=== PATIENT | female | born 1945 | race Caucasian/White ===

== ENCOUNTER → 2017-09-08 16:55 | Outpatient (CLI) | payer MEDICARE, OTHER, SELFPAY ==
[2017-09-08 18:01] LABS: Absolute Lymphocyte Count 2.27 X10^3/ul (0.83-4.51); Absolute Neutrophil Count 4.9 X10^3/uL (2.0-7.7); Basophil# 0.04 X10^3/uL; Basophil% 0.5 % (0-1); Eosinophil# 0.37 X10^3/uL; Eosinophils% 4.4 % (0-5); Hemoglobin 12.5 g/dl (12.0-15.0); Lymphocyte # 2.27 X10^3/ul (4.0); Lymphocyte % 27.1 % (19-41); Mean Corp Hgb Conc 31.3 g/gl (32-36); Mean Corpuscular Volume 96.2 fL (81-99); Mean Platelet Vol. 9.6 fl (6.2-12.0); Monocyte# 0.84 X10^3/uL; Neutrophil # 4.86 X10^3/uL (2.7-7.7); Neutrophil % 57.9 % (47-70); Platelet Count 280 K/mm3 (150-450); RBC Distribution Width CV 13.5 % (11.6-14.6); RBC Distribution Width SD 46.9 fl (35.1-43.9); Red Blood Count 4.16 M/mm3 (4.2-5.4); White Blood Count 8.4 K/mm3 (4.4-11.0)
[2017-09-08 18:14] LABS: Hemoglobin A1c 6.5 % (4.2-6.3)
[2017-09-08 18:15] LABS: POSITIVE COUNT NO; POSITIVE DIFFERENTIAL NO; POSITIVE MORPHOLOGY NO
[2017-09-08 18:22] LABS: Erythrocyte Sedimentation Rate 10 mm/hr (0-30)
[2017-09-08 18:37] LABS: Microalbumin:Creatinine Ratio 90.1 mg/g CRE (<30 mg/g CRE)
[2017-09-08 18:38] LABS: Vitamin B12 1869 pg/mL (211-911)
[2017-09-08 18:43] LABS: AST(SGOT) 30 U/L (15-37); Alanine Aminotransfer ALT/SGPT 37 U/L (13-56); Albumin, Serum 3.6 g/dL (3.2-5.0); Alkaline Phosphatase 105 U/L (45-117); Anion Gap 10 (5-15); BUN 31 mg/dL (7-18); BUN/Creat Ratio 20.9 RATIO (10-20); Calcium,Total 8.4 mg/dL (8.5-10.1); Chloride 104 mmol/L (98-107); Creatinine, Serum 1.48 mg/dL (0.55-1.02); EST Glomerular Filtration Rate 37 mL/min (>60); Est Glom Filt Rate - Afr Amer 45 mL/min (>60); Ferritin 46 ng/mL (8-252); Globulin 3.7 g/dL (2.2-4.2); Glucose 148 mg/dL (74-106); Potassium 3.3 mmol/L (3.5-5.1); Protein, Total 7.3 g/dL (6.4-8.2); Sodium Level 141 mmol/L (136-145); Thyroid Stim Hormone (TSH) 2.25 uIU/mL (0.358-3.74)
[2017-09-10 11:28] LABS: Hep C Antibodies 0.1 s/co ratio (0.0-0.9)
== END ==
PROVIDERS: Family Provider Family Medicine; PCP Family Medicine; Visit Provider Family Medicine
DX: E11.9 Type 2 diabetes mellitus without complications (principal); Z11.59 Encounter for screening for other viral diseases; R53.83 Other fatigue; M76.32 Iliotibial band syndrome, left leg
CPT/HCPCS: 36415; 80053; 82043; 82570; 82607; 82728; 83036; 84443; 85025; 85652; 86803

== ENCOUNTER 2017-12-09 19:37 | Emergency (ER) | payer MEDICARE, OTHER, SELFPAY ==
[2017-12-09 19:38] VITALS: BP 172/102; PULSE 71; RESP 16; TEMP 36.2; O2SAT 96; BMI 42.4
--- NOTE | 2017-12-09 20:40 | RAD_ITS ---
STUDY: X-RAY CHEST REASON FOR EXAM: Female, 72 years old. Status post fall TECHNIQUE: Single AP portable view of the chest. COMPARISON: None. FINDINGS: Markedly elevated right hemidiaphragm with right lower lobe scarring. Left lung is clear. There is no demonstrated pleural abnormality. Normal size heart. Normal mediastinum and jeremías. Normal visualized pulmonary arteries. Normal visualized aortic arch and descending thoracic aorta. Normal visualized thoracic spine. Normal visualized ribs, clavicles, and shoulders. There is no demonstrated abnormality of the visualized soft tissue structures of the upper abdomen. RAD/Chest PA and Lateral IMPRESSION: No acute findings Electronically Signed: Singh Pat DO at 21:19 EDT Tel , Service support ,
--- NOTE | 2017-12-09 20:40 | RAD_ITS ---
STUDY: X-RAY - RIGHT ELBOW REASON FOR EXAM: Female, 72 years old. Right elbow pain after fall TECHNIQUE: 3 view(s) of the elbow. COMPARISON: None. FINDINGS: Nondisplaced fracture through the radial head with soft tissue swelling and joint effusion. No dislocation RAD/Elbow min 3 Views IMPRESSION: Radial head fracture Electronically Signed: Singh Pat DO at 21:19 EDT Tel , Service support ,
--- NOTE | 2017-12-09 20:40 | RAD_ITS ---
STUDY: X-RAY - BILATERAL CLAVICLES REASON FOR EXAM: Female, 72 years old. Right AC joint pain after fall TECHNIQUE: 2 views of the right clavicle. 2 views of the left clavicle. COMPARISON: None. FINDINGS: Normal right clavicle. There is degenerative arthrosis of the right acromioclavicular joint without inferior osseous prominence. Normal right sternoclavicular articulation. Normal left clavicle. There is degenerative arthrosis of the left acromioclavicular joint without inferior osseous prominence. Normal left sternoclavicular articulation. Normal visualized bilateral pulmonary apices. RAD/A/C Jts Grady w or w/o Wts IMPRESSION: No acute findings Electronically Signed: Singh Pat DO at 21:22 EDT Tel , Service support ,
--- NOTE | 2017-12-09 20:57 | ED.VISSUMM ---
- ER Visit Summary Date of Service: 12/09/17 Chief Complaint: Mechanical fall with injury to right elbow, shoulder, ribs and knee History of Present Illness: The patient is a 72 F was at a ice [employer] establishment when she tripped and fell. Landing on her right side. She presents because of bruise and point tenderness over the right knee. She is concerned because she had a total knee arthroplasty. She is able to flex extend and weight-bear without pain. She points on one spot which is ecchymotic she complains of pain. She reports limited range of motion of the elbow and shoulder on the right side. She also complains of pain over the right ribs anterior to posterior axillary line over the fifth 6 and 7 rib area. She denies shortness of breath. She denies any abdominal pain. She denies hematuria. She denies neck pain, paresthesia, anesthesia motor weakness since the injury at the time of the injury. She denied head trauma. She denied loss of conscious. She is on no anticoagulant. Past medical history of type 2 diabetes and hypertension. Physical Examination: Vital signs are marked for an elevated blood pressure 172/102. Head is atraumatic normocephalic. Pupils are equal round reactive. Extraocular muscles are intact. TMs are pearly white with landmarks noted. Nares patent with no drainage. Posterior pharynx without erythema or exudate. Uvula is midline. There is no dysphonia or dysphasia. Trachea is midline. There is no stridor with auscultation of the neck. There is no cervical spine tenderness. She has full active range of motion. There is pain palpation over the right AC joint. There is no ecchymosis deformity of the clavicle. There is no pain the patient of the proximal humerus. There is no pain the patient of the lateral medial epicondyle or olecranon process. There is pain abrasion of the radial head with supination pronation. There is no pain the patient over the distal radius, ulna, carpal bones, metacarpal bones or phalanges. Axillary, median, radial and ulnar function intact. Radial pulses palpable. Breath sounds are slightly diminished on the right. There is no crepitus obtains air. There is no discomfort with AP pressure of the sternum. She has generalized tenderness right side anterior to posterior axillary line. Abdomen is soft nontender with no paraspinal megaly. Examination of right knee reveals ecchymosis. She has full active range of motion. There is no point bony tenderness. GCS is 15. Patient is alert and oriented ?3. Motor is 5/5. Sensation is intact. DTRs are symmetric without clonus or Babinski. Cranial nerves II through XII are intact. Finger to nose to finger was performed adequately. Test Results: Three-view x-ray of the elbow interpreted by me reveals a nondisplaced radial head fracture. There is degenerative joint disease noted as well. No other abnormality is noted. AC x-ray was obtained, 2 views, there is degenerative changes with no separation noted. Two-view chest x-ray reveals an elevated right hemidiaphragm with small effusion on the right. There is no rib fracture or pneumothorax noted. Emergency Department Course and Treatment: Patient drove herself to the ER and reason opiate analgesia was not given. Prescription for [place] was given. Treatment Plan: She was referred to Dr. Beryl Ruggiero [facility] who is on-call for orthopedics. She was placed in a sling and instructed follow-up with Dr. Soriano in 5-7 days Disposition: Discharged home with appropriate home-going instructions Impression: 1. Mechanical fall with injury initial encounter 2. Nondisplaced radial head fracture right elbow 3. First-degree shoulder separation, right 4. Rib contusion This note was generated with [employer] dictation software. It may contain incorrect words, spelling, and punctuation that were not noted in review of the chart prior to signing ED Disposition - Plan for ED Patient: Disposition: Home or Assisted Living Chief Complaint: Fall Instructions: ED Fx Radial Head, ED Sprain AC Joint, ED Contusion Rib Prescriptions: Hydrocodone Bitart/Apap 5-325 [[place] 5MG-325MG] 1 tab PO Q6H PRN PRN 3 Days #10 tab PRN Reason: Pain Referrals: Winston Torres MD [Primary Care Provider] - Kriss Ruggiero DO [STAFF PHYSICIAN] - 5-7 Days Additional Instructions: Wear her sling during the day for comfort.
--- NOTE | 2017-12-09 21:05 | ED.DCSUM_ITS ---
- ER Visit Summary Date of Service: 12/09/17 Chief Complaint: Mechanical fall with injury to right elbow, shoulder, ribs and knee History of Present Illness: The patient is a 72 F was at a ice [employer] establishment when she tripped and fell. Landing on her right side. She presents because of bruise and point tenderness over the right knee. She is concerned because she had a total knee arthroplasty. She is able to flex extend and weight-bear without pain. She points on one spot which is ecchymotic she complains of pain. She reports limited range of motion of the elbow and shoulder on the right side. She also complains of pain over the right ribs anterior to posterior axillary line over the fifth 6 and 7 rib area. She denies shortness of breath. She denies any abdominal pain. She denies hematuria. She denies neck pain, paresthesia, anesthesia motor weakness since the injury at the time of the injury. She denied head trauma. She denied loss of conscious. She is on no anticoagulant. Past medical history of type 2 diabetes and hypertension. Physical Examination: Vital signs are marked for an elevated blood pressure 172/ 102. Head is atraumatic normocephalic. Pupils are equal round reactive. Extraocular muscles are intact. TMs are pearly white with landmarks noted. Nares patent with no drainage. Posterior pharynx without erythema or exudate. Uvula is midline. There is no dysphonia or dysphasia. Trachea is midline. There is no stridor with auscultation of the neck. There is no cervical spine tenderness. She has full active range of motion. There is pain palpation over the right AC joint. There is no ecchymosis deformity of the clavicle. There is no pain the patient of the proximal humerus. There is no pain the patient of the lateral medial epicondyle or olecranon process. There is pain abrasion of the radial head with supination pronation. There is no pain the patient over the distal radius, ulna, carpal bones, metacarpal bones or phalanges. Axillary, median, radial and ulnar function intact. Radial pulses palpable. Breath sounds are slightly diminished on the right. There is no crepitus obtains air. There is no discomfort with AP pressure of the sternum. She has generalized tenderness right side anterior to posterior axillary line. Abdomen is soft nontender with no paraspinal megaly. Examination of right knee reveals ecchymosis. She has full active range of motion. There is no point bony tenderness. GCS is 15. Patient is alert and oriented ?3. Motor is 5/5. Sensation is intact. DTRs are symmetric without clonus or Babinski. Cranial nerves II through XII are intact. Finger to nose to finger was performed adequately. Test Results: Three-view x-ray of the elbow interpreted by me reveals a nondisplaced radial head fracture. There is degenerative joint disease noted as well. No other abnormality is noted. AC x-ray was obtained, 2 views, there is degenerative changes with no separation noted. Two-view chest x-ray reveals an elevated right hemidiaphragm with small effusion on the right. There is no rib fracture or pneumothorax noted. Emergency Department Course and Treatment: Patient drove herself to the ER and reason opiate analgesia was not given. Prescription for [place] was given. Treatment Plan: She was referred to Dr. Beryl Ruggiero [facility] who is on- call for orthopedics. She was placed in a sling and instructed follow-up with Dr. Soriano in 5-7 days Disposition: Discharged home with appropriate home-going instructions Impression: 1. Mechanical fall with injury initial encounter 2. Nondisplaced radial head fracture right elbow 3. First-degree shoulder separation, right 4. Rib contusion This note was generated with [employer] dictation software. It may contain incorrect words, spelling, and punctuation that were not noted in review of the chart prior to signing ED Disposition - Plan for ED Patient: Disposition: Home or Assisted Living Chief Complaint: Fall Instructions: ED Fx Radial Head, ED Sprain AC Joint, ED Contusion Rib Prescriptions: Hydrocodone Bitart/Apap 5-325 [[place] 5MG-325MG] 1 tab PO Q6H PRN PRN 3 Days #10 tab PRN Reason: Pain Referrals: Winston Torres MD [Primary Care Provider] - Kriss Ruggiero DO [STAFF PHYSICIAN] - 5-7 Days Additional Instructions: Wear her sling during the day for comfort.
[2017-12-09 21:21] VITALS: BP 140/80; PULSE 82; RESP 16; O2SAT 98
== END 2017-12-09 21:21 | disposition home or self-care (01) ==
PROVIDERS: Emergency Provider Emergency Medicine; Family Provider Family Medicine; PCP Family Medicine
DX: S52.124A Nondisplaced fracture of head of right radius, initial encounter for closed fracture (principal); S43.101A Unspecified dislocation of right acromioclavicular joint, initial encounter; S20.211A Contusion of right front wall of thorax, initial encounter; S80.01XA Contusion of right knee, initial encounter; M19.021 Primary osteoarthritis, right elbow; W01.0XXA Fall on same level from slipping, tripping and stumbling without subsequent striking against object, initial encounter; Y93.9 Activity, unspecified; Y92.9 Unspecified place or not applicable; E66.9 Obesity, unspecified; J98.4 Other disorders of lung; E11.9 Type 2 diabetes mellitus without complications; I10 Essential (primary) hypertension
CPT/HCPCS: 71046; 73050; 73080; 99283

== ENCOUNTER → 2017-12-11 14:46 | Outpatient (CLI) | payer MEDICARE, OTHER, SELFPAY ==
[2017-12-11 16:02] LABS: Anion Gap 6 (5-15); BUN 21 mg/dL (7-18); BUN/Creat Ratio 21.3 RATIO (10-20); Chloride 103 mmol/L (98-107); Cholesterol 128 mg/dL (200); Creatinine, Serum 0.99 mg/dL (0.55-1.02); EST Glomerular Filtration Rate 59 mL/min (>60); Est Glom Filt Rate - Afr Amer 71 mL/min (>60); Glucose 116 mg/dL (74-106); High Density Lipoprotein 42 mg/dL; Potassium 3.8 mmol/L (3.5-5.1); Sodium Level 139 mmol/L (136-145); Triglycerides 200 mg/dL; Very Low Density Lipoprotein 40 mg/dL (5-40)
== END ==
PROVIDERS: Family Provider Family Medicine; PCP Family Medicine; Visit Provider Family Medicine
DX: E78.00 Pure hypercholesterolemia, unspecified (principal); I10 Essential (primary) hypertension
CPT/HCPCS: 36415; 80048; 80061

== ENCOUNTER → 2017-12-18 15:37 | Outpatient (CLI) | payer MEDICARE, OTHER, SELFPAY ==
--- NOTE | 2017-12-18 15:39 | RAD_ITS ---
STUDY: X-RAY - CERVICAL SPINE REASON FOR EXAM: Female, 72 years old. Cervical spine pain after fall. TECHNIQUE: 6 view(s) of the cervical spine were obtained. COMPARISON: None FINDINGS: There is generalized osteopenia. Normal anterior atlantoaxial articulation. Normal odontoid process. Normal cervical lordosis. Normal vertebral bodies and endplates. There is multilevel intervertebral disc space narrowing, most marked at C2-3, C3-4 and C4-5. There is anterior bony neural foraminal encroachment at C4-5 bilaterally. There is diffuse uncovertebral and facet sclerosis. The soft tissue structures are unremarkable. RAD/Cerv Spine 4 or 5 Views IMPRESSION: Osteopenia with cervical spondylosis as described. Electronically Signed: Glen Victoria MD at 13:17 EDT , Service support ,
--- NOTE | 2017-12-18 15:39 | RAD_ITS ---
STUDY: X-RAY - RIGHT KNEE REASON FOR EXAM: Female, 72 years old. Right knee pain. History of fall. TECHNIQUE: Follow-up view(s) of the knee. COMPARISON: None. FINDINGS: There is generalized osteopenia. There is a 3 component total knee arthroplasty in alignment with no complications identified. The soft tissue structures are unremarkable. RAD/Knee 4 or More Views IMPRESSION: Uncomplicated 3 component total knee arthroplasty. No acute pathology. Electronically Signed: Glen Victoria MD at 13:16 EDT , Service support ,
== END ==
PROVIDERS: Family Provider Family Medicine; PCP Family Medicine; Visit Provider Orthopaedic Surgery
DX: M54.2 Cervicalgia (principal); M25.561 Pain in right knee
CPT/HCPCS: 72050; 73564

== ENCOUNTER 2018-02-24 13:00 | Outpatient (RCR) | payer MEDICARE, OTHER, SELFPAY ==
--- NOTE | 2017-12-31 16:08 | HP.OTEVAL ---
Patient's Visit Information JUSTINE REES is a 72 year old F, referred to Occupational Therapy by Kriss Ruggiero DO, with a diagnosis of right radial head fracture/ shoulder sprain. Date of Evaluation: 12/31/17 Occupational Therapist: GÓMEZ Whalen/Jeronimo, CHT - Subjective Subjective: This 72 year old female was seen for intial OT eval this date with dx of right radial head fracture/shoulder sprain. Pt states she fell on December 09, 2017. Pt states she went to the ER and then she was seen by orthopedic. Pt is right handed and lives alone. Pt states her forearm is painful in the PM and reports increase difficulty with BADLS and IADLS - Pain right elbow 3 Pain Intensity Range: 1, 4 right shoulder 3 Pain Intensity Range: 1, 4 - ROM Shoulder: right shoulder flex 100 abd 70 left WNL Elbow: right -25/125 left 0/145 Forearm: right supination 40/ left WNL - Strength Br[employer] Service Sales [employer] Management: right 22# left 50# Lateral Pinch: right 6# left 6# Tripod Pinch: right 2# left 5# - DASH-Disabilities of Arm, Shoulder& Hand DASH Sum: 116 - Goals Goal:: pt will demo a functional UB strength 4/5 equal to left to return pt to PLOF by d/c. pt will demo a right sales marketing strength of 40# or greater to return to her PLOF with meal prep by d/c Goal:: pt will demo right shoulder flex/abd to 155 or greater to increase pts ind. with dressing by d/c. pt will demo elbow flex to 140 ext to -5 to increase pts ind. with home mtg by d/c Goal:: pt will report a decrease in right UE pain to 2/10 or less during use for ADLS and IADLS by D/C Goal:: pt will report ind.with all BADLS and IADLS by d/c - Rehabilitation General Assessment: pt demo with limited right UE ROM of forearm, elbow and shoulder, weakness and limited IND. with ADLs/IADLs. pt demo need for skillled OT services 1-2x week for 4 weeks to return pts functional ROM and strength of right UE for pt to return to PLOF. Rehabilitation Potential: Good - Anticipated Interventions Anticipated Interventions: A/AAROM/PROM, Strengthening, Triggerpoint Release, Modalities, Ergonomic Education - Visit Plan Frequency: 1-2x /Week Duration: 4 Weeks TEXT: Thank you for the opportunity to evaluate your patient. For Medicare and Medicare HMO plans, please review the plan of care and approve it. It will need to be FAXED BACK to us at [phone] for Medicare purposes. Please let me know if there are questions or concerns regarding this plan of care. Physician Signature: Date:
--- NOTE | 2018-05-05 08:13 | HP.OTDCSUM_ITS ---
HP - OT D/C Summary It has been my pleasure to treat JUSTINE REES under orders from Kriss Ruggiero DO, for the diagnosis of right radial head fracture/ shoulder sprain for a total of 10 visit(s). Please see the following information for a summary of their discharge status. - Overall Improvement % Improvement: 85 - Objective Objective/Function: right elbow flex 140 a increase from 125. right elbow ext - 20. right forearm supination 60 a increase from 40 degrees. right shoulder flex 155 a increase from 100. right shoulder abduction 150 a increase from 70. right plasma center technician strength 45# a increase from 22#. right lateral pinch 12# a increase from 6#. right tripod pinch strength 6# a increase from 2#. pt demo increase in functional strength at this time. - Goals Patient Goals: Regain Mobility, Regain Strength, Decrease Pain, Use Hand/Wrist/Arm Normally Again, Be More Independent in ADLS Goal:: pt will demo a functional UB strength 4/5 equal to left to return pt to PLOF by d/c. pt will demo a right plasma center technician strength of 40# or greater to return to her PLOF with meal prep by d/c Goal:: pt will demo right shoulder flex/abd to 155 or greater to increase pts ind. with dressing by d/c. pt will demo elbow flex to 140 ext to -5 to increase pts ind. with home mtg by d/c Goal:: pt will report a decrease in right UE pain to 2/10 or less during use for ADLS and IADLS by D/C Goal:: pt will report ind.with all BADLS and IADLS by d/c - Plan Plan: D/C - D/C Information Discharge Comments: Pt was seen for 10 OT sessions. therapy challenged pts ROM and strength. PT If there are questions or concerns regarding this patient's occupational therapy, please fell free to call me at [phone]. Thank you for the referral of this patient. Sincerely, Michelle Guerrero, OTR/L, CHT
== END 2018-02-24 19:00 | disposition home or self-care (01) ==
LOC: OT 13:00
PROVIDERS: Family Provider Family Medicine; PCP Family Medicine; Visit Provider Orthopaedic Surgery
DX: S52.121D Displaced fracture of head of right radius, subsequent encounter for closed fracture with routine healing (principal); S43.401D Unspecified sprain of right shoulder joint, subsequent encounter
CPT/HCPCS: 97035; 97110; 97140; 97166; 97168; 97530

== ENCOUNTER → 2018-04-07 10:15 | Outpatient (CLI) | payer MEDICARE, OTHER, SELFPAY ==
[2018-04-07 15:01] LABS: Hemoglobin A1c 6.4 % (4.2-6.3)
[2018-04-08 09:53] LABS: Anion Gap 5 (5-15); BUN 17 mg/dL (7-18); BUN/Creat Ratio 16.2 RATIO (10-20); Calcium,Total 8.6 mg/dL (8.5-10.1); Chloride 105 mmol/L (98-107); Creatinine, Serum 1.05 mg/dL (0.55-1.02); EST Glomerular Filtration Rate 55 mL/min (>60); Est Glom Filt Rate - Afr Amer 66 mL/min (>60); Glucose 140 mg/dL (74-106); Potassium 3.7 mmol/L (3.5-5.1); Sodium Level 140 mmol/L (136-145); Thyroid Stim Hormone (TSH) 3.07 uIU/mL (0.358-3.74)
== END ==
PROVIDERS: Family Provider Family Medicine; PCP Family Medicine; Visit Provider Family Medicine
DX: I10 Essential (primary) hypertension (principal); E11.9 Type 2 diabetes mellitus without complications; E03.9 Hypothyroidism, unspecified
CPT/HCPCS: 36415; 80048; 83036; 84443

== ENCOUNTER → 2018-04-08 06:55 | Outpatient (CLI) | payer MEDICARE, OTHER, SELFPAY ==
--- NOTE | 2018-04-08 09:50 | NEURO ---
NCS and/or EMG Patient Report Ordering Doctor: Kriss Ruggiero DATE OF SERVICE: 04/08/18 This is a left upper extremity EMG and nerve conduction study performed on this 72-year-old female with numbness in all fingertips of the left hand. Patient symptoms started 1 week after having fallen in November of this year however all injuries were on the right side and she denies neck pain. Left upper extremity nerve conduction study is performed demonstrating prolongation of the median motor and sensory distal latencies into the severe range with reduction of amplitude and conduction velocities. There is also very mild decrease in the amplitude of the ulnar motor response across the elbow which also demonstrates slowing of conduction velocity across the elbow and mild prolongation of distal latency across the elbow. The median and ulnar F-wave latencies on the left are intact. Left upper extremity needle electromyography is performed. Muscles evaluated included the first dorsal interosseous, abductor pollicis brevis, brachioradialis, biceps, triceps and deltoid muscles. The abductor pollicis brevis muscle did demonstrate mild increase in motor unit amplitude but no evidence of abnormal insertional activity or pathologic spontaneous activity. All other muscles demonstrated normal insertional activity with absence of pathologic spontaneous activity, as well as normal motor unit recruitment pattern and amplitude. 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
== END ==
PROVIDERS: Family Provider Family Medicine; PCP Family Medicine; Referring Provider Orthopaedic Surgery; Visit Provider Orthopaedic Surgery
DX: R20.2 Paresthesia of skin (principal)
CPT/HCPCS: 95886; 95909

== ENCOUNTER → 2018-06-06 09:02 | Outpatient (CLI) | payer MEDICARE, OTHER, SELFPAY ==
--- NOTE | 2018-06-06 09:05 | BI_ITS ---
MAMMOGRAPHY - BILATERAL SCREENING REASON FOR EXAM: Female, 72 years old. Routine annual screening examination. PERTINENT HISTORY: Grandmother with breast cancer. Remote left excisional breast biopsy. TECHNIQUE: Digital bilateral breast colin (3D mammographic acquisition) in the CC and MLO projections. 2-D mediolateral oblique (MLO) and craniocaudad (CC) views of both breasts were obtained. CAD: Full Field Digital Mammography with Computer Added Detection was performed. COMPARISON: Comparison is made with prior study dated December 20, 2016 and December 20, 2015. FINDINGS: Breast Composition: The breasts are almost entirely fatty. There are no dominant masses or suspicious calcifications. Stable small benign-appearing bilateral axillary lymph nodes. No other significant abnormalities are identified. There has been no significant change since the prior study. BI/SCREENING MAMM (CAD), BILAT IMPRESSION: Stable bilateral screening mammogram. Yearly follow-up mammogram recommended. (A) ASSESSMENT CATEGORY: BIRADS Category 2: Benign. A letter regarding these results will be sent to the patient by the facility within 30 days. Approximately 10% of breast cancers are not detected by mammography. A normal mammogram should not delay biopsy of a clinically suspicious abnormality. [id number] Electronically Signed: Osmany Etienne MD at 8:48 EST Tel [phone], Service support ,
--- OUTSIDE RECORDS SUMMARY | 2018-09-09 09:06 | XMS RPT_ITS ---
:1945 Author Organization OHIP Care Team Providers Name Role Phone Winston Torres Attending Unavailable Torres, Winston Primary Care Unavailable Bryan Schroeder Attending Unavailable Torres, Winston Primary Care Unavailable Torres, Winston Primary Care Unavailable Shon Singh Attending Unavailable Winston Torres Attending Unavailable Torres, Winston Primary Care Unavailable Kriss Ruggiero Attending Unavailable Brian Winston Referring Unavailable Torres, Winston Primary Care Unavailable Kriss Ruggiero Attending Unavailable Kriss Ruggiero Referring Unavailable Torres, Winston Primary Care Unavailable Kriss Ruggiero Attending Unavailable Kriss Ruggiero Referring Unavailable Torres, Winston Primary Care Unavailable Kriss Ruggiero Attending Unavailable Kriss Ruggiero Referring Unavailable Winston Torres Primary Care Unavailable Winston Torres Attending Unavailable Winston Torres Primary Care Unavailable Winston Torres Attending Unavailable Winston Torres Primary Care Unavailable PROBLEMS PROBLEMS DATE TYPE CONDITION / CODE ATTENDING STATUS SOURCE 06/06/2018 Unknown Z12.31 - Encounter Brian Winston Active [facility] for screening Community mammogram for Hospital malignant neoplasm Repository of breast / Z12.31(ICD-10) 05/05/2018 Unknown S52.121D - Chicorelli, Active [facility] Displaced fracture [facility] of head of right Hospital radius, subsequent Repository encounter for closed fracture with routine healing / S52.121D(ICD-10) 12/18/2017 Unknown M54.2 - Cervicalgia Chicoreltari, Active [facility] / M54.2(ICD-10) [facility] Repository 12/18/2017 Unknown M25.561 - Pain in Chicbranden, Active [facility] right knee / [facility] M25.561(ICD-10) Hospital Repository 12/09/2017 Unknown S52.121A - Singh, Shon Active [facility] Displaced fracture Community of head of right Hospital radius, initial Repository encounter for closed fracture / S52.121A(ICD-10) 09/08/2017 Unknown M76.32 - Iliotibial Bryan Schroeder Active [facility] band syndrome, left Community leg / Hospital M76.32(ICD-10) Repository 09/08/2017 Unknown E11.9 - Type 2 Bryan Schroeder Active [facility] diabetes mellitus Community without Hospital complications / Repository E11.9(ICD-10) 09/08/2017 Unknown Z11.59 - Encounter Bryan Schroeder Active [facility] for screening for Community other viral Hospital diseases / Repository Z11.59(ICD-10) PROCEDURES PROCEDURES No Procedure Records FoundRESULTS RESULTS SCREENING MAMM (CAD), Observed: 06/06/2018 Status: F Source: [facility] BILAT 9:06 AM [facility] REPOSITORY [facility] Imaging Services [address] [place] [address] SCREENING MAMM (CAD), BILAT MR#: [id number] Acct: [id number] Name: ROSEMARY SCHROEDER Rep #: [id number] : 1945 F 72 From: Osmany Etienne MD PCP: Winston Torres MD Status: REG CLI Study: SCREENING MAMM (CAD), BILAT Date of Exam: 06/06/18 Exam# [id number] Ordering Dr: Winston Torres MD MAMMOGRAPHY - BILATERAL SCREENING REASON FOR EXAM: Female, 72 years old. Routine annual screening examination. PERTINENT HISTORY: Grandmother with breast cancer. Remote left excisional breast biopsy. TECHNIQUE: Digital bilateral breast colin (3D mammographic acquisition) in the CC and MLO projections. 2-D mediolateral oblique (MLO) and craniocaudad (CC) views of both breasts were obtained. CAD: Full Field Digital Mammography with Computer Added Detection was performed. COMPARISON: Comparison is made with prior study dated December 20, 2016 and December 20, 2015. FINDINGS: Breast Composition: The breasts are almost entirely fatty. There are no dominant masses or suspicious calcifications. Stable small benign-appearing bilateral axillary lymph nodes. No other significant abnormalities are identified. There has been no significant change since the prior study. BI/SCREENING MAMM (CAD), BILAT IMPRESSION: Stable bilateral screening mammogram. Yearly follow-up mammogram recommended. (A) ASSESSMENT CATEGORY: BIRADS Category 2: Benign. A letter regarding these results will be sent to the patient by the facility within 30 days. Approximately 10% of breast cancers are not detected by mammography. A normal mammogram should not delay biopsy of a clinically suspicious abnormality. [id number] Electronically Signed: Osmany Etienne MD at 8:48 EST Tel [phone], Service support , CC: Winston Torres MD Construction Teacher: Signed OT D/C SUMMARY Observed: 05/05/2018 Status: F Source: [place] 12:17 PM [facility] REPOSITORY [facility] Occupational Therapy [facility] [address] [place] [address]. [address] [place] [address] Fax REHABILITATION SERVICES DISCHARGE SUMMARY MR#: [id number] Acct: [id number] Name: ROSEMARY SCHROEDER Rep #: [id number] : 1945 72 From: Michelle MAGAÑA/Jeronimo, CHT Referring DrChristen: Kriss Ruggiero DO Status: REG RCR Eval Date: Discharge Date: HP - OT D/C Summary It has been my pleasure to treat ROSEMARY SCHROEDER under orders from Kriss Ruggiero DO, for the diagnosis of right radial head fracture/ shoulder sprain for a total of 10 visit(s). Please see the following information for a summary of their discharge status. - Overall Improvement % Improvement: 85 - Objective Objective/Function: right elbow flex 140 a increase from 125. right elbow ext -20. right forearm supination 60 a increase from 40 degrees. right shoulder flex 155 a increase from 100. right shoulder abduction 150 a increase from 70. right sports manager strength 45# a increase from 22#. right lateral pinch 12# a increase from 6#. right tripod pinch strength 6# a increase from 2#. pt demo increase in functional strength at this time. - Goals Patient Goals: Regain Mobility, Regain Strength, Decrease Pain, Use Hand/Wrist/Arm Normally Again, Be More Independent in ADLS Goal:: pt will demo a functional UB strength 4/5 equal to left to return pt to PLOF by d/c. pt will demo a right sports manager strength of 40# or greater to return to her PLOF with meal prep by d/c Goal:: pt will demo right shoulder flex/abd to 155 or greater to increase pts ind. with dressing by d/c. pt will demo elbow flex to 140 ext to -5 to increase pts ind. with home mtg by d/c Goal:: pt will report a decrease in right UE pain to 2/10 or less during use for ADLS and IADLS by D/C Goal:: pt will report ind.with all BADLS and IADLS by d/c - Plan Plan: D/C - D/C Information Discharge Comments: Pt was seen for 10 OT sessions. therapy challenged pts ROM and strength. PT If there are questions or concerns regarding this patient's occupational therapy, please fell free to call me at [phone]. Thank you for the referral of this patient. Sincerely, GÓMEZ Whalen/TEE Decker <Electronically signed by Michelle MAGAÑA/TEE Decker> 05/05/18 1217 CC: Kriss Ruggiero DO; Winston Torres MD MK Signed NCS AND/OR EMG Observed: 04/08/2018 Status: F Source: [place] PATIENT 10:25 AM [facility] REPOSITORY [facility] Pulmonary Services/Neurology [address] [place] [address] MR#: [id number] Acct: [id number] Name: ROSEMARY SCHROEDER Rep #: [id number] : 1945 72 From: Matty Ngo MD Referring Dr: Kriss Ruggiero DO Status: REG CLI Ordering Dr: Date: Location: N Sex: F C NCS and/or EMG Patient Report Ordering Doctor: Kriss Ruggiero DATE OF SERVICE: 04/08/18 This is a left upper extremity EMG and nerve conduction study performed on this 72-year-old female with numbness in all fingertips of the left hand. Patient symptoms started 1 week after having fallen in November of this year however all injuries were on the right side and she denies neck pain. Left upper extremity nerve conduction study is performed demonstrating prolongation of the median motor and sensory distal latencies into the severe range with reduction of amplitude and conduction velocities. There is also very mild decrease in the amplitude of the ulnar motor response across the elbow which also demonstrates slowing of conduction velocity across the elbow and mild prolongation of distal latency across the elbow. The median and ulnar F-wave latencies on the left are intact. Left upper extremity needle electromyography is performed. Muscles evaluated included the first dorsal interosseous, abductor pollicis brevis, brachioradialis, biceps, triceps and deltoid muscles. The abductor pollicis brevis muscle did demonstrate mild increase in motor unit amplitude but no evidence of abnormal insertional activity or pathologic spontaneous activity. All other muscles demonstrated normal insertional activity with absence of pathologic spontaneous activity, as well as normal motor unit recruitment pattern and amplitude. 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 04/08/18 1025 <Electronically signed by Matty Ngo MD> Date Matty Ngo MD CC: Kriss Ruggiero DO; Winston Torres MD; Matty Ngo MD Date Dictated: 04/08/18949 Date Transcribed: 04/08/18949 Construction Teacher: NF Signed HEMOGLOBIN A1C Collected: 04/07/2018 Status: F Source: [place] 1:40 PM [facility] REPOSITORY TYPE CODE TESTS RESULT OUT OF RANGE REFERENCE UNITS LAB L501.9985 4.2-6.3 % High HGB A1C 6.4 Performed By: #### L501.9985, L500.2500, L501.9520 #### [facility] [address] [place], [address] BASIC METABOLIC Collected: 04/07/2018 Status: F Source: [place] PROFILE (BMP) 1:40 PM [facility] REPOSITORY TYPE CODE TESTS RESULT OUT OF RANGE REFERENCE UNITS LAB L501.0100 74-106 mg/dL High GLU 140 Result Comment: Fasting Glucose result greater than or equal to 126 mg/dL suggests DIABETES MELLITUS per A.D.A. criteria. Please note revised GLUCOSE reference range effective 2017. LAB L501.1000 7-18 mg/dL Normal BUN 17 LAB L501.1100 0.55-1.02 mg/dL High CREAT,SERUM 1.05 Result Comment: The validity of the calculated GFR AND GFRAA in patients over 70 years has not been determined. Clinical correlation is essential. LAB L501.1110 >60 mL/min Low EST GFR 55 Result Comment: Non- GFR Calc LAB L501.1115 >60 mL/min Normal EST GFR - AA 66 Result Comment: GFR Calc LAB L501.1300 10-20 RATIO Normal BUN/CRE 16.2 LAB L501.2200 8.5-10.1 mg/dL CA Normal 8.6 LAB L501.5300 136-145 mmol/L NA Normal 140 LAB L501.5600 3.5-5.1 mmol/L K Normal 3.7 LAB L501.5900 98-107 mmol/L CL Normal 105 LAB L501.6100 21.0-32.0 mmol/L Normal CO2 30.0 LAB L501.6200 5-15 Normal GAP 5 Performed By: #### L501.9985, L500.2500, L501.9520 #### [facility] [address] [place], [address] THYROID STIM HORMONE Collected: 04/07/2018 Status: F Source: [place] (TSH) 1:40 PM [facility] REPOSITORY TYPE CODE TESTS RESULT OUT OF RANGE REFERENCE UNITS LAB L501.9520 0.358-3.74 uIU/mL Normal TSH 3.07 Performed By: #### L501.9985, L500.2500, L501.9520 #### [facility] [address] [place], [place], [address] OT GENERAL EVALUATION Observed: 01/07/2018 Status: F Source: [place] 10:40 AM [facility] REPOSITORY [facility] Occupational Therapy [facility] [place], [place] [address] Fax REHABILITATION SERVICES INITIAL EVALUATION MR#: [id number] Acct: [id number] Name: ROSEMARY SCHROEDER Rep #: [id number] : 1945 72 From: Michelle MOYER CHT Referring Dr.: Kriss Ruggiero DO Status: REG RCR Insurance: MEDICARE PART A B Eval Date: COMMERCIAL OTHER Patient's Visit Information ROSEMARY SCHROEDER is a 72 year old F, referred to Occupational Therapy by Kriss Ruggiero DO, with a diagnosis of right radial head fracture/ shoulder sprain. Date of Evaluation: 12/31/17 Occupational Therapist: JOÃO Whalen CHT - Subjective Subjective: This 72 year old female was seen for intial OT eval this date with dx of right radial head fracture/shoulder sprain. Pt states she fell on December 09, 2017. Pt states she went to the ER and then she was seen by orthopedic. Pt is right handed and lives alone. Pt states her forearm is painful in the PM and reports increase difficulty with BADLS and IADLS - Pain right elbow 3 Pain Intensity Range: 1, 4 right shoulder 3 Pain Intensity Range: 1, 4 - ROM Shoulder: right shoulder flex 100 abd 70 left WNL Elbow: right -25/125 left 0/145 Forearm: right supination 40/ left WNL - Strength Bench Lay Out Technician: right 22# left 50# Lateral Pinch: right 6# left 6# Tripod Pinch: right 2# left 5# - DASH-Disabilities of Arm, Shoulder AND Hand DASH Sum: 116 - Goals Goal:: pt will demo a functional UB strength 4/5 equal to left to return pt to PLOF by d/c. pt will demo a right sports manager strength of 40# or greater to return to her PLOF with meal prep by d/c Goal:: pt will demo right shoulder flex/abd to 155 or greater to increase pts ind. with dressing by d/c. pt will demo elbow flex to 140 ext to -5 to increase pts ind. with home mtg by d/c Goal:: pt will report a decrease in right UE pain to 2/10 or less during use for ADLS and IADLS by D/C Goal:: pt will report ind.with all BADLS and IADLS by d/c - Rehabilitation General Assessment: pt demo with limited right UE ROM of forearm, elbow and shoulder, weakness and limited IND. with ADLs/IADLs. pt demo need for skillled OT services 1-2x week for 4 weeks to return pts functional ROM and strength of right UE for pt to return to PLOF. Rehabilitation Potential: Good - Anticipated Interventions Anticipated Interventions: A/AAROM/PROM, Strengthening, Triggerpoint Release, Modalities, Ergonomic Education - Visit Plan Frequency: 1-2x /Week Duration: 4 Weeks TEXT: Thank you for the opportunity to evaluate your patient. For Medicare and Medicare HMO plans, please review the plan of care and approve it. It will need to be FAXED BACK to us at [phone] for Medicare purposes. Please let me know if there are questions or concerns regarding this plan of care. Physician Signature: Date: <Electronically signed by Michelle MOYER CHT> 01/07/18 1040 CC: Kriss Ruggiero DO; Winston Torres MD MK Signed For Medicare only, by signing this I certify the plan of care. Physicians Signature Date ORTHOPEDIC VISIT Observed: 12/23/2017 Status: F Source: [place] REPORT 10:19 AM [facility] REPOSITORY [facility] Orthopaedics AND Sports Medicine [address] [place] [address] OFFICE VISIT Date of Service: 12/18/17 MR#: [id number] Acct: [id number] Name: ROSEMARY SCHROEDER Rep #: [id number] : 1945 Provider: Kriss Ruggiero DO Age/Sex: 72/F [place] [facility] [place] Status: Signed Intake Intake Visit Reasons: RIGHT ELBOW Chief Complaint: right shoulder sepertaion and broken elbow Front Desk Worker Required: No Is patient in pain?: Yes (achy and then will become sharp randomly) Pain scale (1-10): 5 Allergies codeine Adverse Reaction (Verified 12/09/17 19:39) Nausea/Vom/Diarrhea Medications Hydrocodone Bitart/Apap 5-325 [[place] 5MG-325MG] 1 tab PO Q6H PRN PRN 3 Days #10 tab 12/09/17 [Rx] atenolol 50 mg tablet 50 mg PO QDAY 12/18/17 [History Confirmed 12/18/17] diclofenac sodium 75 mg tablet,delayed release 75 mg PO BID 12/18/17 [History Confirmed 12/18/17] glimepiride 2 mg tablet 2 mg PO QAM 12/18/17 [History Confirmed 12/18/17] hydrochlorothiazide 12.5 mg capsule 12.5 mg PO QAM 12/18/17 [History Confirmed 12/18/17] levothyroxine 50 mcg capsule 50 mcg PO QDAY 12/18/17 [History Confirmed 12/18/17] multivitamin tablet 1 tab PO QAM 12/18/17 [History Confirmed 12/18/17] pantoprazole 20 mg tablet,delayed release 20 mg PO QDAY 12/18/17 [History Confirmed 12/18/17] venlafaxine ER 75 mg capsule,extended release 24 hr 75 mg PO QDAY 12/18/17 [History Confirmed 12/18/17] vitamins A,C,N-hkko-ocbfsy 14,320 unit-226 mg-200 unit capsule cap PO 12/18/17 [History Confirmed 12/18/17] vitamins-lipotropics 200 mg-100 mg tablet tab PO 12/18/17 [History Confirmed 12/18/17] Post menopausal: Yes PFSH Medical History Diabetes (Acute) Incontinence (Acute) Joint swelling (Acute) Morning stiffness of joints (Acute) Numbness (Acute) Shortness of breath (Acute) Hypertension (Chronic) Surgical History History of appendectomy (Acute) History of right knee joint replacement (Acute) Hx laparoscopic cholecystectomy (Acute) Hx of hysterectomy (Acute) Social History Smoking Status: Never smoker alcohol intake: never HPI RIGHT ELBOW: Details: ROSEMARY SCHROEDER is a 72 year old F here today for right shoulder separation and a broken elbow. She got this injury by falling in a parking lot on asphalt on the at 5:30 pm. pain is at shoulder and elbow. it radiates mildly between and then from the elbow it radiates to the hand and fingers. She describes the pain as achy with random sharp pains. not moving makes it better, moving makes it worse. xrays were taken at the hospital on the . No physical therapy and no injections. She takes prescribed hydrocodone as needed and tylenol, and ices it occasionally. Patient complains of cervical spine pain but notes she has had pain since prior to her fall. [place] [facility] [place] as per HPI, Reports joint pain, Reports joint swelling, Reports limited joint movement, Reports muscle weakness, Reports radiating pain into limb, Reports stiffness Ortho Exam Right Elbow Skin/Wound: Yes CDI ELBOW: pull pronation. 45 degrees supination Right Shoulder Testing: Positive TTP AC Joint SHOULDER: ttp trapezius. limited range of motion of cervical spine. Assessment AND Plan Plan Personally reviewed patients right elbow fracture which showed a nondisplaced fracture of the radial head. See imaging report in chart for further details. Obtained X-rays of patient's right knee and cervical spine due to bruising and pain since her fall. Personally reviewed x-rays. There is no obvious fracture, dislocation, or lucency noted. Patient will start physical therapy in 1 week. She may remove her sling at that time. Gave the patient a script for therapy.Recommended the patient see Dr Ochoa for her cervical spine. She should schedule an appointment. Ordered an EMG of her right upper extremity. Follow up on an as needed basis or sooner if pain, swelling, numbness or associated symptoms, or concerns develop. All questions answered. Patient in agreement of plan. Orders Orders: Coding Level of Care Code Off vis,new,level 3 12/23/17 1019 <Electronically signed by Kriss Ruggiero DO> Date Kriss Ruggiero DO Cosigner Signature: Date (if applicable) CC: KNEE 4 OR MORE Observed: 12/18/2017 Status: F Source: [place] VIEWS 3:39 PM [facility] REPOSITORY [facility] Imaging Services [address] [place] [address] Knee 4 or More Views MR#: [id number] Acct: [id number] Name: ROSEMARY SCHROEDER Rep #: [id number] : 1945 F 72 From: Glen Victoria MD PCP: Winston Torres MD Status: REG CLI Study: Knee 4 or More Views Date of Exam: 12/18/17 Exam# [id number] Ordering Dr: Kriss Ruggiero DO STUDY: X-RAY - RIGHT KNEE REASON FOR EXAM: Female, 72 years old. Right knee pain. History of fall. TECHNIQUE: Follow-up view(s) of the knee. COMPARISON: None. FINDINGS: There is generalized osteopenia. There is a 3 component total knee arthroplasty in alignment with no complications identified. The soft tissue structures are unremarkable. RAD/Knee 4 or More Views IMPRESSION: Uncomplicated 3 component total knee arthroplasty. No acute pathology. Electronically Signed: Glen Victoria MD at 13:16 EDT , Service support , CC: Kriss Ruggiero DO; Winston Torres MD Construction Teacher: Signed CERV SPINE 4 OR 5 Observed: 12/18/2017 Status: F Source: [place] VIEWS 3:39 PM [facility] REPOSITORY [facility] Imaging Services [address] [place] [address] Cerv Spine 4 or 5 Views MR#: [id number] Acct: [id number] Name: ROSEMARY SCHROEDER Rep #: [id number] : 1945 F 72 From: Glen Victoria MD PCP: Winston Torres MD Status: REG CLI Study: Cerv Spine 4 or 5 Views Date of Exam: 12/18/17 Exam# [id number] Ordering Dr: Kriss Ruggiero DO STUDY: X-RAY - CERVICAL SPINE REASON FOR EXAM: Female, 72 years old. Cervical spine pain after fall. TECHNIQUE: 6 view(s) of the cervical spine were obtained. COMPARISON: None FINDINGS: There is generalized osteopenia. Normal anterior atlantoaxial articulation. Normal odontoid process. Normal cervical lordosis. Normal vertebral bodies and endplates. There is multilevel intervertebral disc space narrowing, most marked at C2-3, C3-4 and C4-5. There is anterior bony neural foraminal encroachment at C4-5 bilaterally. There is diffuse uncovertebral and facet sclerosis. The soft tissue structures are unremarkable. RAD/Cerv Spine 4 or 5 Views IMPRESSION: Osteopenia with cervical spondylosis as described. Electronically Signed: Glen Victoria MD at 13:17 EDT , Service support , CC: Kriss Ruggiero DO; Winston Torres MD Construction Teacher: Signed BASIC METABOLIC Collected: 12/11/2017 Status: F Source: [place] PROFILE (BMP) 2:48 PM [facility] REPOSITORY Order Comment: Order Date: 10/07/17 Order Info: [id number] - BMP Order Info: 25535-6 - LIPID TYPE CODE TESTS RESULT OUT OF RANGE REFERENCE UNITS LAB L501.0100 74-106 mg/dL High GLU 116 Result Comment: Fasting Glucose result from 100 to 125 mg/dL suggests IMPAIRED HOMEOSTASIS per A.D.A. criteria. Please note revised GLUCOSE reference range effective 2017. LAB L501.1000 7-18 mg/dL High BUN 21 LAB L501.1100 0.55-1.02 mg/dL Normal CREAT,SERUM 0.99 Result Comment: The validity of the calculated GFR AND GFRAA in patients over 70 years has not been determined. Clinical correlation is essential. LAB L501.1110 >60 mL/min Low EST GFR 59 Result Comment: Non- GFR Calc LAB L501.1115 >60 mL/min Normal EST GFR - AA 71 Result Comment: GFR Calc LAB L501.1300 10-20 RATIO High BUN/CRE 21.3 LAB L501.2200 8.5-10.1 mg/dL CA Normal 9.0 LAB L501.5300 136-145 mmol/L NA Normal 139 LAB L501.5600 3.5-5.1 mmol/L K Normal 3.8 LAB L501.5900 98-107 mmol/L CL Normal 103 LAB L501.6100 21.0-32.0 mmol/L Normal CO2 30.0 LAB L501.6200 5-15 Normal GAP 6 Performed By: #### L500.2500, L500.4100 #### [facility] [address] [place], [address] LIPID PROFILE Collected: 12/11/2017 Status: F Source: [place] 2:48 PM [facility] REPOSITORY Order Comment: Order Date: 10/07/17 Order Info: 0667-1 - BMP Order Info: 92998-8 - LIPID TYPE CODE TESTS RESULT OUT OF RANGE REFERENCE UNITS LAB L501.4900 200 mg/dL Normal CHOL 128 Result Comment: <200 mg/dL Desirable 200-240 mg/dL Borderline >240 mg/dL High Risk LAB L501.5000 mg/dL High TRIG 200 Result Comment: The drugs N-Acetylcysteine and Metamizole may falsely depress this assay. Serum Triglycerides Reference Interval Normal <150 mg/dL Borderline high 150 - 199 mg/dL High 200 - 499 mg/dL Very High > or = 500 mg/dL LAB L501.6400 mg/dL Normal HDL 42 Result Comment: The drugs N-Acetylcysteine and Metamizole may falsely depress this assay. Reference Range HDL <40 mg/dL Low HDL Cholesterol HDL >or= 60 mg/dL High HDL Cholesterol LAB L501.6500 0-130 mg/dL Normal LDL 46 LAB L501.6600 5-40 mg/dL Normal VLDL 40 Performed By: #### L500.2500, L500.4100 #### [facility] [address] [place], [address] EMERGENCY DEPARTMENT Observed: 12/09/2017 Status: F Source: [place] SUMMARY 9:05 PM [facility] REPOSITORY [facility] Medical Records Department [address] [place] [address] Emergency Department Summary 12/09/172056 MR#: [id number] Acct: [id number] Name: ROSEMARY SCHROEDER Rep #: [id number] : 1945 72 From: Shon Singh MD PCP: Winston Torres MD Status: REG ER - ER Visit Summary Date of Service: 12/09/17 Chief Complaint: Mechanical fall with injury to right elbow, shoulder, ribs and knee History of Present Illness: The patient is a 72 F was at a [employer] establishment when she tripped and fell. Landing on her right side. She presents because of bruise and point tenderness over the right knee. She is concerned because she had a total knee arthroplasty. She is able to flex extend and weight-bear without pain. She points on one spot which is ecchymotic she complains of pain. She reports limited range of motion of the elbow and shoulder on the right side. She also complains of pain over the right ribs anterior to posterior axillary line over the fifth 6 and 7 rib area. She denies shortness of breath. She denies any abdominal pain. She denies hematuria. She denies neck pain, paresthesia, anesthesia motor weakness since the injury at the time of the injury. She denied head trauma. She denied loss of conscious. She is on no anticoagulant. Past medical history of type 2 diabetes and hypertension. Physical Examination: Vital signs are marked for an elevated blood pressure 172/102. Head is atraumatic normocephalic. Pupils are equal round reactive. Extraocular muscles are intact. TMs are pearly white with landmarks noted. Nares patent with no drainage. Posterior pharynx without erythema or exudate. Uvula is midline. There is no dysphonia or dysphasia. Trachea is midline. There is no stridor with auscultation of the neck. There is no cervical spine tenderness. She has full active range of motion. There is pain palpation over the right AC joint. There is no ecchymosis deformity of the clavicle. There is no pain the patient of the proximal humerus. There is no pain the patient of the lateral medial epicondyle or olecranon process. There is pain abrasion of the radial head with supination pronation. There is no pain the patient over the distal radius, ulna, carpal bones, metacarpal bones or phalanges. Axillary, median, radial and ulnar function intact. Radial pulses palpable. Breath sounds are slightly diminished on the right. There is no crepitus obtains air. There is no discomfort with AP pressure of the sternum. She has generalized tenderness right side anterior to posterior axillary line. Abdomen is soft nontender with no paraspinal megaly. Examination of right knee reveals ecchymosis. She has full active range of motion. There is no point bony tenderness. GCS is 15. Patient is alert and oriented 3. Motor is 5/5. Sensation is intact. DTRs are symmetric without clonus or Babinski. Cranial nerves II through XII are intact. Finger to nose to finger was performed adequately. Test Results: Three-view x-ray of the elbow interpreted by me reveals a nondisplaced radial head fracture. There is degenerative joint disease noted as well. No other abnormality is noted. AC x-ray was obtained, 2 views, there is degenerative changes with no separation noted. Two-view chest x-ray reveals an elevated right hemidiaphragm with small effusion on the right. There is no rib fracture or pneumothorax noted. Emergency Department Course and Treatment: Patient drove herself to the ER and reason opiate analgesia was not given. Prescription for [place] was given. Treatment Plan: She was referred to Dr. Beryl Ruggiero [facility] who is on-call for orthopedics. She was placed in a sling and instructed follow- up with Dr. Soriano in 5-7 days Disposition: Discharged home with appropriate home-going instructions Impression: 1. Mechanical fall with injury initial encounter 2. Nondisplaced radial head fracture right elbow 3. First-degree shoulder separation, right 4. Rib contusion This note was generated with [employer] dictation software. It may contain incorrect words, spelling, and punctuation that were not noted in review of the chart prior to signing ED Disposition - Plan for ED Patient: Disposition: Home or Assisted Living Chief Complaint: Fall Instructions: ED Fx Radial Head, ED Sprain AC Joint, ED Contusion Rib Prescriptions: Hydrocodone Bitart/Apap 5-325 [[place] 5MG-325MG] 1 tab PO Q6H PRN PRN 3 Days #10 tab PRN Reason: Pain Referrals: Winston Torres MD [Primary Care Provider] - Kriss Ruggiero DO [STAFF PHYSICIAN] - 5-7 Days Additional Instructions: Wear her sling during the day for comfort. What to do if you have Problems For any increased pain, shortness of breath, bleeding, nausea or vomiting, chest pain, or any unexpected problems, contact your Primary Care Provider. Call [facility] ([phone]) or report to the closest Emergency Room. Call 911 if necessary. 12/09/17 3419 <Electronically signed by Shon Singh MD> Date Shon Singh MD Cosigner Signature (If Indicated): Date CC: Kriss Ruggiero DO; Winston Torres MD ELBOW MIN 3 VIEWS Observed: 12/09/2017 Status: F Source: [place] 8:06 PM [facility] REPOSITORY [facility] Imaging Services [address] [place] [address] Elbow min 3 Views MR#: [id number] Acct: [id number] Name: NEGRITAROSEMARY Rep #: [id number] : 1945 F 72 From: Singh Pat DO PCP: Winston Torres MD Status: REG ER Study: Elbow min 3 Views Date of Exam: 12/09/17 Exam# [id number] Ordering Dr: Shon Singh MD STUDY: X-RAY - RIGHT ELBOW REASON FOR EXAM: Female, 72 years old. Right elbow pain after fall TECHNIQUE: 3 view(s) of the elbow. COMPARISON: None. FINDINGS: Nondisplaced fracture through the radial head with soft tissue swelling and joint effusion. No dislocation RAD/Elbow min 3 Views IMPRESSION: Radial head fracture Electronically Signed: Singh Pat DO at 21:19 EDT Tel , Service support , CC: Winston Torres MD; Shon Singh MD Construction Teacher: Signed CHEST PA AND LATERAL Observed: 12/09/2017 Status: F Source: [place] 8:06 PM [facility] REPOSITORY [facility] Imaging Services [address] [place] [address] Chest PA and Lateral MR#: [id number] Acct: [id number] Name: ROSEMARY SCHROEDER Rep #: [id number] : 1945 F 72 From: Singh Pat DO PCP: Winston Torres MD Status: REG ER Study: Chest PA and Lateral Date of Exam: 12/09/17 Exam# [id number] Ordering Dr: Shon Singh MD STUDY: X-RAY CHEST REASON FOR EXAM: Female, 72 years old. Status post fall TECHNIQUE: Single AP portable view of the chest. COMPARISON: None. FINDINGS: Markedly elevated right hemidiaphragm with right lower lobe scarring. Left lung is clear. There is no demonstrated pleural abnormality. Normal size heart. Normal mediastinum and jeremías. Normal visualized pulmonary arteries. Normal visualized aortic arch and descending thoracic aorta. Normal visualized thoracic spine. Normal visualized ribs, clavicles, and shoulders. There is no demonstrated abnormality of the visualized soft tissue structures of the upper abdomen. RAD/Chest PA and Lateral IMPRESSION: No acute findings Electronically Signed: Singh Pat DO at 21:19 EDT Tel , Service support , CC: Winston Torres MD; Shon Singh MD Construction Teacher: Signed A/C JTS GRADY W OR Observed: 12/09/2017 Status: F Source: [place] W/O WTS 8:06 PM [facility] REPOSITORY [facility] Imaging Services [address] [place] [address] A/C Jts Grady w or w/o Wts MR#: [id number] Acct: [id number] Name: ROSEMARY SCHROEDER Rep #: [id number] : 1945 F 72 From: Singh Pat DO PCP: Winston Torres MD Status: DEP ER Study: A/C Jts Grady w or w/o Wts Date of Exam: 12/09/17 Exam# [id number] Ordering Dr: Shon Singh MD STUDY: X-RAY - BILATERAL CLAVICLES REASON FOR EXAM: Female, 72 years old. Right AC joint pain after fall TECHNIQUE: 2 views of the right clavicle. 2 views of the left clavicle. COMPARISON: None. FINDINGS: Normal right clavicle. There is degenerative arthrosis of the right acromioclavicular joint without inferior osseous prominence. Normal right sternoclavicular articulation. Normal left clavicle. There is degenerative arthrosis of the left acromioclavicular joint without inferior osseous prominence. Normal left sternoclavicular articulation. Normal visualized bilateral pulmonary apices. RAD/A/C Jts Grady w or w/o Wts IMPRESSION: No acute findings Electronically Signed: Singh Pat DO at 21:22 EDT Tel , Service support , CC: Winston Torres MD; Shon Singh MD Construction Teacher: Signed HEMOGLOBIN A1C Collected: 09/08/2017 Status: F Source: [place] 4:56 PM [facility] REPOSITORY TYPE CODE TESTS RESULT OUT OF RANGE REFERENCE UNITS LAB L501.9985 4.2-6.3 % High HGB A1C 6.5 Performed By: #### L501.9985 #### [facility] [address] [place], [address] CBC W/DIFF, AUTOMATED Collected: 09/08/2017 Status: F Source: [place] 4:56 PM [facility] REPOSITORY TYPE CODE TESTS RESULT OUT OF RANGE REFERENCE UNITS LAB L100.1000 4.4-11.0 K/mm3 Normal WBC 8.4 LAB L100.1200 4.2-5.4 M/mm3 Low RBC 4.16 LAB L100.1300 12.0-15.0 g/dl Normal HGB 12.5 LAB L100.1400 37-47 % Normal HCT 40.0 LAB L100.1500 81-99 fL Normal MCV 96.2 LAB L100.1600 27.0-32.0 pg Normal MCH 30.0 LAB L100.1700 32-36 g/gl Low MCHC 31.3 LAB L100.1810 11.6-14.6 % Normal RDW CV 13.5 LAB L100.1820 35.1-43.9 fl High RDW SD 46.9 LAB L100.1900 150-450 K/mm3 Normal PLT 280 LAB L100.2000 6.2-12.0 fl Normal MPV 9.6 LAB L100.2100 47-70 % Normal NEUT% 57.9 LAB L100.2200 19-41 % Normal LY% 27.1 LAB L100.2300 0-10 % Normal MONO% 10.0 LAB L100.2400 0-5 % Normal EO% 4.4 LAB L100.2500 0-1 % Normal BASO% 0.5 LAB L100.2550 0.0-0.9 % Normal IM GRAN % 0.100 Result Comment: IG% - Immature Granulocytes (promyelocytes, myelocytes and metamyelocytes) > 1% indicates that a LEFT SHIFT is Present. LAB L100.2620 2.0-7.7 X10 3/uL Normal Absolute Neut 4.9 LAB L100.2720 0.83-4.51 X10 3/ul Normal Absolute Lymph 2.27 Performed By: #### L100.0100, L101.9900 #### [facility] [address] [facility] [place], [place], [address] ERYTHROCYTE SED RATE Collected: 09/08/2017 Status: F Source: [place] 4:56 PM [facility] REPOSITORY TYPE CODE TESTS RESULT OUT OF RANGE REFERENCE UNITS LAB L102.0000 0-30 mm/hr Normal SED RATE 10 Performed By: #### L100.0100, L101.9900 #### [facility] [address] [place], [place], [address] MICROALB:CREAT Collected: 09/08/2017 Status: F Source: [place]A RATIO,RANDOM UR 4:56 PM [facility] REPOSITORY TYPE CODE TESTS RESULT OUT OF RANGE REFERENCE UNITS LAB L501.1200 NO RANGE EST. mg/dL Normal UR CREAT 212.00 LAB L502.0500 NO RANGE EST. mg/L Normal 191.0 MICROALBUMIN ,UR LAB L502.0600 <30 mg/g CRE mg/g CRE High 90.1 MALB:CREAT Performed By: #### L502.0250 #### [facility] [address] [place], [address] VITAMIN B12 Collected: 09/08/2017 Status: F Source: [place] 4:56 PM [facility] REPOSITORY TYPE CODE TESTS RESULT OUT OF REFERENCE UNITS RANGE LAB L503.0105 211-911 pg/mL High Vitamin B12 1869 Performed By: #### L503.0105 #### [facility] [address] [place], [address] COMPREHENSIVE METABOLIC Collected: 09/08/2017 Status: F Source: [facility] 4:56 PM [facility] REPOSITORY TYPE CODE TESTS RESULT OUT OF RANGE REFERENCE UNITS LAB L501.0100 74-106 mg/dL High GLU 148 Result Comment: Fasting Glucose result greater than or equal to 126 mg/dL suggests DIABETES MELLITUS per A.D.A. criteria. Please note revised GLUCOSE reference range effective 2017. LAB L501.1000 7-18 mg/dL High BUN 31 LAB L501.1100 0.55-1.02 mg/dL High CREAT,SERUM 1.48 Result Comment: The validity of the calculated GFR AND GFRAA in patients over 70 years has not been determined. Clinical correlation is essential. LAB L501.1110 >60 mL/min Low EST GFR 37 Result Comment: Non- GFR Calc LAB L501.1115 >60 mL/min Low EST GFR - AA 45 Result Comment: GFR Calc LAB L501.1300 10-20 RATIO High BUN/CRE 20.9 LAB L501.1500 6.4-8.2 g/dL T Normal PROT 7.3 LAB L501.1800 3.2-5.0 g/dL Normal ALB 3.6 LAB L501.1950 2.2-4.2 g/dL Normal GLOB 3.7 LAB L501.2000 0.9-2.4 RATIO Normal A/G 1.0 LAB L501.2200 8.5-10.1 mg/dL Low CA 8.4 LAB L501.4100 15-37 U/L Normal AST 30 LAB L501.4305 45-117 U/L Normal ALK P 105 LAB L501.4405 13-56 U/L Normal ALT 37 Result Comment: Please note revised ALT reference range effective 2017. LAB L501.4600 0.20-1.00 mg/dL Normal T BILI 0.50 LAB L501.5300 136-145 mmol/L Normal NA 141 LAB L501.5600 3.5-5.1 mmol/L Low K 3.3 LAB L501.5900 98-107 mmol/L Normal CL 104 LAB L501.6100 21.0-32.0 mmol/L Normal CO2 27.0 LAB L501.6200 5-15 Normal GAP 10 Performed By: #### L500.4050, L501.9520, L503.6550 #### [facility] [address] [facility] [place], [address] THYROID STIM HORMONE Collected: 09/08/2017 Status: F Source: [place] (TSH) 4:56 PM [facility] REPOSITORY TYPE CODE TESTS RESULT OUT OF RANGE REFERENCE UNITS LAB L501.9520 0.358-3.74 uIU/mL Normal TSH 2.25 Performed By: #### L500.4050, L501.9520, L503.6550 #### [facility] [address] [place], [address] FERRITIN Collected: 09/08/2017 Status: F Source: [place] 4:56 PM [facility] REPOSITORY TYPE CODE TESTS RESULT OUT OF RANGE REFERENCE UNITS LAB L503.6550 8-252 ng/mL Normal FERRITIN 46 Performed By: #### L500.4050, L501.9520, L503.6550 #### [facility] [address] [place], [address] HEPATITIS C ANTIBODIES Collected: 09/08/2017 Status: F Source: [place] 4:56 PM [facility] REPOSITORY TYPE CODE TESTS RESULT OUT OF RANGE REFERENCE UNITS LAB L3100.0650 0.0-0.9 s/co ratio Normal HEP C AB 0.1 Result Comment: Negative: < 0.8 Indeterminate: 0.8 - 0.9 Positive: > 0.9 The CDC recommends that a positive HCV antibody result be followed up with a HCV Nucleic Acid Amplification test (953241). Performed at: [facility] [id number] Nutrition Services Worker: Myron Spence PhD, Phone: [phone] Performed By: #### L3100.0625 #### [facility] (refer to report for specific site) refer to report for address and phone number ALLERGIES ALLERGIES DATE TYPE / CODE NAME / CODE REACTION SEVERITY SOURCE 12/09/2017 Drug codeine/F006 Nausea/Vom/Diarr Unknown Maya [facility] Allergy/4160 [id number]([facility] 41927(SNOMED M) Repository CT) ENCOUNTERS ENCOUNTERS ADMIT/DISCHARGE ACCOUNT ADMITTING ENCOUNTER LOCATION SOURCE NUMBER CLASS 06/06/2018 [id number] Ambulatory Maya Maya 0 [facility] ing:OPBI Repository 04/08/2018 [id number] Ambulatory Fidelity Fidelity 1 [facility] ing:PSN Repository 04/07/2018 [id number] Ambulatory Fidelity Fidelity 5 [facility] ing:MFPLAB Repository 04/03/2018 [id number] Ambulatory Maya Fidelity 4 [facility] ing:LAB.FUTUR Repository E 02/24/2018/ [id number] Ambulatory Fidelity Fidelity 8 3 [facility] ing:OT Repository 12/18/2017 [id number] Ambulatory Maya Maya 0 [facility] ing:HPRAD Repository 12/18/2017/ [id number] Ambulatory BMSBuilding:B Maya 8 2 [facility] Repository 12/11/2017 [id number] Ambulatory Fidelity Fidelity 3 [facility] ing:MFPLAB Repository 12/09/2017/ [id number] Emergency Fidelity Maya 8 1 [facility] ing:ED Repository 09/08/2017 [id number] Ambulatory Fidelity Fidelity 9 [facility] ing:MFPLAB Repository PAYERS PAYERS ENCOUNTER GUARANTOR PAYER SUBSCRIBER SOURCE 06/06/2018 ROSEMARY Perdomo Primary ROSEMARY Trejo [id number] Insurance:MEDICARE SMITHDOB: Formerly [facility] BAYBERRY PART A [facility] [id number] Number: Repository [id number]: 330 [id number] [phone] () Date:2018-04-09 06/06/2018 Secondary ROSEMARY Perdomo Fidelity Insurance:MEDICO SMITHDOB: Formerly [facility] INSURANCE [id number] COMPANYPolicy Number: Repository [id number] Date:6081-77-96JA [address] [place] [address]WP: 06/06/2018 Tertiary NOT GIVENUNK Maya Insurance:SELF PAY [facility] Number: Effective Repository Date:2018-04-09 04/08/2018 ROSEMARY Perdomo Primary ROSEMARY Trejo [id number] Insurance:MEDICARE [facility] [id number] [place] Number: Repository [address]Obg: 330 [id number] [phone] () Date:2017-12-22 04/08/2018 Secondary ROSEMARY Perdomo Fidelity Insurance:MEDICO SMITHDOB: Community INSURANCE [id number] COMPANYPolicy Number: Repository [id number] Date:7357-02-29IO [address] [place] [address] 0660WP: 04/08/2018 Tertiary NOT GIVENUNK Fidelity Insurance:SELF PAY [facility] Number: Effective Repository Date:2017-12-22 04/07/2018 ROSEMARY Perdomo Primary ROSEMARY Perdomo Maya [id number] Insurance:MEDICARE SMITHDOB: Formerly [facility] BAYBERRY PART A [facility] [id number], [place] Number: Repository [address]Xju: 330 [id number] [phone] (HP) Date:2018-04-07 04/07/2018 Secondary ROSEMARY K Fidelity Insurance:MEDICO SMITHDOB: Community INSURANCE [id number] Hospital COMPANYPolicy Number: Repository [id number] Date:7970-81-25XG [address] [address], [place] [address] 0660WP: 04/07/2018 Tertiary NOT GIVENUNK Fidelity Insurance:SELF PAY [facility]: Effective Repository Date:2018-04-07 04/03/2018 ROSEMARY Perdomo Primary ROSEMARY Trejo [id number] Insurance:MEDICARE SMITHDOB: Community [place] PART A [id number]: Repository [id number]: 330 [id number] [phone] () Date:2018-04-03 04/03/2018 Secondary ROESMARY K Fidelity Insurance:MEDICO SMITHDOB: Community INSURANCE [id number] Hospital COMPANYPolicy Number: Repository [id number] Date:3367-66-97VY [address] [place] [address] 0660WP: 04/03/2018 Tertiary NOT GIVENUNK Maya Insurance:SELF PAY [facility] Number: Effective Repository Date:2018-04-03 02/24/2018 Rosemary Perdomo Primary Rosemary Perdomo Maya [id number] Insurance:MEDICARE SmithDOB: Community [place] PART A [facility] [id number] Number: Repository [id number]: 330 [id number] [phone] (HP) Date:2009-09-21 02/24/2018 Secondary Rosemary Leanne Fidelity Insurance:MEDICO SmithDOB: Community INSURANCE [id number] Hospital COMPANYPolicy Number: Repository [id number] Date:9962-29-07DE [address] [place] [address] 0660WP: 02/24/2018 Tertiary NOT GIVENUNK Fidelity Insurance:SELF PAY [facility] Number: Effective Repository Date:2017-12-23 12/18/2017 Rosemary Perdomo Primary Rosemary Perdomo Maya [id number] Insurance:MEDICARE SmithDOB: Community [place] PART A [facility] [id number] Number: Repository [address]Gid: 330 [id number] [phone] (HP) Date:2017-12-18 12/18/2017 Secondary Rosemary K Maya Insurance:MEDICO SmithDOB: Community INSURANCE [id number] Hospital COMPANYPolicy Number: Repository [id number] Date:6086-14-97[address] [address], [place] [address] 0660WP: 12/18/2017 Tertiary NOT GIVENUNK Fidelity Insurance:SELF PAY [facility] Number: Effective Repository Date:2017-12-18 12/18/2017 Rosemary K Primary Rosemary K Maya [id number] Insurance:MEDICARE SmithDOB: [facility] PART A [facility] [id number] Number: Repository [address]Xov: 330 [id number] [phone] (HP) Date:2017-12-11 12/18/2017 Secondary Rosemary K Maya Insurance:MEDICO SmithDOB: Community INSURANCE [id number] Hospital COMPANYPolicy Number: Repository [id number] Date:2163-08-53KH [address] [address] [address] 0660WP: 12/18/2017 Tertiary NOT GIVENUNK Maya Insurance:SELF PAY [facility] Number: Effective Repository Date:2017-12-18 12/11/2017 Rosemary K Primary Rosemary K Maya [id number] Insurance:MEDICARE SmithDOB[facility] [id number] Number: Repository [address]Jar: 330 [id number] [phone] (HP) Date:2017-12-11 12/11/2017 Secondary Rosemary K Maya Insurance:MEDICO SmithDOB: Community INSURANCE [id number] Hospital COMPANYPolicy Number: Repository [id number] Date:8872-65-12FS [address] [address]S[place]HWABRA[place]AM [place]AS [address] 0660WP: 12/11/2017 Tertiary NOT GIVENUNK Maya Insurance:SELF PAY [facility] Number: Effective Repository Date:2017-12-11 12/09/2017 Rosemary Perdomo Primary Rosemary Trejo [id number] Insurance:MEDICARE SmithDOB: Community [place] PART A [facility] [id number] [place] Number[facility] Repository [address]Dhp: 330 [id number] [phone] (HP) Date:2017-12-09 12/09/2017 Secondary Rosemary K Maya Insurance:MEDICO SmithDOB: Community INSURANCE [id number] Hospital COMPANYPolicy Number: Repository [id number] Date:1168-56-80JA [address] [address] 0660WP: 12/09/2017 Tertiary NOT GIVENUNK Maya Insurance:SELF PAY [facility] Number: Effective Repository Date:2017-12-09 09/08/2017 Rosemary Perdomo Primary Rosemary Trejo [id number] Insurance:MEDICARE SmithDOB: [facility] PART A [facility] [id number] [place] Number: Repository [address]Jqm: 330 [id number] [phone] () Date:2017-09-08 09/08/2017 Secondary Rosemary K Maya Insurance:MEDICO SmithDOB: Community INSURANCE [id number] Hospital COMPANYPolicy Number: Repository [id number] Date:3795-15-76[address] [address] 0660WP: 09/08/2017 Tertiary NOT GIVENUNK Maya Insurance:SELF PAY [facility] Number: Effective Repository Date:2017-09-08
== END ==
PROVIDERS: Family Provider Family Medicine; PCP Family Medicine; Visit Provider Family Medicine
DX: Z12.31 Encounter for screening mammogram for malignant neoplasm of breast (principal)
CPT/HCPCS: 77063; 77067

== ENCOUNTER 2018-11-10 05:47 | Day surgery (SDC) | payer MEDICARE, OTHER, SELFPAY ==
[2018-10-14 12:48] VITALS: BMI 40.9
[2018-11-10] VITALS (7 sets, daily range): BP systolic 131–179; BP diastolic 60–75; PULSE 57–61; RESP 16–18; TEMP 36.3–37.2; O2SAT 94–98; BMI 41.6
[2018-11-10 06:30] LABS: Bedside Glucose 169 mg/dL (70-110)
[2018-11-10] MEDS: Cefazolin 2 GM in 0.9% Normal Saline 100 ML IV (07:26)
[2018-11-10] MEDS: Bupiv/Epi 0.5% Mpf 30 ML Vial (07:40)
--- NOTE | 2018-11-10 07:56 | PCM.DC.ORTHO ---
Additional Activity Instructions:: Ice and elevate operative extremity next 72 hours. Keep dressing on clean and dry for 48 hours then may remove and allow warm soapy water to rinse over incision but do not submerge until sutures are out. Then apply bandaid over incision and change daily. encourage finger range of motion. Not lift more than 1/2 pound. Allergies/Adverse Reactions: Allergies tetracycline Allergy (Verified 11/03/18 14:18) Vomiting codeine Adverse Reaction (Verified 11/03/18 14:18) Nausea/Vom/Diarrhea Medications to take at Discharge atenolol 50 mg tablet 50 mg PO QDAY 12/18/17 diclofenac sodium 75 mg tablet,delayed release 75 mg PO BID 12/18/17 glimepiride 2 mg tablet 2 mg PO QAM 12/18/17 hydrochlorothiazide 12.5 mg capsule 12.5 mg PO QAM 12/18/17 levothyroxine 50 mcg capsule 50 mcg PO QDAY 12/18/17 multivitamin tablet 1 tab PO QAM 12/18/17 pantoprazole 20 mg tablet,delayed release 20 mg PO QDAY 12/18/17 venlafaxine ER 75 mg capsule,extended release 24 hr 75 mg PO QDAY 12/18/17 vitamins A,C,M-frxj-yblpdz 14,320 unit-226 mg-200 unit capsule 1 cap PO BID 12/18/17 diclofenac 1 % topical gel 2 g TOPICAL .QID #100 g 10/14/18 Acetaminophen [Tylenol Arthritis] 650 mg PO PRN PRN 11/03/18 Hydrocodone Bitart/Apap 5-325 [[place] 5MG-325MG] 1 - 2 tablet PO Q4H PRN PRN 5 Days #20 tablet 11/10/18 The following prescriptions were given: Hydrocodone Bitart/Apap 5-325 [[place] 5MG-325MG] 1 - 2 tablet PO Q4H PRN PRN 5 Days #20 tablet PRN Reason: Pain Primary Care Physician: Winston Torres MD [Primary Care Provider] - Test Results: Test results from this visit will be discussed in further detail at your follow-up appointment, if applicable. Please Follow Up With: Scott Jones DO - 2 weeks Proposed Discharge Date: 11/10/18
--- NOTE | 2018-11-10 07:58 | PCM.OPRPT ---
Report of Operation Date of Procedure: 11/10/18 Description of Surgical Findings:: Preoperative diagnosis; left carpal tunnel syndrome Postoperative diagnosis; same Procedure: Left open carpal tunnel release Anesthesia: Local with MAC Tourniquet time; 10 minutes 250 mm Hg Complications: None Indication for procedure; This is a 73-year-old female with long-standing symptoms consistent with carpal tunnel syndrome the patient did have electrodiagnostic evidence of this and has failed conservative treatment. Risks benefits and alternatives were reviewed including risks of bleeding infection nerve artery tissue damage need for further surgery and continued pain and symptoms, hypersensitivity to scar and Pillar pain. Procedure; The patient was met in the preoperative holding area the operative extremity was identified by both patient and physician and was marked the patient was met by anesthesia and brought back to the operating room and transferred to the operating table in the supine position. Aanesthesia was started. A well-padded tourniquet was placed on the operative upper extremity. The patient was prepped and draped in the usual sterile fashion. A timeout was called to ensure the proper patient procedure and extremity were being contemplated. 0.5 percent Marcaine with epinephrine was injected into the incisional area. An Esmarch was used to exsanguinate the extremity. The tourniquet was inflated to 250 mmHg. A midline incision was made with a 15 blade scalpel between the thenar and hypothenar eminence. This was carried down through the skin and subcutaneous tissue. Poornima retractors were then used, a deep blade scalpel was used to make a deep incision in the palmar aponeurosis. The poornima retractors were then placed deep to this and the transverse carpal ligament was identified a perforation was made with a scalpel and a Littler scissors were used to complete the release of the transverse carpal ligament distally under direct visualization with the tips facing ulnarly until the perivascular fat was reached. Then turning our attention proximally using a tension slide technique the proximal extent of the transverse carpal ligament was released . There was noted to be hourglass configuration to the median nerve and hypertrophy of the transverse carpal ligament without other findings. The wound was thoroughly irrigated and was closed with 4-0 prolene vertical mattress stitches. Dressing was applied in the form of xeroform 4 x 4, web roll and an chase wrap. Tourniquet was let down there is no intraoperative complications patient tolerated the procedure well and was transferred to the PACU. All counts were correct.
== END 2018-11-10 09:10 | disposition home or self-care (01) ==
LOC: SDC 05:48 → AC 05:50
PROVIDERS: Family Provider Family Medicine; PCP Family Medicine; Referring Provider Orthopaedic Surgery; Visit Provider Orthopaedic Surgery
PROC: (CPT 64721; principal; 2018-11-10 07:15)
DX: G56.02 Carpal tunnel syndrome, left upper limb (principal); Z79.899 Other long term (current) drug therapy; Z79.84 Long term (current) use of oral hypoglycemic drugs; E11.9 Type 2 diabetes mellitus without complications; I10 Essential (primary) hypertension; M19.042 Primary osteoarthritis, left hand; E07.9 Disorder of thyroid, unspecified; E78.00 Pure hypercholesterolemia, unspecified
CPT/HCPCS: 01810; 64721; 82962; J7120

== ENCOUNTER → 2019-05-03 11:37 | Outpatient (CLI) | payer MEDICARE, OTHER, SELFPAY ==
[2018-11-10 06:20] VITALS: BMI 41.6
[2019-05-03 14:35] LABS: Absolute Lymphocyte Count 2.17 X10^3/uL (0.83-4.51); Absolute Neutrophil Count 3.9 X10^3/uL (2.0-7.7); Basophil# 0.06 X10^3/uL; Basophil% 0.8 % (0-1); Eosinophil# 0.38 X10^3/uL; Eosinophils% 5.4 % (0-5); Hematocrit 42.9 % (37-47); Hemoglobin 13.4 g/dL (12.0-15.0); Lymphocyte # 2.17 X10^3/ul (4.0); Lymphocyte % 30.6 % (19-41); Mean Corp Hgb Conc 31.2 g/dL (32-36); Mean Corpuscular Hgb 30.1 pg (27.0-32.0); Mean Corpuscular Volume 96.4 fL (81-99); Mean Platelet Vol. 9.7 fl (6.2-12.0); Monocyte# 0.52 X10^3/uL; Monocyte% 7.3 % (0-10); NRBC Flagged by Analyzer 0 % (0-5); Neutrophil # 3.94 X10^3/uL (2.7-7.7); Neutrophil % 55.5 % (47-70); Platelet Count 271 K/mm3 (150-450); RBC Distribution Width CV 12.9 % (11.6-14.6); Red Blood Count 4.45 M/mm3 (4.2-5.4); White Blood Count 7.1 K/mm3 (4.4-11.0)
== END ==
PROVIDERS: Family Provider Family Medicine; PCP Family Medicine; Referring Provider Family Medicine; Visit Provider Family Medicine
DX: K62.5 Hemorrhage of anus and rectum (principal)
CPT/HCPCS: 36415; 85025

== ENCOUNTER → 2019-06-21 12:58 | Outpatient (CLI) | payer MEDICARE, OTHER, SELFPAY ==
[2018-11-10 06:20] VITALS: BMI 41.6
--- NOTE | 2019-06-21 13:01 | BI_ITS ---
MAMMOGRAPHY - BILATERAL SCREENING 3-D TOMOSYNTHESIS REASON FOR EXAM: Female, 73 years old. FAM HX MAT GMA AGE 59 -- LT EXC BX 1990, LT SKIN LESION BX IN THE OFFICE 2007 -- PT C/O OCCASIONAL LT PAIN AT BX SITE -- SEVERAL BILAT KERATOSIS MARKED PERTINENT HISTORY: No significant family history. TECHNIQUE: 2-D mammograms and 3-D Tomosynthesis of the breast (s) were performed. CAD was performed. COMPARISON: June 06, 2018. FINDINGS: The breast composition is almost entirely fat. Scattered benign calcifications are seen. No dense spiculated masses or suspicious microcalcifications are identified. No architectural distortion is identified. There is no skin thickening or retraction. There are scattered typically benign-appearing calcifications bilaterally. There has been no significant change since the prior study. BI/SCREEN MAMM (CAD) W/MELINDA BILAT IMPRESSION: No mammographic signs of malignancy. Routine yearly mammograms recommended. ASSESSMENT CATEGORY: BIRADS Category 2: Benign. A letter regarding these results will be sent to the patient by the facility within 30 days. FOLLOW UP RECOMMENDATION: Yearly follow up mammogram recommended. (A) Approximately 10% of breast cancers are not detected by mammography. A normal mammogram should not delay biopsy of a clinically suspicious abnormality. Electronically Signed: Sim Pulido MD at 14:19 EST , Service support ,
== END ==
PROVIDERS: Family Provider Family Medicine; PCP Family Medicine; Referring Provider Family Medicine; Visit Provider Family Medicine
DX: Z12.31 Encounter for screening mammogram for malignant neoplasm of breast (principal)
CPT/HCPCS: 77063; 77067

== ENCOUNTER → 2019-09-24 11:56 | Outpatient (CLI) | payer MEDICARE, OTHER, SELFPAY ==
[2018-11-10 06:20] VITALS: BMI 41.6
[2019-09-24 15:45] LABS: AST(SGOT) 42 U/L (15-37); Alanine Aminotransfer ALT/SGPT 51 U/L (13-56); Albumin, Serum 3.6 g/dL (3.2-5.0); Alkaline Phosphatase 100 U/L (45-117); Anion Gap 9 (5-15); BUN 22 mg/dL (7-18); BUN/Creat Ratio 23.4 RATIO (10-20); Chloride 105 mmol/L (98-107); Cholesterol 132 mg/dL (200); Creatinine, Serum 0.94 mg/dL (0.55-1.02); EST Glomerular Filtration Rate 62 mL/min (>60); Est Glom Filt Rate - Afr Amer 75 mL/min (>60); Globulin 3.5 g/dL (2.2-4.2); Glucose 151 mg/dL (74-106); High Density Lipoprotein 40 mg/dL; Potassium 3.7 mmol/L (3.5-5.1); Protein, Total 7.1 g/dL (6.4-8.2); Sodium Level 140 mmol/L (136-145); Thyroid Stim Hormone (TSH) 1.57 uIU/mL (0.358-3.74); Triglycerides 202 mg/dL; Very Low Density Lipoprotein 40 mg/dL (5-40)
[2019-09-24 16:15] LABS: Microalbumin,Random Urine 76.8 mg/L (NO RANGE EST.)
[2019-09-24 17:41] LABS: Hemoglobin A1c 6.4 % (4.2-6.3)
== END ==
PROVIDERS: PCP Family Medicine; Referring Provider Family Medicine; Visit Provider Family Medicine
DX: E11.9 Type 2 diabetes mellitus without complications (principal); E03.9 Hypothyroidism, unspecified
CPT/HCPCS: 36415; 80053; 80061; 82043; 82570; 83036; 84443; 85018

== ENCOUNTER → 2020-03-22 11:07 | Outpatient (CLI) | payer MEDICARE, OTHER, SELFPAY ==
[2018-11-10 06:20] VITALS: BMI 41.6
[2020-03-22 13:16] LABS: AST(SGOT) 32 U/L (15-37); Alanine Aminotransfer ALT/SGPT 37 U/L (13-56); Albumin, Serum 3.7 g/dL (3.2-5.0); Alkaline Phosphatase 95 U/L (45-117); Anion Gap 6 (5-15); BUN 21 mg/dL (7-18); BUN/Creat Ratio 20.2 RATIO (10-20); Calcium,Total 9.2 mg/dL (8.5-10.1); Chloride 103 mmol/L (98-107); Creatinine, Serum 1.04 mg/dL (0.55-1.02); EST Glomerular Filtration Rate 55 mL/min (>60); Est Glom Filt Rate - Afr Amer 66 mL/min (>60); Globulin 3.6 g/dL (2.2-4.2); Glucose 159 mg/dL (74-106); Potassium 3.2 mmol/L (3.5-5.1); Protein, Total 7.3 g/dL (6.4-8.2); Sodium Level 141 mmol/L (136-145); Thyroid Stim Hormone (TSH) 2.27 uIU/mL (0.358-3.74)
== END ==
PROVIDERS: PCP Family Medicine; Referring Provider Family Medicine; Visit Provider Family Medicine
DX: I10 Essential (primary) hypertension (principal); E03.9 Hypothyroidism, unspecified
CPT/HCPCS: 36415; 80053; 84443

== ENCOUNTER → 2020-07-04 15:27 | Outpatient (CLI) | payer MEDICARE, OTHER, SELFPAY ==
[2018-11-10 06:20] VITALS: BMI 41.6
--- NOTE | 2020-07-04 15:30 | BI_ITS ---
MAMMOGRAPHY - BILATERAL SCREENING REASON FOR EXAM: Female, 74 years old. Routine annual screening examination. PERTINENT HISTORY: Grandmother with breast cancer. Remote left excisional breast biopsy. TECHNIQUE: Digital bilateral breast melinda (3D mammographic acquisition) in the CC and MLO projections. 2-D mediolateral oblique (MLO) and craniocaudad (CC) views of both breasts were obtained. CAD: Full Field Digital Mammography with Computer Added Detection was performed. COMPARISON: Comparison is made with prior study dated 06/21/2019 and 06/06/2018. FINDINGS: Breast Composition: The breasts are almost entirely fatty. There are no dominant masses or suspicious calcifications. No other significant abnormalities are identified. There has been no significant change since the prior study. BI/SCREEN MAMM (CAD) W/MELINDA BILAT IMPRESSION: Stable bilateral screening mammogram. Yearly follow-up mammogram recommended. (A) ASSESSMENT CATEGORY: BIRADS Category 1: Negative. A letter regarding these results will be sent to the patient by the facility within 30 days. Approximately 10% of breast cancers are not detected by mammography. A normal mammogram should not delay biopsy of a clinically suspicious abnormality. [id number] Electronically Signed: Osmany Etienne, at 8:21 EST , Service support ,
== END ==
PROVIDERS: PCP Family Medicine; Referring Provider Family Medicine; Visit Provider Family Medicine
DX: Z12.31 Encounter for screening mammogram for malignant neoplasm of breast (principal); Z80.3 Family history of malignant neoplasm of breast
CPT/HCPCS: 77063; 77067

== ENCOUNTER → 2020-10-19 11:41 | Outpatient (CLI) | payer MEDICARE, OTHER, SELFPAY ==
[2018-11-10 06:20] VITALS: BMI 41.6
[2020-10-19 15:35] LABS: Hemoglobin A1c 6.3 % (3.8-5.6)
[2020-10-19 15:46] LABS: ALB/GLOB Ratio 1.1 RATIO (0.9-2.4); AST(SGOT) 33 U/L (15-37); Alanine Aminotransfer ALT/SGPT 39 U/L (13-56); Albumin, Serum 3.6 g/dL (3.2-5.0); Alkaline Phosphatase 89 U/L (45-117); Anion Gap 6 (5-15); BUN 25 mg/dL (7-18); BUN/Creat Ratio 22.7 RATIO (10-20); Chloride 101 mmol/L (98-107); Cholesterol 156 mg/dL (200); EST Glomerular Filtration Rate 51 mL/min (>60); Est Glom Filt Rate - Afr Amer 62 mL/min (>60); Globulin 3.4 g/dL (2.2-4.2); Glucose 148 mg/dL (74-106); High Density Lipoprotein 45 mg/dL; Potassium 3.5 mmol/L (3.5-5.1); Sodium Level 138 mmol/L (136-145); Thyroid Stim Hormone (TSH) 4.07 uIU/mL (0.358-3.74); Triglycerides 253 mg/dL; Very Low Density Lipoprotein 51 mg/dL (5-40)
[2020-10-19 18:05] LABS: Microalbumin,Random Urine 30.1 mg/L (NO RANGE EST.); Microalbumin:Creatinine Ratio 24.9 mg/g CRE (<30 mg/g CRE)
== END ==
PROVIDERS: PCP Family Medicine; Referring Provider Family Medicine; Visit Provider Family Medicine
DX: E11.9 Type 2 diabetes mellitus without complications (principal); E03.9 Hypothyroidism, unspecified
CPT/HCPCS: 36415; 80053; 80061; 82043; 82570; 83036; 84443

== ENCOUNTER → 2020-11-08 09:57 | Outpatient (CLI) | payer MEDICARE, OTHER, SELFPAY ==
[2018-11-10 06:20] VITALS: BMI 41.6
--- NOTE | 2020-11-08 10:02 | BD_ITS ---
STUDY: DUAL ENERGY X-RAY ABSORPTIOMETRY / DXA REASON FOR EXAM: Female, 75 years old. Z78.0 TECHNIQUE: Bone Mineral Density (BMD) measurements of lumbar spine and bilateral hips were obtained. COMPARISON: 12/15/2007 FINDINGS: Lumbar Spine (L1-L4): g/cm2 (1.418) / T-score (2.1) / Z-score (3.9) Findings are suggestive of normal bone density with a low fracture risk. Left Femur Total: g/cm2 (0.946) / T-score (-0.5) / Z-score (1.3) Left Femoral Neck: g/cm2 (1.039) / T-score (0.0) / Z-score (2.0) Right Femur Total: g/cm2 (0.958) / T-score (-0.4) / Z-score (1.4) Right Femoral Neck: g/cm2 (0.940) / T-score (-0.7) / Z-score (1.3) BD/Dexa Bone Density Study IMPRESSION: The patient is considered normal as outlined below according to World Wilfred Organization (WHO) criteria with a low fracture risk. There has been worsening of bone density since the previous examination. Reference Information: The T-score is the number of standard deviations above or below the standard which is normal for young adults at their peak bone mineral density. The World Health Organization (WHO) interprets the T-scores as follows: Above -1 Normal bone density Between -1 and -2.5 Osteopenia Equal to / or below -2.5 Osteoporosis As a practical clinical guideline, osteopenia may be graded as follows: Mild -1 through -1.5 Moderate -1.6 through -2.0 Severe -2.1 through -2.4 The Z-score is the number of standard deviations above or below age-matched controls. A Z-score of less than -1.5 would be considered abnormal. References: 1. NIH Osteoporosis and Related Bone Diseases www osteo.org 2. International Society for Clinical Densitometry www iscd.org 3. National Osteoporosis Foundation www nof.org Electronically Signed: Brodie Best MD at 8:40 EDT Tel , Service support ,
== END ==
PROVIDERS: PCP Family Medicine; Referring Provider Family Medicine; Visit Provider Family Medicine
DX: Z78.0 Asymptomatic menopausal state (principal)
CPT/HCPCS: 77080

== ENCOUNTER → 2021-01-16 13:52 | Outpatient (CLI) | payer MEDICARE, OTHER, SELFPAY ==
[2018-11-10 06:20] VITALS: BMI 41.6
[2021-01-16 15:52] LABS: Free T3 1.6 pg/mL (2.18-3.98); T4 Free Direct 0.95 ng/dL (0.76-1.46); Thyroid Stim Hormone (TSH) 1.75 uIU/mL (0.358-3.74)
== END ==
PROVIDERS: PCP Family Medicine; Referring Provider Family Medicine; Visit Provider Family Medicine
DX: E03.9 Hypothyroidism, unspecified (principal)
CPT/HCPCS: 36415; 84439; 84443; 84481

== ENCOUNTER → 2021-01-26 14:28 | Outpatient (CLI) | payer MEDICARE, OTHER, SELFPAY ==
[2018-11-10 06:20] VITALS: BMI 41.6
[2021-01-26 17:41] LABS: Absolute Lymphocyte Count 2.49 X10^3/uL (0.83-4.51); Absolute Neutrophil Count 4.8 X10^3/uL (2.0-7.7); Basophil# 0.06 X10^3/uL; Basophil% 0.7 % (0-1); Eosinophil# 0.52 X10^3/uL; Eosinophils% 6.1 % (0-5); Hematocrit 43.7 % (37-47); Hemoglobin 13.8 g/dL (12.0-15.0); Lymphocyte # 2.49 X10^3/ul (0.83-4.51); Mean Corp Hgb Conc 31.6 g/dL (32-36); Mean Corpuscular Hgb 30.3 pg (27.0-32.0); Mean Platelet Vol. 9.6 fl (6.2-12.0); Monocyte# 0.74 X10^3/uL; Monocyte% 8.6 % (0-10); NRBC Flagged by Analyzer 0 % (0-5); Neutrophil # 4.75 X10^3/uL (2.7-7.7); Neutrophil % 55.4 % (47-70); Platelet Count 341 K/mm3 (150-450); RBC Distribution Width CV 12.7 % (11.6-14.6); RBC Distribution Width SD 44.8 fl (35.1-43.9); Red Blood Count 4.55 M/mm3 (4.2-5.4); White Blood Count 8.6 K/mm3 (4.4-11.0)
[2021-01-26 17:53] LABS: AST(SGOT) 35 U/L (15-37); Alanine Aminotransfer ALT/SGPT 42 U/L (13-56); Albumin, Serum 3.8 g/dL (3.2-5.0); Alkaline Phosphatase 89 U/L (45-117); Anion Gap 7 (5-15); BUN 23 mg/dL (7-18); BUN/Creat Ratio 23.3 RATIO (10-20); Calcium,Total 9.5 mg/dL (8.5-10.1); Chloride 102 mmol/L (98-107); Creatinine, Serum 0.99 mg/dL (0.55-1.02); EST Glomerular Filtration Rate 58 mL/min (>60); Est Glom Filt Rate - Afr Amer 70 mL/min (>60); Globulin 3.9 g/dL (2.2-4.2); Glucose 132 mg/dL (74-106); Potassium 3.6 mmol/L (3.5-5.1); Protein, Total 7.7 g/dL (6.4-8.2); Sodium Level 140 mmol/L (136-145)
[2021-01-26 17:58] LABS: BNP,B-Type NATRIURETIC PEPTIDE 22.4 pg/mL (0-100)
== END ==
PROVIDERS: PCP Family Medicine; Visit Provider Family Medicine
DX: R06.02 Shortness of breath (principal)
CPT/HCPCS: 36415; 80053; 83880; 85025

== ENCOUNTER → 2021-02-27 10:46 | Outpatient (CLI) | payer MEDICARE, OTHER, SELFPAY ==
--- NOTE | 2021-02-27 10:51 | STEWCON_ITS ---
Reason For Study: SOB/Chest Pain Stress Results Protocol: Dobutamine Stress Echo With Definity Maximum Predicted HR: 144 bpm Target HR: 122 bpm % Maximum Predicted HR: 87 % DurationHeart Rate Stage (mm:ss) (bpm) BP Comment Baseline 70 161/58No Chest Pain; 7 ML Diluted Definity Given DSE 10 MCG 4:51 77 141/67No Chest Pain DSE 20 MCG 3:00 85 130/50No Chest Pain DSE 30 MCG 3:00 111 139/56Atropine 0.25 MG IVP at 2:42 Min Into Stage DSE 40 MCG 1:54 125 139/57No Chest Pain; Mild Dyspnea Recovery 94 149/57Mild Chest Pressure; Resolved Prior to End of Test Stress Duration: 12:45 mm:ss Maximum Stress HR: 125 bpm Baseline Echocardiogram Findings Stress Echo Wall motion Data Resting WM Intermediate WM Stress WM Resting Wall Motion Wall Motion Int. Wall Motion Stress All segments Normal. All segments Hyperkinetic. All segments Hyperkinetic. Ejection Fraction 65 %. Ejection Fraction 75 %. Ejection Fraction 85 %. Stress Results Heart rate: Target heart rate achieved Arrhythmias: Isolated PAC during recovery. EKG Data Baseline ECG: Sinus rhythm. Peak infusion ECG: Somatic artifact with beat to beat nonspecific ST segment variability. Symptoms with Stress No report of chest discomfort thought compatible with angina pectoris during infusion/recovery. ECHO/Stress Test Echo W/Contrast Interpretation Summary Contrast injection performed Negative (adequate) dobutamine stress echocardiogram Ordering Physician: Winston Jonas Referring Physician: Jhony Abarca M.D. Performed By: Isai Franco RCS
== END ==
PROVIDERS: PCP Family Medicine; Referring Provider Family Medicine; Visit Provider Family Medicine
DX: R06.02 Shortness of breath (principal)
CPT/HCPCS: 93017; 93350; J7040; Q9957; A4216; C8928; J3490

== ENCOUNTER → 2021-06-07 14:25 | Outpatient (CLI) | payer MEDICARE, OTHER, SELFPAY ==
[2021-06-07 17:52] LABS: Hemoglobin A1c 6.3 % (3.8-5.6)
[2021-06-07 17:58] LABS: Thyroid Stim Hormone (TSH) 1.16 uIU/mL (0.358-3.74)
== END ==
PROVIDERS: PCP Nurse Practitioner Family; Referring Provider Nurse Practitioner Family; Visit Provider Nurse Practitioner Family
DX: E11.9 Type 2 diabetes mellitus without complications (principal); E03.9 Hypothyroidism, unspecified
CPT/HCPCS: 36415; 83036; 84443

== ENCOUNTER 2021-08-02 14:47 | Outpatient (CLI) | payer MEDICARE, OTHER, SELFPAY ==
--- NOTE | 2021-08-02 14:49 | BI_ITS ---
MAMMOGRAPHY - BILATERAL SCREENING REASON FOR EXAM: Female, 75 years old. Routine annual screening examination. PERTINENT HISTORY: Grandmother with breast cancer. Remote left excisional breast biopsy. TECHNIQUE: Digital bilateral breast melinda (3D mammographic acquisition) in the CC and MLO projections. 2-D mediolateral oblique (MLO) and craniocaudad (CC) views of both breasts were obtained. CAD: Full Field Digital Mammography with Computer Added Detection was performed. COMPARISON: Comparison is made with prior study dated 07/04/2020 and 06/21/2019. FINDINGS: Breast Composition: The breasts are almost entirely fatty. There are no dominant masses or suspicious calcifications. No other significant abnormalities are identified. There has been no significant change since the prior study. BI/SCRN MAMM (CAD)W/MELINDA BILAT IMPRESSION: Stable bilateral screening mammogram. Yearly follow-up mammogram recommended. (A) ASSESSMENT CATEGORY: BIRADS Category 1: Negative. A letter regarding these results will be sent to the patient by the facility within 30 days. Approximately 10% of breast cancers are not detected by mammography. A normal mammogram should not delay biopsy of a clinically suspicious abnormality. [id number] Electronically Signed: Osmany Etienne MD at 9:00 EST ,
== END 2021-08-02 23:59 | disposition home or self-care (01) ==
LOC: OPBI 14:48
PROVIDERS: PCP Nurse Practitioner Family; Referring Provider Family Medicine; Visit Provider Family Medicine
DX: Z12.31 Encounter for screening mammogram for malignant neoplasm of breast (principal)
CPT/HCPCS: 77063; 77067

== ENCOUNTER → 2021-11-28 | Outpatient (CLI) | payer MEDICARE, OTHER, SELFPAY ==
[2021-11-28 12:09] LABS: Erythrocyte Sedimentation Rate 10 mm/hr (0-30)
[2021-11-28 12:10] LABS: Hematocrit 41.8 % (37-47); Hemoglobin 13.3 g/dL (12.0-15.0); Mean Corp Hgb Conc 31.8 g/dL (32-36); Mean Corpuscular Hgb 30.6 pg (27.0-32.0); Mean Corpuscular Volume 96.3 fL (81-99); Mean Platelet Vol. 9.4 fl (6.2-12.0); Platelet Count 317 K/mm3 (150-450); RBC Distribution Width CV 12.5 % (11.6-14.6); RBC Distribution Width SD 44.5 fl (35.1-43.9); Red Blood Count 4.34 M/mm3 (4.2-5.4); White Blood Count 9.5 K/mm3 (4.4-11.0)
[2021-11-28 13:02] LABS: Vitamin D,25 Hydroxy 34.7 ng/mL
[2021-11-28 13:12] LABS: AST(SGOT) 26 U/L (15-37); Alanine Aminotransfer ALT/SGPT 31 U/L (13-56); Albumin, Serum 3.6 g/dL (3.2-5.0); Alkaline Phosphatase 83 U/L (45-117); Anion Gap 7 (5-15); BUN 29 mg/dL (7-18); BUN/Creat Ratio 25.2 RATIO (10-20); Calcium,Total 9.4 mg/dL (8.5-10.1); Chloride 103 mmol/L (98-107); Creatinine, Serum 1.15 mg/dL (0.55-1.02); EST Glomerular Filtration Rate 49 mL/min (>60); Est Glom Filt Rate - Afr Amer 59 mL/min (>60); Globulin 3.5 g/dL (2.2-4.2); Glucose 145 mg/dL (74-106); Potassium 3.4 mmol/L (3.5-5.1); Protein, Total 7.1 g/dL (6.4-8.2); Sodium Level 140 mmol/L (136-145); Thyroid Stim Hormone (TSH) 2.42 uIU/mL (0.358-3.74)
[2021-11-29 16:08] LABS: Endomysial Antibody IgA Negative (Negative)
[2021-11-30 17:27] LABS: Deamidated Gliadin IgA 3 units (0-19); Deamidated Gliadin IgG 2 units (0-19); Immunoglobulin A 191 mg/dL (64-422); t-Transglutaminase IgA <2 U/mL (0-3)
[2021-12-05 11:08] LABS: Beef <0.10 kU/L (Class 0); Corn <0.10 kU/L (Class 0); Egg, Whole 0.16 kU/L (Class 0/I); Milk (Cow) 0.11 kU/L (Class 0/I); Peanut <0.10 kU/L (Class 0); Pork <0.10 kU/L (Class 0); Soybean <0.10 kU/L (Class 0); Wheat <0.10 kU/L (Class 0)
[2021-12-05 18:02] LABS: Chocolate <0.10 kU/L (Class 0)
== END | disposition home or self-care (01) ==
LOC: MFPLAB 11:13
PROVIDERS: PCP Family Medicine; Referring Provider Family Medicine; Visit Provider Family Medicine
DX: K58.9 Irritable bowel syndrome, unspecified (principal); E03.9 Hypothyroidism, unspecified; M54.50 Low back pain, unspecified
CPT/HCPCS: 36415; 80053; 82306; 82784; 83516; 84443; 85027; 85652; 86003; 86005; 86255

== ENCOUNTER → 2022-04-01 | Outpatient (CLI) | payer MEDICARE, OTHER, SELFPAY ==
--- NOTE | 2022-04-01 14:01 | RAD_ITS ---
Exam: XR Neck Soft Tissue Comparison: History: CERVICALGIA Frontal and lateral views. There is mild-moderate disc space narrowing at C3-4 and C4-5. Unremarkable epiglottis. No prevertebral soft tissue swelling or gas. Apparent low right lung volume or elevated right hemidiaphragm but appearance is similar to frontal view of the cervical spine December 18, 2017. RAD/Neck for Soft Tissue IMPRESSION: No evidence of significant soft tissue swelling or other acute abnormality. Degenerative cervical spine changes. Electronically Signed: Mendy Gardner MD at 8:04 EDT ,
== END | disposition home or self-care (01) ==
LOC: MTRAD 14:00
PROVIDERS: PCP Family Medicine; Referring Provider Family Medicine; Visit Provider Family Medicine
DX: M54.2 Cervicalgia (principal)
CPT/HCPCS: 70360

== ENCOUNTER → 2022-07-02 | Outpatient (CLI) | payer MEDICARE, OTHER, SELFPAY ==
[2022-07-02 16:16] LABS: Anion Gap 7 (5-15); BUN 28 mg/dL (7-18); BUN/Creat Ratio 26.7 RATIO (10-20); Calcium,Total 9.6 mg/dL (8.5-10.1); Chloride 102 mmol/L (98-107); Creatinine, Serum 1.05 mg/dL (0.55-1.02); EST Glomerular Filtration Rate 54 mL/min (>60); Est Glom Filt Rate - Afr Amer 65 mL/min (>60); Glucose 129 mg/dL (74-106); Potassium 3.7 mmol/L (3.5-5.1); Sodium Level 142 mmol/L (136-145)
== END | disposition home or self-care (01) ==
LOC: MFPLAB 14:14
PROVIDERS: PCP Family Medicine; Visit Provider Family Medicine
DX: E11.9 Type 2 diabetes mellitus without complications (principal)
CPT/HCPCS: 36415; 80048

== ENCOUNTER → 2022-08-20 | Outpatient (CLI) | payer MEDICARE, OTHER, SELFPAY ==
--- NOTE | 2022-08-20 12:50 | BI_ITS ---
MAMMOGRAPHY - BILATERAL SCREENING REASON FOR EXAM: Female, 76 years old. Routine annual screening examination. PERTINENT HISTORY: Grandmother with breast cancer. Remote right excisional breast biopsy. TECHNIQUE: Digital bilateral breast melinda (3D mammographic acquisition) in the CC and MLO projections. 2-D mediolateral oblique (MLO) and craniocaudad (CC) views of both breasts were obtained. CAD: Full Field Digital Mammography with Computer Added Detection was performed. COMPARISON: Comparison is made with prior study dated 08/02/2021 and 07/04/2020. FINDINGS: Breast Composition: The breasts are almost entirely fatty. There are no dominant masses or suspicious calcifications. No other significant abnormalities are identified. There has been no significant change since the prior study. BI/SCRN MAMM (CAD)W/MELINDA BILAT IMPRESSION: Stable bilateral screening mammogram. Yearly follow-up mammogram recommended. (A) ASSESSMENT CATEGORY: BIRADS Category 1: Negative. A letter regarding these results will be sent to the patient by the facility within 30 days. Approximately 10% of breast cancers are not detected by mammography. A normal mammogram should not delay biopsy of a clinically suspicious abnormality. [id number] Electronically Signed: Osmany Etienne MD at 14:53 EST ,
== END | disposition home or self-care (01) ==
LOC: OPBI 12:46
PROVIDERS: PCP Family Medicine; Referring Provider Family Medicine; Visit Provider Family Medicine
DX: Z12.31 Encounter for screening mammogram for malignant neoplasm of breast (principal)
CPT/HCPCS: 77063; 77067

== ENCOUNTER → 2023-02-06 | Outpatient (CLI) | payer MEDICARE, OTHER, SELFPAY ==
[2023-02-06 16:17] LABS: AST(SGOT) 27 U/L (15-37); Alanine Aminotransfer ALT/SGPT 38 U/L (13-56); Albumin, Serum 3.5 g/dL (3.2-5.0); Alkaline Phosphatase 98 U/L (45-117); Anion Gap 6 (5-15); BUN 31 mg/dL (7-18); BUN/Creat Ratio 30.1 RATIO (10-20); Calcium,Total 9.4 mg/dL (8.5-10.1); Chloride 105 mmol/L (98-107); Cholesterol 141 mg/dL (200); Creatinine, Serum 1.03 mg/dL (0.55-1.02); EST Glomerular Filtration Rate 55 mL/min (>60); Est Glom Filt Rate - Afr Amer 67 mL/min (>60); Globulin 3.4 g/dL (2.2-4.2); Glucose 129 mg/dL (74-106); High Density Lipoprotein 42 mg/dL; Potassium 3.7 mmol/L (3.5-5.1); Protein, Total 6.9 g/dL (6.4-8.2); Sodium Level 141 mmol/L (136-145); Thyroid Stim Hormone (TSH) 2.71 uIU/mL (0.358-3.74); Triglycerides 242 mg/dL; Very Low Density Lipoprotein 48 mg/dL (5-40)
== END | disposition home or self-care (01) ==
LOC: MFPLAB 13:47
PROVIDERS: PCP Family Medicine; Visit Provider Family Medicine
DX: E11.69 Type 2 diabetes mellitus with other specified complication (principal)
CPT/HCPCS: 36415; 80053; 80061; 84443

== ENCOUNTER → 2023-05-01 | Outpatient (CLI) | payer MEDICARE, OTHER, SELFPAY ==
--- NOTE | 2023-05-01 15:06 | RAD_ITS ---
STUDY: X-RAY - LUMBOSACRAL SPINE REASON FOR EXAM: Female, 77 years old. Pain. TECHNIQUE: 6 view(s) of the lumbosacral spine, including lateral flexion and extension views, were obtained. COMPARISON: None FINDINGS: Osteopenia. Reversal of the normal lordotic curve, likely positional. Mild levoscoliosis. 3 mm of anterolisthesis of L4 on L3 and 4 mm of anterolisthesis of L5 on S1. Marked diffuse lower thoracic and lumbosacral facet sclerosis. Limited flexion and extension with no abnormal motion. Diffuse moderate intervertebral disc space narrowing most marked at L2-3, L3-4 and L4-5 with moderate-sized osteophytes at these levels. Cholecystectomy clips and vascular calcification. RAD/L/S Spine w Bend Min 6 Vw IMPRESSION: Osteopenia with limited flexion and extension and no abnormal motion. Diffuse moderate lower thoracic and lumbosacral spondylosis. Electronically Signed: Glen Victoria MD at 15:55 EST ,
--- NOTE | 2023-05-01 15:06 | RAD_ITS ---
STUDY: X-RAY - LEFT KNEE REASON FOR EXAM: Female, 77 years old. Pain. TECHNIQUE: 4 view(s) of the knee. COMPARISON: None. FINDINGS: Osteopenia. Large superior patellar spur. Medial subluxation of the distal femur in relation to the proximal tibia. 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 Suprapatellar joint effusion. Normal soft tissues. 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 Electronically Signed: Glen Victoria MD at 10:00 EST ,
== END | disposition home or self-care (01) ==
LOC: MTRAD 15:04
PROVIDERS: PCP Family Medicine; Referring Provider Family Medicine; Visit Provider Family Medicine
DX: M51.36 Other intervertebral disc degeneration, lumbar region (principal)
CPT/HCPCS: 72114; 73564

== ENCOUNTER 2023-06-26 10:00 | Outpatient (RCR) | payer MEDICARE, OTHER, SELFPAY ==
--- NOTE | 2023-05-28 16:11 | HP.PTEVAL ---
Patient's Visit Information Visit Information Visit Information: JUSTINE REES is a 77 year old F referred to Physical Therapy by Dr. Nadeem Gregorio MD with a diagnosis of R shoulder pain. Date of Evaluation: 05/28/23 Physical Therapist: John Wasserman, PT, ATC Visit Plan Frequency: 2x /Week Duration: 1 Week Plan: Issue and educate pt on HEP of rotator cuff and scap stab ex's. Subjective Subjective: Pt reports she almost fell 2 weeks ago while putting her dog in the car. Pt notes she was able to grab onto the car to keep her from actually hitting the ground. Pt notes there was no pain immediately after this event occurred, but reports she was achy the next day and was very for within 3 days after the event. Pt reports No Dx [id number] at this time. Pt reports occasional tingling and numbness in her L fingers if she is sitting for a period of time. Pt notes she is R hand dominant. Pt denies PMHx of R shoulder trauma at this time. Pt reports She is leaving for [place] in 2 weeks and hopes to have a little decrease in pain prior to her departure. Pt reports she is limited with all IADL's at this time as she is unable to lift her R UE over her head. Pt reports her R shoulder pain ranges from 6-7/10 Pain R shoulder pain: Pain Intensity (Out of 10): 6 Pain Intensity Range: 7 Objective Objective: Neuro: B UE sensation is WNL to light touch. B bicipital reflex= 2/3 Palpation: Minor tenderness with palpation to supraspinatus tendon. Sig pain on LHB tendon ROM: L shoulder flex= 140, abd= 130, ER= 40, IR= WNL; R shoulder flex= 50, abd= 55, ER= 30, IR= WNL MMT: L shoulder flex= 12, abd= 16, ER= 16, IR= 17 #F; R shoulder flex= 0, abd= 3, ER= 5, IR= 14 #F Special testing: pos empty can and speeds Balance/Special Test Scores Quick DASH Score: 77.2725 Goals Goal 1:: I with HEP in 3 visits Goal Time Frame: 1 Week Rehabilitation Potential Physical Therapy Diagnosis: Pt has R shoulder pain and weakness secondary to R shoulder biceps and supraspinatus strain Rehabilitation Potential: Good Anticipated Interventions Patient/Client Instruction: Educate patient on: Condition and Plan of Care For the Purpose of:: To improve self management Therapeutic Exercise to Include: Strength training, Endurance training, Flexibilty training, Active ROM and Scapular Strength/Stabilization For the Purpose of:: To decrease pain, To increase ROM and To improve muscle performance and motor function Cryotherapy (ice pack, ice massage): Yes For the Purpose of:: To decrease pain Text: Thank you for the opportunity to evaluate your patient. For Medicare and Medicare HMO plans, please review the plan of care and approve it. It will need to be FAXED BACK to us at [phone] for Medicare purposes. For Medicare only, by signing this I certify the plan of care. Please let me know if there are questions or concerns regarding this plan of care. Physician Signature: Date:
--- NOTE | 2023-06-26 10:34 | HP.PTREVAL ---
Re-Evaluation Intro: Dr. Nadeem Gregorio MD, It has been my pleasure to treat JUSTINE REES over the last 4 visits for R shoulder pain. Please see the progress note below for an update on the physical therapy plan of care! Subjective Subjective: I am feeling much better. I still have a hard time with getting dressed Objective Objective/Function: R shoulder pain ranges from 2-5/10. Pt still has difficulty with putting on her coat. R shoulder ROM: flex= 155, abd= 135, ER= 10 degrees R shoulder MMT: flex= 6, abd= 15, ER= 4, IR= 14 #F Pt is I with HEP Plan Plan Plan: Recheck or discharge in one month. Pt to continue with HEP until that point Balance/Gait/Functional tests Balance/Special Test Scores Quick DASH Score: 29.5450 Goals Goals Goal 1:: I with HEP in 3 visits Goal Time Frame: 1 Week Goal Progress: Goal Met Anticipated Interventions Anticipated Interventions Patient/Client Instruction: Educate patient on: Condition and Plan of Care For the Purpose of:: To improve self management Therapeutic Exercise to Include: Strength training, Endurance training, Flexibilty training, Active ROM and Scapular Strength/Stabilization For the Purpose of:: To decrease pain, To increase ROM and To improve muscle performance and motor function Cryotherapy (ice pack, ice massage): Yes For the Purpose of:: To decrease pain Re-Evaluation Ending Re-evaluation ending: Please do not hesitate to contact me at [phone] by phone or if you have questions or concerns regarding this new plan of care! Sincerely, John Wasserman, PT, ATC
--- NOTE | 2023-07-24 11:06 | HP.PTDCSUM ---
Discharge Summary D/C summary: It has been my pleasure to treat JUSTINE REES referred by Dr. Nadeem Gregorio MD, with the diagnosis of R shoulder pain for a total of 5 visit(s). Discharge Date: Please see the following information for a summary of their discharge status. Subjective Subjective: I am sore today, I must have slept wrong on it. I am better overall Pain R shoulder pain: Pain Intensity (Out of 10): 4 Overall Improvement % Improvement: 85 Objective Objective/Function: R shoulder pain ranges from 4-7/10 R shoulder ROM: flex= 155, abd= 140, ER= 0 degrees R shoulder MMT: flex= 9, abd= 14, ER= 4, IR= 16 #F Pt is I with HEP Goals Goal 1:: I with HEP in 3 visits Goal Progress: Goal Met Plan Plan: Discharge to HEP D/C Information d/c sentence: If there are questions or concerns regarding this patient's physical therapy, please feel free to call me at [phone]. Thank you for the referral of this patient. Sincerely, John Wasserman, PT, ATC Balance/Gait/Functional tests Balance/Special Test Scores Quick DASH Score: 27.2725 Improvement % Improvement: 85
== END 2023-06-26 19:00 | disposition home or self-care (01) ==
LOC: PT 10:00
PROVIDERS: PCP Family Medicine; Referring Provider Family Medicine; Visit Provider Family Medicine
DX: M25.511 Pain in right shoulder (principal)
CPT/HCPCS: 97110; 97161; 97164

== ENCOUNTER → 2023-07-28 | Outpatient (CLI) | payer MEDICARE, OTHER, SELFPAY ==
--- OUTSIDE RECORDS SUMMARY | 2023-07-28 17:24 | XMS RPT_ITS | CCD ---
Author Name Unknown Address [address] [place] [address] Organization [facility] Care Team Providers Care Coil Strapper Name Role Phone Marycarmen Gregorio MD Primary Care Provider MARYCARMEN GREGORIO Primary Care MYLES Hough Referring Unavailable AILYN STOCKTON Attending Unavailable MARYCARMEN GREGORIO Primary Care MYLES Hough Attending Unavailable AILYN STOCKTON Referring Unavailable MARYCARMEN GREGORIO Referring MARYCARMEN Rodriguez Primary Care AILYN Cordero Attending Unavailable Marycarmen Gregorio MD Primary Care Provider Allergies Allergy Classification Reported Allergen(s) Allergy Type Date of Onset Reaction(s) Facility (4 sources) Codeine; Translations: [CODEINE] Drug Allergy 12-16-[address] [facility] Work Phone: (4 sources) traMADol; Translations: [TRAMADOL] Drug Allergy 08-23-[address] [facility] Medications Completed/Discontinued Medications Medication Drug Class(es) Dates Sig (Normalized) Sig (Original) acetaminophen 500 mg oral tablet (3 sources) Start: 12-16-2007 ACETAMINOPHEN 500 MG TAB Take one(1) tablet every four(4) to six(6) hours as needed for pain. 0 12/16/2007 Active Problems Problem Classification Problem Date Documented Da te Episodic/Chronic Abdominal pain (3 sources) Epigastric pain; Translations: [Epigastric pain] Onset: 3 Episodic Diverticulosis and diverticulitis (2 sources) Diverticular disease; Translations: [Diverticulosis of intestine, part unspecified, without perforation or abscess without bleeding] Onset: 3 Chronic Esophageal disorders (2 sources) Gastroesophageal reflux disease; Translations: [Gastro-esophageal reflux disease without esophagitis] Chronic Esophageal disorders (1 source) Esophageal disorders; Translations: [Gastroesophageal reflux disease with esophagitis without hemorrhage] Onset: 3 Hemorrhoids (2 sources) Hemorrhoids; Translations: [Unspecified hemorrhoids] Onset: 3 Episodic Other aftercare (1 source) Drug therapy finding; Translations: [Other intermediate frame tender (current) drug therapy] Episodic Other aftercare (3 sources) Other skilled nursing (current) drug therapy; Translations: [Long-term (current) use of other medications] Onset: 3 09-19-2022 Episodic Other and unspecified benign neoplasm (3 sources) History of polyp of colon; Translations: [Personal history of colonic polyps] Episodic Other and unspecified benign neoplasm (1 source) Personal history of colonic polyps; Translations: [History of colonic polyps] Onset: 3 Episodic Other gastrointestinal disorders (2 sources) History of gastritis; Translations: [Personal history of other diseases of the digestive system] Episodic Other gastrointestinal disorders (1 source) Personal history of other diseases of the digestive system; Translations: [History of gastritis] Onset: 3 Episodic Other screening for suspected conditions (not mental disorders or infectious disease) (3 sources) Patient encounter status; Translations: [Encounter for screening for malignant neoplasm of colon] Onset: 3 Episodic Results Test Name Value Interpretation Reference Range Facil ity Vital Signs Date Time Vital Sign Value Performing Clinician Rudy rios 10-01-2022 14:38-0400 Body temperature 97.39 [degF] Ailyn STONEParadine Work Phone: [facility] 10-01-2022 14:38-0400 Diastolic blood pressure 76 mm[Hg] Ailyn STONE-C Work Phone: [facility] 10-01-2022 14:38-0400 Heart rate 91 /min Ailyn STONE-DealPerk Work Phone: [facility] 10-01-2022 14:38-0400 SaO2% (BldA) [Mass fraction] 96 % Ailyn STONE-C Work Phone: [facility] 10-01-2022 14:38-0400 Systolic blood pressure 143 mm[Hg] Ailyn Catahoula PA-C Work Phone: [facility] 09-19-2022 13:10-0400 Diastolic blood pressure 60 mm[Hg] Myles Burnham MD Work Phone: [facility] 09-19-2022 13:10-0400 Heart rate 62 /min Myles Burnham MD Work Phone: [facility] 09-19-2022 13:10-0400 Respiratory rate 16 /min Myles Burnham MD Work Phone: [facility] 09-19-2022 13:10-0400 SaO2% (BldA) [Mass fraction] 95 % Myles Burnham MD Work Phone: [facility] 09-19-2022 13:10-0400 Systolic blood pressure 141 mm[Hg] Myles Burnham MD Work Phone: [facility] 09-19-2022 11:11-0400 Body temperature 97.81 [degF] Myles Burnham MD Work Phone: [facility] 08-23-2022 08:33-0500 Body height 157.5 cm Ailyn Mahin PA-C Work Phone: [facility] 08-23-2022 08:33-0500 Body temperature 97.59 [degF] Ailyn Mahin PA-C Work Phone: [facility] 08-23-2022 08:33-0500 Body weight 91.99 kg Ailyn Catahoula PA-C Work Phone: [facility] 08-23-2022 08:33-0500 Diastolic blood pressure 88 mm[Hg] Ailyn Mahin PA-C Work Phone: [facility] 08-23-2022 08:33-0500 Heart rate 89 /min Ailyn Mahin PA-C Work Phone: [facility] 08-23-2022 08:33-0500 SaO2% (BldA) [Mass fraction] 97 % Ailyn Catahoula PA-C Work Phone: [facility] 08-23-2022 08:33-0500 Systolic blood pressure 136 mm[Hg] Ailyn Stockton PA-C Work Phone: [facility] Encounters Encounter Date Encounter Type Care Provider Facility Start: 10-01-2022 End: 10-02-2022 ambulatory MARYCARMEN GREGORIO Facility:[facility] Start: 10-01-2022 End: 10-01-2022 Patient encounter procedure Ailyn Stockton PA-C Work Phone: General Surgery Procedures Date Procedure Procedure Detail Performing Clinician Start: 09-19-2022 Level iv surg pathology gross&microscopic exam Myles Burnham MD Work Phone: Start: 09-19-2022 Esophagogastroduodenoscopy transoral diagnostic Ailyn Stockton PA-C Work Phone: Start: 09-19-2022 Colonoscopy flx dx w/collj spec when pfrmd Ailyn Stockton PA-C Work Phone: Start: 09-19-2022 Colonoscopy Ailyn Stockton PA-C Work Phone: Plan of Treatment Date Care Activity Detail Author Start: 09-20-2027 Colonoscopy [address] [facility] Start: 09-20-2027 COLORECTAL CANCER SCREENING COLORECTAL CANCER SCREENING [facility] Start: 02-21-2023 Covid-19 Vaccine ( season) Covid-19 Vaccine ( season) [facility] Start: 02-21-2023 Influenza vaccination Influenza Vacc ine (#1) [facility] Start: 06-23-2022 ADVANCE DIRECTIVE DISCUSSION ADVANCE DIRECTIVE DISCUSSION [facility] Start: 06-23-2022 DEPRESSION ASSESSMENT DEPRESSION ASS ESSMENT [facility] Start: 01-02-2022 COVID-19 VACCINE (5 - Booster for Pfizer series) COVID-19 VACCINE (5 - Booster for Pfizer series) [facility] Start: 2009 BONE DENSITY BONE DENSITY [facility] Start: 2009 Bone Density Screening Bone Density Screening [facility] Start: 2009 PNEUMOCOCCAL: 65+ (1 - PCV) PNEUMOCOCCAL: 65+ (1 - PCV) [facility] Start: 2004 RSV Vaccine (1 - 1-d ose 60+ series) RSV Vaccine (1 - 1-dose 60+ series) [facility] Start: 1994 SHINGRIX VACCINE (1 of 2) SHINGRIX V ACCINE (1 of 2) [facility] Start: 1989 COLOGUARD (FIT-DNA) COLOGUARD (FIT-D NA) [facility] Start: [address] COLONOGRAPHY [facility] Start: 1989 DIABETES SCREEN DIABETES SCREEN [facility] Start: 1989 Diabetes Screening Diabetes Screenin g [facility] Start: 1989 FECAL OCCULT BLOOD FECAL OCCULT BLOO D [facility] Start: 1989 SIGMOIDOSCOPY SIGMOIDOSCOPY [facility] Start: 09-28-1963 Urine microalbumin profile [facility] Start: 1962 HEPATITIS C SCREENING HEPATITIS C SC LUIS M [facility] Immunizations Immunization Date Immunization Notes Care Provider Fa cility 03-22-2022 influenza virus vacc ine, unspecified formulation Myles Burnham MD Work Phone: [facility] Payers Date Payer Category Payer Medicare [id number] 2021 Unknown MMO MMO MEDICARE SUPPLEMENT [id number] 2021-Present [phone] [address] [place] [address] Indemnity [id number] 2009 Medicare MEDICARE MEDICAR E A AND B [id number] 2009-Present [phone] [address] [address] [place] [address] Medicare [id number] 2009 Medicare [id number] Social History Date Type Detail Facility Start: 08-23-2022 Tobacco smoking stat us ALIS Never smoked tobacco [facility] Start: 08-23-2022 Tobacco use and exposure Smoke less tobacco non-user [facility] Start: 08-23-2022 End: 09-19-2022 Alcohol intake Current non-drinker of alcohol (finding) [facility] Start: 1945 Sex Assigned At Not on file C [facility] Start: 08-23-2022 End: 09-19-2022 History of Social function [facility] Start: 08-23-2022 End: 09-19-2022 Tobacco use panel [facility] National Score (1-10 0), lower number is lower risk [address] [facility] Clinical Notes 08-23-2022 to 10-01-2022 Patient InstructionsAilyn Stockton PA-C - 10/01/2022 2:42 PM Priyanka Lam RN - 09/19/2022 1:23 PM Priyanka Lam RN - 09/19/2022 1:13 PM EDT Note Date & Type Note Facility 10-01-2022 Note HNO ID: [id number] Author: Ailyn Stockton PA-C Service: ? Author Type: Physician Customer Service Professional Type: Progress Notes Filed: 10/01/2022 4:43 PM Note Text: FOLLOW UP VISIT - ENDOSCOPY NAME: Rosemary Schroeder [facility] NO.: [id number] DATE OF SERVICE: 10/01/2022 : 1945 REFERRING PHYSICIAN: Marycarmen Gregorio MD Rosemary is a patient I am following for stomach pain, history of gastritis and personal history of colon polyps. Dr. Burnham performed upper and lower endoscopy on 09/11/22. The patient was found to have gastritis and normal examined duodenum on EGD. Colonoscopy showed diverticulosis and hemorrhoids, otherwise normal colon. Pathology demonstrated: FINAL DIAGNOSIS A. Duodenum, biopsy: - Duodenal mucosa with no significant diagnostic alteration. - No evidence of celiac disease or duodenitis. B. Gastric antrum, biopsy: - Antral mucosa with no significant diagnostic alteration. - No morphologic evidence of Helicobacter pylori organisms. C. Distal esophagus, biopsy: - Mildly inflamed cardiofundic-type mucosa, negative for intestinal metaplasia. - Reactive squamous mucosa with no significant inflammation. D. Mid esophagus, biopsy: - Squamous mucosa with no significant diagnostic alteration. - No evidence of esophagitis or eosinophilia. Patient notes she did have a bad day yesterday noting multiple loose BMs. States prior to yesterday had been doing well since procedure. Notes no concerns today. Denies fever or chills. VITALS: Blood pressure 143/76, pulse 91, temperature 36.3 ?C (97.4 ?F), SpO2 96 %. General: patient is alert, cooperative, pleasant and in no acute distress On examination, the abdomen is benign. Assessment IMPRESSION: gastritis, long-term PPI use, history of colon polyps PLAN: The operative findings and pathology report were reviewed with the patient, and the patient has had the opportunity to ask questions and have questions answered. If the patient notes any problems or changes in bowel function, the patient should contact me immediately. Otherwise I recommend follow up EGD in 3 years and colonoscopy in 5 years for surveillance. HM updated and recall letter generated. Fiber supplement Dietary and lifestyle modifications as discussed Patient verbalized understanding of all above and agreed with the plan Diagnoses: (Z87.19) History of gastritis (primary encounter diagnosis) (Z86.010) History of colonic polyps (K57.90) Diverticulosis (K64.9) Hemorrhoids, unspecified hemorrhoid type I spent a total of 24 minutes on the date of the service which included preparing to see the patient, [id number] patient care, completing clinical documentation, obtaining and/or reviewing separately obtained history, counseling and educating the patient/family/caregiver, independently interpreting results (not separately reported), and communicating results to the patient/family/caregiver. Ailyn Stockton PA-C [facility] 10-01-2022 Instructions Ailyn Stockton PA-C - 10/01/2022 3:14 PM EDT -Recommend bland diet (bananas, rice, applesauce, toast, broth soups) the next few days d/t recent loose stools -Recommend daily fiber supplement such as Citrucel, Benefiber, Metamucil etc to help regulate bowels long-tern -Limit caffeine, alcohol, spicy foods, sharp cheeses, salads etc until stomach feeling improved -Avoid eating or drinking after 7 pm -Repeat EGD in 3 years (due to long-term PPI use) The following instructions are important for you related to your office visit today with the [facility] General Surgeons. INSTRUCTIONS FOLLOWING A NORMAL COLONOSCOPY I discussed with you the findings of your colonoscopy. Since there were no worrisome abnormalities, I recommend you undergo repeat endoscopic screening in 5 years due to your previous history of polyps. If you note bleeding, change in bowel habits, or other suspicious colon related symptoms before that time, those symptoms should be evaluated as necessary. INSTRUCTIONS FOR PEPTIC ULCER DISEASE/GASTRITIS I discussed with you the findings of your upper endoscopy. Your upper endoscopy demonstrated signs of peptic ulcer disease or irritation. This can be seen as a range of issues from actual ulcers in the stomach or duodenum (first part of the small bowel) or irritation ranging from redness to more significant irritation with erosions of the stomach or duodenum. These conditions are usually caused from a combination of too much acid production or too little protective mucus production in the stomach. Factors that increase acid production include smoking and stress. If you smoke, stopping smoking will often cure these issues without needing other medications. Factors that decrease the stomach's production of protective mucus include alcohol consumption, smoking, aspirin and other anti-inflammatory use. Over the counter medications including antiacids and acid reducing medications including H2 blockers (Zantac and the like) and proton pump inhibitors (prilosec, prevacid and the like) neutralize or prevent acid production. Prescription strength proton pump inhibitors (PPIs) may be necessary if your symptoms persist. Carafate may be added to PPI treatment in refractory cases. Avoiding smoking, alcohol and antiinflammatory medications are important in the successful treatment of peptic diseases. New or worsening symptoms such are epigastric pain, burning, difficulty swallowing or food sticking should be relayed to your physician. Feeling full early after eating, or black, tarry, foul smelling stools are also worrisome. If you have any difficulties or concerns, you should contact our office immediately. If you note any additional difficulties, questions, or concerns, you should contact our office immediately @ [phone] and ask to be transferred to the General Surgery department. documented in this encounter [facility] 10-01-2022 History of Present illness Narrative FOLLOW UP VISIT - ENDOSCOPY NAME: Rosemary Schroeder [facility] NO.: [id number] DATE OF SERVICE: 10/01/2022 : 1945 REFERRING PHYSICIAN: Marycarmen Gregorio MD Rosemary is a patient I am following for stomach pain, history of gastritis and personal history of colon polyps. Dr. Burnham performed upper and lower endoscopy on 09/11/22. The patient was found to have gastritis and normal examined duodenum on EGD. Colonoscopy showed diverticulosis and hemorrhoids, otherwise normal colon. Pathology demonstrated: FINAL DIAGNOSIS A. Duodenum, biopsy: - Duodenal mucosa with no significant diagnostic alteration. - No evidence of celiac disease or duodenitis. B. Gastric antrum, biopsy: - Antral mucosa with no significant diagnostic alteration. - No morphologic evidence of Helicobacter pylori organisms. C. Distal esophagus, biopsy: - Mildly inflamed cardiofundic-type mucosa, negative for intestinal metaplasia. - Reactive squamous mucosa with no significant inflammation. D. Mid esophagus, biopsy: - Squamous mucosa with no significant diagnostic alteration. - No evidence of esophagitis or eosinophilia. Patient notes she did have a bad day yesterday noting multiple loose BMs. States prior to yesterday had been doing well since procedure. Notes no concerns today. Denies fever or chills. VITALS: Blood pressure 143/76, pulse 91, temperature 36.3 C (97.4 F), SpO2 96 %. General: patient is alert, cooperative, pleasant and in no acute distress On examination, the abdomen is benign. Assessment IMPRESSION: gastritis, long-term PPI use, history of colon polyps PLAN: The operative findings and pathology report were reviewed with the patient, and the patient has had the opportunity to ask questions and have questions answered. If the patient notes any problems or changes in bowel function, the patient should contact me immediately. Otherwise I recommend follow up EGD in 3 years and colonoscopy in 5 years for surveillance. updated and recall letter generated. Fiber supplement Dietary and lifestyle modifications as discussed Patient verbalized understanding of all above and agreed with the plan Diagnoses: (Z87.19) History of gastritis (primary encounter diagnosis) (Z86.010) History of colonic polyps (K57.90) Diverticulosis (K64.9) Hemorrhoids, unspecified hemorrhoid type I spent a total of 24 minutes on the date of the service which included preparing to see the patient, [id number] patient care, completing clinical documentation, obtaining and/or reviewing separately obtained history, counseling and educating the patient/family/caregiver, independently interpreting results (not separately reported), and communicating results to the patient/family/caregiver. Ailyn Stockton PA-C documented in this encounter [facility] 09-19-2022 Nurse Note Patient states that pain is resolved to 3/10 in abdomen and is able to eat and drink what has been provided. Patient states she is ready for discharge. Patient's abdomen appears to be nondistended and soft to palpation. Patient stated pain has decreased to 6/10 in abdomen. Patient in bathroom and is able to pass gas and belch. Patient arrived laying on left side. Patient states that she is having 7/10 sharp intermittent pain. Patient encouraged to pass gas and belch. Patient's abdomen appears to be slightly distended but soft to palpation. Priyanka Marie RN documented in this encounter [facility] 09-19-2022 History and physical note Images from the original note were not included. HISTORY AND PHYSICAL Rosemary Schroeder 1945 REFERRING PHYSICIAN: Marycarmen Gregorio, * CHIEF COMPLAINT: Consult (EGD/) HPI: The patient is a 76 year old female referred for endoscopy. Rosemary notes stomach pain 30-45 minutes after eating, regardless of food type. Notes acid reflux and gas. Has had some loose stools and notes a history of colon polyps. Rosemary has undergone prior endoscopy. Last EGD was 09/10/[address] Burnham under conscious sedation with findings of some gastritis. Dr. Burnham had recommended repeat EGD in 3 years for surveillance. Last colonoscopy was 09/10/16. No concerning findings at that time, however has prior history of a sessile serrated polyp in 2013. Patient denies chest pain, shortness of breath or recent hospitalizations. Denies problems with sedation in the past. PAST MEDICAL HISTORY PAST MEDICAL HISTORY Diagnosis Date Diabetes (HCC) HTN (hypertension) Hyperlipidemia PAST SURGICAL HISTORY PAST SURGICAL HISTORY Procedure Laterality Date ARTHRP KNE CONDYLE&PLATU MEDIAL&LAT COMPARTMENTS Right 2007 Dr. Cornelius COLONOSCOPY FLX DX W/COLLJ SPEC WHEN PFRMD 08/06/13 Colonoscopy COLONOSCOPY FLX DX W/COLLJ SPEC WHEN PFRMD 09/10/2016 repeat 10 years ESOPHAGOGASTRODUODENOSCOPY TRANSORAL DIAGNOSTIC 08/06/13 EGD ESOPHAGOGASTRODUODENOSCOPY TRANSORAL DIAGNOSTIC 09/10/2016 repeat 3 yrs PAST SURGICAL HISTORY OF appendectomy PAST SURGICAL HISTORY OF Hysterectomy PAST SURGICAL HISTORY OF Breast biopsy PAST SURGICAL HISTORY OF carpel tunnel PAST SURGICAL HISTORY OF gallbladder PAST SURGICAL HISTORY OF Moles removed from back PAST SURGICAL HISTORY OF 2007 Left breast lesion removal- Dr. Burnham PAST SURGICAL HISTORY OF Bilateral 2016 Cataract removal- Dr. Mcclellan, [facility] CURRENT MEDICATIONS Current Outpatient Medications Medication Sig atenolol (TENORMIN) 50 mg tablet Take 25 mg by mouth once daily. pantoprazole DR (PROTONIX) 40 mg tablet Take 40 mg by mouth once daily. glimepiride (AMARYL) 2 mg tablet Take 2 mg by mouth daily with breakfast. BIOFLAV,LEMON/VIT BCOMP,C (LIPO-FLAVONOID PLUS ORAL) Take by mouth. diclofenac, EC, 75 mg EC tablet Take 75 mg by mouth twice daily. venlafaxine XR 75 mg tr24 Take by mouth once daily. HYDROCHLOROTHIAZIDE ORAL Take 25 mg by mouth. VIT C/VANCE AC/LUT/COPPER/ZNOX (PRESERVISION LUTEIN ORAL) Take by mouth. ERGOCALCIFEROL, VITAMIN D2, (VITAMIN D ORAL) Take 1,000 Units by mouth. cyanocobalamin (VITAMIN B-12) 500 mcg tablet Take by mouth once daily. simvastatin(ZOCOR 20 MG TAB) Take one(1) tablet daily at bedtime. ACETAMINOPHEN 500 MG TAB Take one(1) tablet every four(4) to six(6) hours as needed for pain. multivitamins(DAILY MULTI-VITAMIN TAB) UBIDECARENONE (COQ-10 ORAL) Take by mouth. (Patient not taking: Reported on 08/23/2022) No current facility-administered medications for this visit. ALLERGIES: Codeine and Tramadol PERSONAL HISTORY: SOCIAL HISTORY Social History Tobacco Use Smoking status: Never Smokeless tobacco: Never Vaping Use Vaping Use: Never used Substance Use Topics Alcohol use: No Drug use: No FAMILY HISTORY: FAMILY HISTORY FAMILY HISTORY Problem Relation Age of Onset Alcohol/Drug Father Allergies Brother Hypertension Mother Hypertension Father Hypertension Brother Breast Cancer Maternal Grandmother Diabetes Mother Diabetes Brother Prostate Cancer Father Prostate Cancer Brother Stroke Mother Stroke Maternal Grandfather REVIEW OF SYMPTOMS: The review of systems data was entered by the nurse and reviewed by me Nursing Notes: Tammy Ty LPN 08/23/2022 8:40 AM Signed REVIEW OF SYSTEMS: General: The patient NOTES fatigue, denies weight loss, NOTES weight gain, denies feeling hot, and denies feelings of cold. Eyes: The patient denies glaucoma, NOTES eye injury/surgery, wears glasses or contacts. Ear/Nose/Throat: The patient NOTES allergies, NOTES hayfever, NOTES ear infections, and denies bloody noses. Cardiovascular: The patient denies chest pain, denies heart disease, NOTES high blood pressure,denies cardiac stent, denies prior heart attack, denies irregular heart beat, NOTES high cholesterol, denies poor circulation, denies heart failure, other cardiac issues, denies claudication, denies cold feet, denies peripheral arterial stent. Respiratory: The patient denies tuberculosis, denies pneumonia, NOTES frequent cough, denies pulmonary embolism, denies shortness of breath, and denies coughing up blood. Gastrointestinal: The patient denies difficulty swallowing, NOTES acid reflux, denies ulcers, denies vomiting, denies jaundice/hepatitis, NOTES gallbladder problems, denies black or tarry stools, NOTES hemorrhoids, denies bleeding from rectum, denies diverticulitis, denies constipation, denies diarrhea, denies loss of stool control, and denies hernias. Kidney/Bladder: The patient denies kidney stones, denies urine infections, and denies bloody urine. Skin: The patient denies a history of skin cancer, denies bleeding/changing moles, and denies a history of skin rash. Neurologic: The patient denies a history of epilepsy/convulsions, denies headaches, denies head/spinal injuries, and denies stroke/TIA. Psychiatric: The patient denies psychiatric medications, denies depression, and denies voices, denies substance abuse. Endocrine: The patient denies thyroid disorders, NOTES diabetes, and denies hormonal problems. Hematologic: The patient denies a history of bruising, denies bleeding, and denies anemia, denies blood clots. Infections: The patient NOTES a history of measles and mumps, denies rheumatic fever, and denies sexually transmitted diseases. Musculoskeletal: The patient denies back pain/injury, NOTES back problems, NOTES sciatica, denies knee/foot trouble, denies arthritis, or denies gout. When was patient's last Mammogram screening? 2022 Last Colonoscopy: 2015 Tammy Ty LPN I have confirmed and edited as necessary, the PFSH and ROS obtained by others. Ailyn Stockton PA-C PHYSICAL EXAMINATION: General: The patient is 76 year old female, well nourished, well hydrated in no acute distress. The patient is oriented to time, place, and person. VITALS: Blood pressure 136/88, pulse 89, temperature 36.4 C (97.6 F), height 157.5 cm (5' 2 ), weight 92 kg (202 lb 12.8 oz), SpO2 97 %. Body mass index is 37.09 kg/m . HEENT: Normal cephalic, ataumatic, pupils are equally round, sclera are anicteric, mucous membranes are moist, oropharynx is clear. Neck has no masses, asymmetry or lymphadenopathy. Respiratory: Clear to auscultation and percussion. Normal respiratory excursion and pattern. Cardiac: Examination is regular rate and rhythm. Normal S1/S2 Abdominal exam: Soft, nontender, with no palpable masses. No hepatosplenomegaly. No palpable hernias. Extremities: no clubbing, cyanosis or edema. No adenopathy. LABORATORY VALUES: As Noted RADIOLOGIC STUDIES: As Noted Assessment IMPRESSION: upper abdominal discomfort, history of gastritis, history of colon polyps PLAN: I have reviewed my findings with the surgeon. Will plan for upper and lower endoscopy. We discussed the risks and benefits of the planned endoscopy. I have informed the patient that complications can occur including failure to complete the endoscopy and perforation. The patient had the opportunity to ask questions concerning the planned endoscopy. My staff has also explained the procedure to the patient in understandable terms and has given the patient printed material concerning the procedure. The patient freely consents to surgery. The patient was offered a surgery/procedure at a [facility] facility. I have counseled the patient regarding the risk of exposure to and/or potential harm posed by the COVID-19 virus with having a surgery/procedure at this time versus the risk of delaying the surgery/procedure. It is not possible to know either the risk of delaying the surgery or procedure or chance of getting an infection with perfect accuracy, but a joint decision was made between the patient and myself to proceed at this time with endoscopy. I plan to use miralax/dulcolax bowel preparation I have explained to the patient the difference between IV conscious sedation and MAC anesthesia - and I have offered either, according to the patient's wishes. I have explained that with IV conscious sedation there is no anesthesia provider available and therefore there is a limitation of the amount of IV medications that can be given and that the patient may wake up in the middle of the procedure and/or experience pain/discomfort during the procedure. Further discussion was done and the patient was given the opportunity to ask questions and all questions were answered. The patient chooses IV conscious sedation Diagnoses: (R10.13) Epigastric pain (primary encounter diagnosis) (Z87.19) History of gastritis (Z86.010) History of colonic polyps (Z12.11) Encounter for screening for malignant neoplasm of colon (K21.9) Gastroesophageal reflux disease, unspecified whether esophagitis present Consultation requested by Dr. Gregorio for an opinion regarding upper abdominal discomfort. My final recommendations will be communicated back to the requesting physician by way of shared Medical record or letter to requesting physician via US mail. Ailyn Stockton PA-C UPDATED HISTORY AND PHYSICAL EXAMINATION SERVICE DATE: 09/19/2022 SERVICE TIME: 12:06 PM PHYSICAL EXAM MUST BE COMPLETED ON ADMISSION The History and Physical (completed in the past 30 days) has been reviewed and the patient has been examined. The contents accurately reflect the patient's condition with the following additions or revisions since the H&P was completed. Examination indicates no changes. This H&P can be found in the attached. SIGNATURE: Myles Burnham III, MD PATIENT NAME: Rosemary Schroeder DATE: September 19, 2022 TIME: 12:05 PM documented in this encounter [facility] 08-23-2022 Note HNO ID: [id number] Author: Ailyn Stockton PA-C Service: ? Author Type: Physician Customer Service Professional Type: Progress Notes Filed: 09/03/2022 12:42 PM Note Text: HISTORY AND PHYSICAL Rosemary Schroeder 1945 REFERRING PHYSICIAN: Marycarmen Gregorio, * CHIEF COMPLAINT: Consult (EGD/) HPI: The patient is a 76 year old female referred for endoscopy. Rosemary notes stomach pain 30-45 minutes after eating, regardless of food type. Notes acid reflux and gas. Has had some loose stools and notes a history of colon polyps. Rosemary has undergone prior endoscopy. Last EGD was 09/10/[address] Burnham under conscious sedation with findings of some gastritis. Dr. Burnham had recommended repeat EGD in 3 years for surveillance. Last colonoscopy was 09/10/16. No concerning findings at that time, however has prior history of a sessile serrated polyp in 2013. Patient denies chest pain, shortness of breath or recent hospitalizations. Denies problems with sedation in the past. PAST MEDICAL HISTORY Diagnosis Date Diabetes (HCC) HTN (hypertension) Hyperlipidemia PAST SURGICAL HISTORY Procedure Laterality Date ARTHRP KNE CONDYLEANDPLATU MEDIALANDLAT COMPARTMENTS Right 2007 Dr. Cornelius COLONOSCOPY FLX DX W/COLLJ SPEC WHEN PFRMD 08/06/13 Colonoscopy COLONOSCOPY FLX DX W/COLLJ SPEC WHEN PFRMD 09/10/2016 repeat 10 years ESOPHAGOGASTRODUODENOSCOPY TRANSORAL DIAGNOSTIC 08/06/13 EGD ESOPHAGOGASTRODUODENOSCOPY TRANSORAL DIAGNOSTIC 09/10/2016 repeat 3 yrs PAST SURGICAL HISTORY OF appendectomy PAST SURGICAL HISTORY OF Hysterectomy PAST SURGICAL HISTORY OF Breast biopsy PAST SURGICAL HISTORY OF carpel tunnel PAST SURGICAL HISTORY OF gallbladder PAST SURGICAL HISTORY OF Moles removed from back PAST SURGICAL HISTORY OF 2007 Left breast lesion removal- Dr. Burnham PAST SURGICAL HISTORY OF Bilateral 2016 [facility]ations Medication Sig atenolol (TENORMIN) 50 mg tablet Take 25 mg by mouth once daily. pantoprazole DR (PROTONIX) 40 mg tablet Take 40 mg by mouth once daily. glimepiride (AMARYL) 2 mg tablet Take 2 mg by mouth daily with breakfast. BIOFLAV,LEMON/VIT BCOMP,C (LIPO-FLAVONOID PLUS ORAL) Take by mouth. diclofenac, EC, 75 mg EC tablet Take 75 mg by mouth twice daily. venlafaxine XR 75 mg tr24 Take by mouth once daily. HYDROCHLOROTHIAZIDE ORAL Take 25 mg by mouth. VIT C/VANCE AC/LUT/COPPER/ZNOX (PRESERVISION LUTEIN ORAL) Take by mouth. ERGOCALCIFEROL, VITAMIN D2, (VITAMIN D ORAL) Take 1,000 Units by mouth. cyanocobalamin (VITAMIN B-12) 500 mcg tablet Take by mouth once daily. simvastatin(ZOCOR 20 MG TAB) Take one(1) tablet daily at bedtime. ACETAMINOPHEN 500 MG TAB Take one(1) tablet every four(4) to six(6) hours as needed for pain. multivitamins(DAILY MULTI-VITAMIN TAB) UBIDECARENONE (COQ-10 ORAL) Take by mouth. (Patient not taking: Reported on 08/23/2022) No current facility-administered medications for this visit. ALLERGIES: Codeine and Tramadol PERSONAL HISTORY: Social History Tobacco Use Smoking status: Never Smokeless tobacco: Never Vaping Use Vaping Use: Never used Substance Use Topics Alcohol use: No Drug use: No FAMILY HISTORY: FAMILY HISTORY Problem Relation Age of Onset Alcohol/Drug Father Allergies Brother Hypertension Mother Hypertension Father Hypertension Brother Breast Cancer Maternal Grandmother Diabetes Mother Diabetes Brother Prostate Cancer Father Prostate Cancer Brother Stroke Mother Stroke Maternal Grandfather REVIEW OF SYMPTOMS: The review of systems data was entered by the nurse and reviewed by ri Nursing Notes: Tammy Ty LPN 08/23/2022 8:40 AM Signed REVIEW OF SYSTEMS: General: The patient NOTES fatigue, denies weight loss, NOTES weight gain, denies feeling hot, and denies feelings of cold. Eyes: The patient denies glaucoma, NOTES eye injury/surgery, wears glasses or contacts. Ear/Nose/Throat: The patient NOTES allergies, NOTES hayfever, NOTES ear infections, and denies bloody noses. Cardiovascular: The patient denies chest pain, denies heart disease, NOTES high blood pressure,denies cardiac stent, denies prior heart attack, denies irregular heart beat, NOTES high cholesterol, denies poor circulation, denies heart failure, other cardiac issues, denies claudication, denies cold feet, denies peripheral arterial stent. Respiratory: The patient denies tuberculosis, denies pneumonia, NOTES frequent cough, denies pulmonary embolism, denies shortness of breath, and denies coughing up blood. Gastrointestinal: The patient denies difficulty swallowing, NOTES acid reflux, denies ulcers, denies vomiting, denies jaundice/hepatitis, NOTES gallbladder problems, denies black or tarry stools, NOTES hemorrhoids, denies bleeding from rectum, denies diverticulitis, denies constipation, denies diarrhea, denies loss of stool control, and denies (more content not included)... [facility] 08-23-2022 History of Present illness Narrative HISTORY AND PHYSICAL Rosemary Schroeder 1945 REFERRING PHYSICIAN: Marycarmen Gregorio, * CHIEF COMPLAINT: Consult (EGD/) HPI: The patient is a 76 year old female referred for endoscopy. Rosemary notes stomach pain 30-45 minutes after eating, regardless of food type. Notes acid reflux and gas. Has had some loose stools and notes a history of colon polyps. Rosemary has undergone prior endoscopy. Last EGD was 09/10/[address] Burnham under conscious sedation with findings of some gastritis. Dr. Burnham had recommended repeat EGD in 3 years for surveillance. Last colonoscopy was 09/10/16. No concerning findings at that time, however has prior history of a sessile serrated polyp in 2013. Patient denies chest pain, shortness of breath or recent hospitalizations. Denies problems with sedation in the past. PAST MEDICAL HISTORY Diagnosis Date Diabetes (HCC) HTN (hypertension) Hyperlipidemia PAST SURGICAL HISTORY Procedure Laterality Date ARTHRP KNE CONDYLE&PLATU MEDIAL&LAT COMPARTMENTS Right 2007 Dr. Cornelius COLONOSCOPY FLX DX W/COLLJ SPEC WHEN PFRMD 08/06/13 Colonoscopy COLONOSCOPY FLX DX W/COLLJ SPEC WHEN PFRMD 09/10/2016 repeat 10 years ESOPHAGOGASTRODUODENOSCOPY TRANSORAL DIAGNOSTIC 08/06/13 EGD ESOPHAGOGASTRODUODENOSCOPY TRANSORAL DIAGNOSTIC 09/10/2016 repeat 3 yrs PAST SURGICAL HISTORY OF appendectomy PAST SURGICAL HISTORY OF Hysterectomy PAST SURGICAL HISTORY OF Breast biopsy PAST SURGICAL HISTORY OF carpel tunnel PAST SURGICAL HISTORY OF gallbladder PAST SURGICAL HISTORY OF Moles removed from back PAST SURGICAL HISTORY OF 2007 Left breast lesion removal- Dr. Burnham PAST SURGICAL HISTORY OF Bilateral 2016 Cataract removal- [facility]. Mcc[facility]an, [facility] Current Outpatient Medications Medication Sig atenolol (TENORMIN) 50 mg tablet Take 25 mg by mouth once daily. pantoprazole DR (PROTONIX) 40 mg tablet Take 40 mg by mouth once daily. glimepiride (AMARYL) 2 mg tablet Take 2 mg by mouth daily with breakfast. BIOFLAV,LEMON/VIT BCOMP,C (LIPO-FLAVONOID PLUS ORAL) Take by mouth. diclofenac, EC, 75 mg EC tablet Take 75 mg by mouth twice daily. venlafaxine XR 75 mg tr24 Take by mouth once daily. HYDROCHLOROTHIAZIDE ORAL Take 25 mg by mouth. VIT C/VANCE AC/LUT/COPPER/ZNOX (PRESERVISION LUTEIN ORAL) Take by mouth. ERGOCALCIFEROL, VITAMIN D2, (VITAMIN D ORAL) Take 1,000 Units by mouth. cyanocobalamin (VITAMIN B-12) 500 mcg tablet Take by mouth once daily. simvastatin(ZOCOR 20 MG TAB) Take one(1) tablet daily at bedtime. ACETAMINOPHEN 500 MG TAB Take one(1) tablet every four(4) to six(6) hours as needed for pain. multivitamins(DAILY MULTI-VITAMIN TAB) UBIDECARENONE (COQ-10 ORAL) Take by mouth. (Patient not taking: Reported on 08/23/2022) No current facility-administered medications for this visit. ALLERGIES: Codeine and Tramadol PERSONAL HISTORY: Social History Tobacco Use Smoking status: Never Smokeless tobacco: Never Vaping Use Vaping Use: Never used Substance Use Topics Alcohol use: No Drug use: No FAMILY HISTORY: FAMILY HISTORY Problem Relation Age of Onset Alcohol/Drug Father Allergies Brother Hypertension Mother Hypertension Father Hypertension Brother Breast Cancer Maternal Grandmother Diabetes Mother Diabetes Brother Prostate Cancer Father Prostate Cancer Brother Stroke Mother Stroke Maternal Grandfather REVIEW OF SYMPTOMS: The review of systems data was entered by the nurse and reviewed by ri Nursing Notes: Tammy Ty LPN 08/23/2022 8:40 AM Signed REVIEW OF SYSTEMS: General: The patient NOTES fatigue, denies weight loss, NOTES weight gain, denies feeling hot, and denies feelings of cold. Eyes: The patient denies glaucoma, NOTES eye injury/surgery, wears glasses or contacts. Ear/Nose/Throat: The patient NOTES allergies, NOTES hayfever, NOTES ear infections, and denies bloody noses. Cardiovascular: The patient denies chest pain, denies heart disease, NOTES high blood pressure,denies cardiac stent, denies prior heart attack, denies irregular heart beat, NOTES high cholesterol, denies poor circulation, denies heart failure, other cardiac issues, denies claudication, denies cold feet, denies peripheral arterial stent. Respiratory: The patient denies tuberculosis, denies pneumonia, NOTES frequent cough, denies pulmonary embolism, denies shortness of breath, and denies coughing up blood. Gastrointestinal: The patient denies difficulty swallowing, NOTES acid reflux, denies ulcers, denies vomiting, denies jaundice/hepatitis, NOTES gallbladder problems, denies black or tarry stools, NOTES hemorrhoids, denies bleeding from rectum, denies diverticulitis, denies constipation, denies diarrhea, denies loss of stool control, and denies hernias. Kidney/Bladder: The patient denies kidney stones, denies urine infections, and denies bloody urine. Skin: The patient denies a history of skin cancer, denies bleeding/changing moles, and denies a history of skin rash. Neurologic: The patient denies a history of epilepsy/convulsions, denies headaches, denies head/spinal injuries, and denies stroke/TIA. Psychiatric: The patient denies psychiatric medications, denies depression, and denies voices, denies substance abuse. Endocrine: The patient denies thyroid disorders, NOTES diabetes, and denies hormonal problems. Hematologic: The patient denies a history of bruising, denies bleeding, and denies anemia, denies blood clots. Infections: The patient NOTES a history of measles and mumps, denies rheumatic fever, and denies sexually transmitted diseases. Musculoskeletal: The patient denies back pain/injury, NOTES back problems, NOTES sciatica, denies knee/foot trouble, denies arthritis, or denies gout. When was patient's last Mammogram screening? 2023 Last Colonoscopy: 2015 Tammy Ty LPN I have confirmed and edited as necessary, the PFSH and ROS obtained by others. Ailyn Stockton PA-C PHYSICAL EXAMINATION: General: The patient is 76 year old female, well nourished, well hydrated in no acute distress. The patient is oriented to time, place, and person. VITALS: Blood pressure 136/88, pulse 89, temperature 36.4 C (97.6 F), height 157.5 cm (5' 2 ), weight 92 kg (202 lb 12.8 oz), SpO2 97 %. Body mass index is 37.09 kg/m . HEENT: Normal cephalic, ataumatic, pupils are equally round, sclera are anicteric, mucous membranes are moist, oropharynx is clear. Neck has no masses, asymmetry or lymphadenopathy. Respiratory: Clear to auscultation and percussion. Normal respiratory excursion and pattern. Cardiac: Examination is regular rate and rhythm. Normal S1/S2 Abdominal exam: Soft, nontender, with no palpable masses. No hepatosplenomegaly. No palpable hernias. Extremities: no clubbing, cyanosis or edema. No adenopathy. LABORATORY VALUES: As Noted RADIOLOGIC STUDIES: As Noted Assessment IMPRESSION: upper abdominal discomfort, history of gastritis, history of colon polyps PLAN: I have reviewed my findings with the surgeon. Will plan for upper and lower endoscopy. We discussed the risks and benefits of the planned endoscopy. I have informed the patient that complications can occur including failure to complete the endoscopy and perforation. The patient had the opportunity to ask questions concerning the planned endoscopy. My staff has also explained the procedure to the patient in understandable terms and has given the patient printed material concerning the procedure. The patient freely consents to surgery. The patient was offered a surgery/procedure at a [facility]. I have counseled the patient regarding the risk of exposure to and/or potential harm posed by the COVID-19 virus with having a surgery/procedure at this time versus the risk of delaying the surgery/procedure. It is not possible to know either the risk of delaying the surgery or procedure or chance of getting an infection with perfect accuracy, but a joint decision was made between the patient and myself to proceed at this time with endoscopy. I plan to use miralax/dulcolax bowel preparation I have explained to the patient the difference between IV conscious sedation and MAC anesthesia - and I have offered either, according to the patient's wishes. I have explained that with IV conscious sedation there is no anesthesia provider available and therefore there is a limitation of the amount of IV medications that can be given and that the patient may wake up in the middle of the procedure and/or experience pain/discomfort during the procedure. Further discussion was done and the patient was given the opportunity to ask questions and all questions were answered. The patient chooses IV conscious sedation Diagnoses: (R10.13) Epigastric pain (primary encounter diagnosis) (Z87.19) History of gastritis (Z86.010) History of colonic polyps (Z12.11) Encounter for screening for malignant neoplasm of colon (K21.9) Gastroesophageal reflux disease, unspecified whether esophagitis present Consultation requested by Dr. Gregorio for an opinion regarding upper abdominal discomfort. My final recommendations will be communicated back to the requesting physician by way of shared Medical record or letter to requesting physician via US mail. Ailyn Stockton PA-C documented in this encounter [facility] 08-23-2022 Nurse Note REVIEW OF SYSTEMS: General: The patient NOTES fatigue, denies weight loss, NOTES weight gain, denies feeling hot, and denies feelings of cold. Eyes: The patient denies glaucoma, NOTES eye injury/surgery, wears glasses or contacts. Ear/Nose/Throat: The patient NOTES allergies, NOTES hayfever, NOTES ear infections, and denies bloody noses. Cardiovascular: The patient denies chest pain, denies heart disease, NOTES high blood pressure,denies cardiac stent, denies prior heart attack, denies irregular heart beat, NOTES high cholesterol, denies poor circulation, denies heart failure, other cardiac issues, denies claudication, denies cold feet, denies peripheral arterial stent. Respiratory: The patient denies tuberculosis, denies pneumonia, NOTES frequent cough, denies pulmonary embolism, denies shortness of breath, and denies coughing up blood. Gastrointestinal: The patient denies difficulty swallowing, NOTES acid reflux, denies ulcers, denies vomiting, denies jaundice/hepatitis, NOTES gallbladder problems, denies black or tarry stools, NOTES hemorrhoids, denies bleeding from rectum, denies diverticulitis, denies constipation, denies diarrhea, denies loss of stool control, and denies hernias. Kidney/Bladder: The patient denies kidney stones, denies urine infections, and denies bloody urine. Skin: The patient denies a history of skin cancer, denies bleeding/changing moles, and denies a history of skin rash. Neurologic: The patient denies a history of epilepsy/convulsions, denies headaches, denies head/spinal injuries, and denies stroke/TIA. Psychiatric: The patient denies psychiatric medications, denies depression, and denies voices, denies substance abuse. Endocrine: The patient denies thyroid disorders, NOTES diabetes, and denies hormonal problems. Hematologic: The patient denies a history of bruising, denies bleeding, and denies anemia, denies blood clots. Infections: The patient NOTES a history of measles and mumps, denies rheumatic fever, and denies sexually transmitted diseases. Musculoskeletal: The patient denies back pain/injury, NOTES back problems, NOTES sciatica, denies knee/foot trouble, denies arthritis, or denies gout. When was patient's last Mammogram screening? 2022 Last Colonoscopy: 2015 Tammy Ty LPN documented in this encounter [facility] Diagnosis History of gastritis- Primary Personal history of other diseases of digestive system History of colonic polyps Personal history of colonic polyps Diverticulosis Diverticulosis of colon (without mention of hemorrhage) Hemorrhoids, unspecified hemorrhoid type Current use of proton pump inhibitor Encounter for long-term (current) use of other medications documented [facility] this [facility] Diagnosis Encounter for screening colonoscopy- Primary Special screening for malignant neoplasms, colon Stomach pain Dyspepsia and other specified disorders of function of stomach Long-term current use of proton pump inhibitor therapy Gastroesophageal reflux disease with esophagitis without hemorrhage History of colonic polyps Personal history of colonic polyps documented [facility] this [facility] ([facility]ative[facility] Outpatient Procedure (Routine) - Closed Specialty Diagnoses / Procedures Referred By Trav otoole Referred To Contact [facility] Diagnoses Stomach pain Long-term current use of proton pump inhibitor therapy Gastroesophageal reflux disease with esophagitis without hemorrhage History of colonic polyps Procedures EGD DIAGNOSTIC ESOPHAGOGASTRODUODENOSC OPY TRANSORAL DIAGNOSTIC Ailyn Stockton PA-C [address] [place] [address] [facility] [address] [place] [id number] Referral ID Status Reason Start Date Expiration Date V isits Requested Visits Authorized [id number] Closed Auto-Generate d Referral 08/23/2022 08/24/2023 1 1 * Outpatient Procedure (Routine) - Closed Specialty Diagnoses / Procedures Referred By Trav otoole Referred To Contact [facility] [place] Diagnoses Stomach pain Long-term current use of proton pump inhibitor therapy Gastroesophageal reflux disease with esophagitis without hemorrhage History of colonic polyps Procedures COLONOSCOPY SCREENING COLONOSCOPY FLX DX W/COLLJ SPEC WHEN PFRMD Ailyn Stockton PA-C [address] [place] [address] [address] Referral ID Status Reason Start Date Expiration Date V isits Requested Visits Authorized [id number] Closed Auto-Generate d Referral 08/23/2022 08/24/2023 1 1 [facility] for visit Narrative* Outpatient Procedure (Routine) - Closed Specialty Diagnoses / Procedures Referred By Trav otoole Referred To Contact [facility] Diagnoses Stomach pain Long-term current use of proton pump inhibitor therapy Gastroesophageal reflux disease with esophagitis without hemorrhage History of colonic polyps Procedures EGD DIAGNOSTIC ESOPHAGOGASTRODUODENOSC OPY TRANSORAL DIAGNOSTIC Ailyn Stockton PA-C [address] [place] [address] [facility] [address] [place] [id number] Referral ID Status Reason Start Date Expiration Date V isits Requested Visits Authorized [id number] Closed Auto-Generate d Referral 08/23/2022 08/24/2023 [address] [facility] Summary Purpose Family History No Family History Records Found Advance Directives No Advanced Directives Records Found Medications Administered Section Inactive Administered Medications - up to 3 most recent administrations Medication Order MAR Action Action Date Dose Rate Site benzocaine 20% 1 [place] (TOPEX) 1 [place], TOPICAL, DIRECTED, Starting on Tabby 09/19/22 at 1230, Until Tabby 09/19/22 at 1629, DOSING DIRECTED BY PHYSICIAN FOR PROCEDURAL SEDATION ONLY - Pharmaceutical Waste: Aerosol -, Intraprocedure Given 09/19/2022 12:08 PM EDT 3 Sprays diphenhydrAMINE 12.5-50 mg injection (BENADRYL) 12.5-50 mg, INTRAVENOUS, DIRECTED, Starting on Tabby 09/19/22 at 1230, Until Tabby 09/19/22 at 1629, DOSING DIRECTED BY PHYSICIAN FOR PROCEDURAL SEDATION ONLY, Intraprocedure Given 09/19/2022 12:11 PM EDT 50 mg fentaNYL 50 mcg/mL 25-100 mcg injection (SUBLIMAZE) 25-100 mcg, INTRAVENOUS, DIRECTED, Starting on Tabby 09/19/22 at 1230, Until Tabby 09/19/22 at 1629, DOSING DIRECTED BY PHYSICIAN FOR PROCEDURAL SEDATION ONLY, Intraprocedure Given 09/19/2022 12:25 PM EDT 50 mcg Additional Source Comments Source Comments (unrecognize d section and content) In the event this informatio n is protected by the Federal Confidentiality of Alcohol and Drug Abuse Patient Records regulations: The Federal rules restrict any use of the information to criminally investigate or prosecute any alcohol or drug abuse patient.[facility] the event this information is protected by the Federal Confidentiality of Alcohol and Drug Abuse Patient Records regulations: The Federal rules restrict any use of the information to criminally investigate or prosecute any alcohol or drug abuse patient.[facility] the event this information is protected by the Federal Confidentiality of Alcohol and Drug Abuse Patient Records regulations: The Federal rules restrict any use of the information to criminally investigate or prosecute any alcohol or drug abuse patient.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 This clinical summary was aggregated from multiple sources. Caution should be exercised in using it in the provision of clinical care. This summary normalizes information from multiple sources, and as a consequence, information in this document may materially change the coding, format and clinical context of patient data. In addition, data may be omitted in some cases. CLINICAL DECISIONS SHOULD BE BASED ON THE PRIMARY CLINICAL RECORDS. [facility]. provides no warranty or guarantee of the accuracy or completeness of information in this document.
[2023-07-28 18:20] LABS: Anion Gap 4 (5-15); BUN 27 mg/dL (7-18); BUN/Creat Ratio 26.5 RATIO (10-20); Calcium,Total 9.8 mg/dL (8.5-10.1); Chloride 103 mmol/L (98-107); Cholesterol 174 mg/dL (200); Creatinine, Serum 1.02 mg/dL (0.55-1.02); EST Glomerular Filtration Rate 56 mL/min (>60); Est Glom Filt Rate - Afr Amer 67 mL/min (>60); Glucose 154 mg/dL (74-106); High Density Lipoprotein 45 mg/dL; Potassium 3.8 mmol/L (3.5-5.1); Sodium Level 137 mmol/L (136-145); Thyroid Stim Hormone (TSH) 2.14 uIU/mL (0.358-3.74); Triglycerides 244 mg/dL; Very Low Density Lipoprotein 49 mg/dL (5-40)
== END | disposition home or self-care (01) ==
LOC: MFPLAB 15:25
PROVIDERS: PCP Family Medicine; Visit Provider Family Medicine
DX: E11.69 Type 2 diabetes mellitus with other specified complication (principal); E11.22 Type 2 diabetes mellitus with diabetic chronic kidney disease; N18.30 Chronic kidney disease, stage 3 unspecified
CPT/HCPCS: 36415; 80048; 80061; 84443

== ENCOUNTER → 2023-08-25 | Outpatient (CLI) | payer MEDICARE, OTHER, SELFPAY ==
--- NOTE | 2023-08-25 13:29 | BI_ITS ---
MAMMOGRAPHY - BILATERAL SCREENING 3-D TOMOSYNTHESIS REASON FOR EXAM: Female, 77 years old. annual PERTINENT HISTORY: No significant family history. TECHNIQUE: 2-D mammograms and 3-D Tomosynthesis of the breast (s) were performed. CAD was performed. COMPARISON: 08/20/2022 FINDINGS: The breast composition is composed of scattered fibroglandular density. Scattered benign calcifications are seen. No dense spiculated masses or suspicious microcalcifications are identified. No architectural distortion is identified. There is no skin thickening or retraction. There has been no significant change since the prior study. BI/SCRN MAMM (CAD)W/MELINDA BILAT IMPRESSION: No mammographic signs of malignancy. Routine yearly mammograms recommended. ASSESSMENT CATEGORY: BIRADS Category 1: Negative. A letter regarding these results will be sent to the patient by the facility within 30 days. FOLLOW UP RECOMMENDATION: Yearly follow up mammogram recommended. (A) Approximately 10% of breast cancers are not detected by mammography. A normal mammogram should not delay biopsy of a clinically suspicious abnormality. Electronically Signed: Brodie Best MD at 15:41 EST ,
== END | disposition home or self-care (01) ==
LOC: OPBI 13:29
PROVIDERS: PCP Family Medicine; Referring Provider Family Medicine; Visit Provider Family Medicine
DX: Z12.31 Encounter for screening mammogram for malignant neoplasm of breast (principal)
CPT/HCPCS: 77063; 77067

== ENCOUNTER 2023-10-16 17:30 | Outpatient (RCR) | payer SELFPAY | END 2023-10-21 23:59 | LOC: NS 17:30 | PROVIDERS: PCP Family Medicine | DX: Z71.3 Dietary counseling and surveillance (principal) ==

== ENCOUNTER → 2023-11-26 | Outpatient (CLI) | payer MEDICARE, OTHER, SELFPAY ==
[2023-11-26 18:21] LABS: Anion Gap 8 (5-15); BUN 25 mg/dL (7-18); BUN/Creat Ratio 23.1 RATIO (10-20); Chloride 103 mmol/L (98-107); Creatinine, Serum 1.08 mg/dL (0.55-1.02); EST Glomerular Filtration Rate 52 mL/min (>60); Est Glom Filt Rate - Afr Amer 63 mL/min (>60); Glucose 135 mg/dL (74-106); Potassium 4.3 mmol/L (3.5-5.1); Sodium Level 140 mmol/L (136-145)
== END | disposition home or self-care (01) ==
LOC: MFPLAB 15:13
PROVIDERS: PCP Family Medicine; Visit Provider Family Medicine
DX: E11.69 Type 2 diabetes mellitus with other specified complication (principal); I10 Essential (primary) hypertension
CPT/HCPCS: 36415; 80048

== ENCOUNTER → 2024-02-05 | Outpatient (CLI) | payer MEDICARE, OTHER, SELFPAY ==
--- NOTE | 2024-02-05 14:54 | RAD_ITS ---
STUDY: X-RAY - CERVICAL SPINE REASON FOR EXAM: Female, 78 years old. Cervicalgia TECHNIQUE: 5 view(s) of the cervical spine were obtained. COMPARISON: 12/18/2017 FINDINGS: Normal anterior atlantoaxial articulation. Normal odontoid process. Normal cervical lordosis. There is multi-level endplate spondylosis. There is multi-level degenerative disc disease with multilevel disc space narrowing. There is multi-level osseous foraminal stenosis. The soft tissue structures are unremarkable. RAD/Cerv Spine 4 or 5 Views IMPRESSION: Diffuse degenerative disc disease. MRI may be useful. Electronically Signed: Brodie Best MD at 9:33 EDT ,
[2024-02-05 18:34] LABS: AST(SGOT) 25 U/L (15-37); Alanine Aminotransfer ALT/SGPT 28 U/L (13-56); Albumin, Serum 3.4 g/dL (3.2-5.0); Alkaline Phosphatase 104 U/L (45-117); Anion Gap 7 (5-15); BUN 26 mg/dL (7-18); BUN/Creat Ratio 25.5 RATIO (10-20); Calcium,Total 9.1 mg/dL (8.5-10.1); Chloride 105 mmol/L (98-107); Cholesterol 134 mg/dL (200); Creatinine, Serum 1.02 mg/dL (0.55-1.02); EST Glomerular Filtration Rate 56 mL/min (>60); Est Glom Filt Rate - Afr Amer 67 mL/min (>60); Globulin 3.3 g/dL (2.2-4.2); Glucose 144 mg/dL (74-106); High Density Lipoprotein 43 mg/dL; Potassium 4.2 mmol/L (3.5-5.1); Protein, Total 6.7 g/dL (6.4-8.2); Sodium Level 139 mmol/L (136-145); Triglycerides 206 mg/dL; Very Low Density Lipoprotein 41 mg/dL (5-40)
== END | disposition home or self-care (01) ==
LOC: MTLAB 14:53
PROVIDERS: PCP Family Medicine; Referring Provider Family Medicine; Visit Provider Family Medicine
DX: E11.69 Type 2 diabetes mellitus with other specified complication (principal); M54.2 Cervicalgia; E03.9 Hypothyroidism, unspecified
CPT/HCPCS: 36415; 72050; 80053; 80061; 84443

== ENCOUNTER → 2024-08-17 | Outpatient (CLI) | payer MEDICARE, OTHER, SELFPAY ==
[2024-08-17 20:37] LABS: ALB/GLOB Ratio 1.6 RATIO (0.9-2.4); AST(SGOT) 32 U/L (<=31); Alanine Aminotransfer ALT/SGPT 27 U/L (<=34); Albumin, Serum 4.1 g/dL (3.4-4.8); Alkaline Phosphatase 107 U/L (35-104); Anion Gap 14 (5-15); BUN 28 mg/dL (4-19); BUN/Creat Ratio 26.1 RATIO (10-20); Calcium 9.8 mg/dL (7.6-11.0); Carbon Dioxide 25.8 mmol/L (22.0-29.0); Chloride 101 mmol/L (96-108); Creatinine, Serum 1.1 mg/dL (0.6-1.0); EST Glomerular Filtration Rate 52 (>60); Globulin 2.5 g/dL (2.2-4.2); Glucose 107 mg/dL (70-99); Protein, Total 6.6 g/dL (5.9-8.4); Sodium Level 141 mmol/L (133-145); Total Bilirubin 0.35 mg/dL (0.00-1.30)
== END | disposition home or self-care (01) ==
LOC: MFPLAB 14:37
PROVIDERS: PCP Family Medicine; Referring Provider Family Medicine; Visit Provider Family Medicine
DX: E11.69 Type 2 diabetes mellitus with other specified complication (principal); E03.9 Hypothyroidism, unspecified
CPT/HCPCS: 36415; 80053; 84443

== ENCOUNTER → 2024-08-25 | Outpatient (CLI) | payer MEDICARE, OTHER, SELFPAY ==
--- NOTE | 2024-08-25 14:15 | BI_ITS ---
PROCEDURE: SCRN MAMM (CAD)W/MELINDA BILAT REASON FOR EXAM: F, Age 78 y/o, maternal grandmother with breast cancer. Routine follow-up. TECHNIQUE: Bilateral screening digital breast tomosynthesis with 2D and 3D images. Computer aided detection. COMPARISON: Prior exam(s) dating back to August 25, 2023.. FINDINGS: The breasts are almost entirely fatty. Stable examination. No suspicious masses, areas of developing architectural distortion, or suspicious calcifications. BI/SCRN MAMM (CAD)W/MELINDA BILAT IMPRESSION: BI-RADS 1: NEGATIVE. RECOMMEND ANNUAL MAMMOGRAPHIC SCREENING. Follow-up code: Routine Follow-up The patient will be notified of the results by letter. Reading Location: [id number]
== END | disposition home or self-care (01) ==
LOC: OPBI 14:12
PROVIDERS: PCP Family Medicine; Referring Provider Family Medicine; Visit Provider Family Medicine
DX: Z12.31 Encounter for screening mammogram for malignant neoplasm of breast (principal); Z80.3 Family history of malignant neoplasm of breast
CPT/HCPCS: 77063; 77067

== ENCOUNTER → 2025-03-15 | Outpatient (CLI) | payer MEDICARE, OTHER, SELFPAY ==
--- OUTSIDE RECORDS SUMMARY | 2025-03-15 12:17 | XMS RPT_ITS | CCD ---
Author Organization [facility] Care Team Providers Care Recycling Collections Driver Name Role Phone Marycarmen Gregorio MD Primary Care Provider MARYCARMEN GREGORIO Primary Care Unavailabl e MYLES BURNHAM Referring Unavailable GRAF AILYN Attending Unavailable MARYCARMEN GREGORIO Primary Care UnavailMYLES Lopez Attending Unavailable , AILYN Referring Unavailable MARYCARMEN GREGORIO Referring Unavailshubham e MARYCARMEN GREGORIO Primary Care Unavailshubham STOCKTON, AILYN Attending Unavailable Marycarmen Gregorio MD Primary Care Provider Marycarmen Gregorio Primary Care Unavailable Marycarmen Gregorio Attending Unavailable Marycarmen Gregorio Referring Unavailable Marycarmen Gregorio Primary Care Unavailable Darline, Marycarmen Attending Unavailable Darline, Marycaremn Referring Unavailable Darline, Marycarmen Referring Unavailable Darline, Marycarmen Primary Care Unavailable Marycarmen Gregorio Attending Unavailable Darline, Marycarmen Primary Care Unavailable Marycarmen Gregorio Attending Unavailable Marycarmen Gregorio Primary Care Unavailable Referred, Self Attending Unavailable Marycarmen Gregorio Primary Care Unavailable Referred, Self Attending Unavailable Dr. Marycarmen Gregorio MD Primary Care Provider Dr. Marycarmen Gregorio MD Attending Provider Dr. Marycarmen Gregorio MD Referring Provider Allergies Allergy Classification Reported Allergen(s) Allergy Type Date of Onset Reaction(s) Facility (14 sources) Codeine; Translations: [CODEINE] Drug Allergy 8 Nausea/Vom/Diar simone [facility] (10 sources) Tetracycline Drug Allergy 9 Vomiting [facility] (4 sources) traMADol; Translations: [TRAMADOL] Drug Allergy 3 GI Upset [facility] (1 source) Codeine Drug Allergy 9 [facility] (1 source) Tetracycline Drug Allergy 9 [facility] Medications Current Medications Medication Drug Class(es) Dates Sig (Normalized) Sig (Original) 8 hr acetaminophen 650 mg extended release oral tablet (13 sources) Start: 11-03-2018 Acetaminophen (Tylenol Arthritis) 650 MG tablet extended release Active 650 mg PO NEEDED as needed for Pain November 03, 2018 12:00am Start: 12-16-2007 ACETAMINOPHEN 500 MG TAB Take one(1) tablet every four(4) to six(6) hours as needed for pain. 0 12/16/2007 Active Comment on above: Take one(1) tablet e very four(4) to six(6) hours as needed for pain. atenolol 50 mg oral tablet (13 sources) beta-Adrenergic Erick Start: 12-18-2017 take 1 tablet by mouth once daily Atenolol 50 mg tablet Active 50 mg PO daily December 18, 2017 12:00am atenolol (TENORM IN) 50 mg tablet Take 25 mg by mouth once daily. 0 Active Comment on above: Take 25 mg by mouth once daily. diclofenac sodium 0.01 mg/mg topical gel (20 sources) Nonsteroidal Anti-inflammatory Drug Start: 9 apply 2 g topically four times daily as needed for pain Diclofenac Sodium (Voltaren) 1 % gel Active 2 g TOPICAL .QID 100 October 14, 2018 12:00am apply to single elbow, wrist or hand; for hand includes palm/fingers/back of hand 4x/day as needed for pain. Start: 12-18-2017 take 1 tablet by twice daily Diclofenac Sodium 75 mg tablet,delayed release (DR/EC) Active 75 mg PO TWICE A DAY December 18, 2017 12:00am Comment on above: Take 75 mg by mouth twice daily. glimepiride 2 mg oral tablet (13 sources) Sulfonylurea Start: 2017 take 1 tablet by mouth once daily in the morning Glimepiride 2 mg tablet Active 2 mg PO EVERY MORNING December 18, 2017 12:00am Comment on above: Take 2 mg by mouth d aily with breakfast. hydroCHLOROthiazide 12.5 mg oral capsule (13 sources) Thiazide Diuretic Start: 2017 take 1 capsule by mouth once daily in the morning Hydrochlorothiazide 12.5 mg capsule Active 12.5 mg PO EVERY MORNING December 18, 2017 12:00am HYDROCHLOROTHIAZ BRANDYN ORAL Take 25 mg by mouth. 0 Active Comment on above: Take 25 mg by mouth. levothyroxine sodium 0.05 mg oral capsule (10 sources) l-Thyroxine Start: 8 take 1 capsule by mouth once daily Levothyroxine 50 mcg capsule Active 50 ug PO daily December 18, 2017 12:00am Multivitamin (One-A-Day Essential) tablet (10 sources) Start: 8 take 1 tablet by mouth once daily in the morning Multivitamin (One-A-Day Essential) tablet Active 1 TABLET PO EVERY MORNING December 18, 2017 2:57pm Start: 12-18-2017 Multivitamin ( One-A-Day Essential) tablet Active 1 {tbl} PO EVERY MORNING December 18, 2017 12:00am Start: 12-18-2017 take 1 tablet by cassy th once daily in the morning Multivitamin (One-A-Day Essential) tablet Active 1 TABLET PO EVERY MORNING December 18, 2017 12:00am Start: 12-18-2017 take 1 tablet by cassy th once daily in the morning Multivitamin (One-A-Day Essential) tablet Active 1 TABLET PO EVERY MORNING December 17, 2017 11:00pm pantoprazole 20 mg delayed release oral tablet (13 sources) Proton Pump Inhibitor Start: 12-18-2017 take 1 tablet by mouth once daily Pantoprazole 20 mg tablet,delayed release (DR/EC) Active 20 mg PO daily December 18, 2017 12:00am take 1 tablet by mouth once jase y pantoprazole DR (PROTONIX) 40 mg tablet Take 40 mg by mouth once daily. 0 Active Comment on above: Take 40 mg by mouth once daily. 24 hr venlafaxine 75 mg extended release oral capsule (13 sources) Serotonin and Norepinephrine Reuptake Inhibitor Start: 12-19-19 18 take 1 capsule by mouth once daily Venlafaxine 75 mg capsule,extended release 24hr Active 75 mg PO daily December 18, 2017 12:00am venlafaxine XR 7 5 mg tr24 Take by mouth once daily. 0 Active Comment on above: Take by mouth once d aily. Vitamins A,C,J-Djvi-Kxfiwn (Preservision Areds) 14,320-226-200 dvuc-vv-sglb capsule (10 sources) Start: 12-18-2017 take 1 capsule by mouth twice daily Vitamins A,C,J-Zbhl-Tcjiln (Preservision Areds) 14,320-226-200 jajm-rm-quti capsule Active 1 CAP PO TWICE A DAY December 18, 2017 2:57pm Start: 12-18-2017 Vitamins A,C,E -Zinc-Copper (Preservision Areds) 14,320-226-200 poqr-zc-exzf capsule Active 1 NMA PO TWICE A DAY December 18, 2017 12:00am Start: 12-18-2017 take 1 capsule by mo uth twice daily Vitamins A,C,R-Opjh-Udzitq (Preservision Areds) 14,320-226-200 baih-br-cruf capsule Active 1 CAP PO TWICE A DAY December 18, 2017 12:00am Start: 12-18-2017 take 1 capsule by mo uth twice daily Vitamins A,C,H-Giok-Wacdtm (Preservision Areds) 14,320-226-200 phcz-lx-qita capsule Active 1 CAP PO TWICE A DAY December 17, 2017 11:00pm Completed/Discontinued Medications Medication Drug Class(es) Dates Sig (Normalized) Sig (Original) acetaminophen 325 mg / HYDROcodone bitartrate 5 mg oral tablet (20 sources) Opioid Agonist Start: 11-10-2018 End: 11-15-2018 Hydrocodone-Acetami nophen 1 TABLET tablet Discontinued 1 - 2 {tbl} PO EVERY 4 HOURS NEEDED as needed for Pain 09 11November 10, 2018 12:00am November 14, 2018 12:00am November 15, 2018 12:07am Start: 11-10-2018 End: 11-15-2018 take 1 tablet by mouth every four hours as needed Hydrocodone-Acetaminophen Discontinued 1 - 2 TABLET PO EVERY 4 HOURS NEEDED 09 11November 10, 2018 12:00am November 15, 2018 12:07am Start: 12-09-2017 End: 10-14-2018 Hydrocodone-Acetaminophen 1 TABLET tablet Discontinued 1 {tbl} PO EVERY 6 HOURS NEEDED as needed for Pain 10 3 December 09, 2017 12:00am October 14, 2018 12:52pm Start: 12-09-2017 End: 10-14-2018 take 1 tablet by mouth every six hours as needed Hydrocodone-Acetaminophen Discontinued 1 TABLET PO EVERY 6 HOURS NEEDED 10 December 09, 2017 12:00am October 14, 2018 12:52pm aspirin 81 mg delayed release oral tablet (1 source) Platelet Aggregation Inhibitor, Nonsteroidal Anti-inflammatory Drug End: 08-23-2022 take 1 tablet by mouth once daily aspirin, enteric coated 81 mg EC tablet Take 81 mg by mouth once daily. 0 08/23/2022 Discontinued Comment on above: Take 81 mg by mouth once daily. BIOFLAV,LEMON/VIT BCOMP,C (LIPO-FLAVONOID PLUS ORAL) (3 sources) BIOFLAV,LEMON/ T BCOMP,C (LIPO-FLAVONOID PLUS ORAL) Take by mouth. 0 Active Comment on above: Take by mouth. ERGOCALCIFEROL, VITAMIN D2, (VITAMIN D ORAL) (3 sources) take 1000 [IU] by mouth once ERGOCALCIFEROL, VITAMIN D2, (VITAMIN D ORAL) Take 1,000 Units by mouth. 0 Active Comment on above: Take 1,000 Units by mouth. multivitamins(JASE Y MULTI-VITAMIN TAB) (3 sources) Start: 12-16-2007 multivitamins(DAILY MULTI-VITAMIN TAB) simvastatin 20 mg oral tablet (3 sources) HMG-CoA Reductase Inhibitor Start: 12-16-2007 simvastatin(ZOCOR 20 MG TAB) Take one(1) tablet daily at bedtime. 0 12/16/2007 Active Comment on above: Take one(1) tablet d aily at bedtime. UBIDECARENONE (COQ-10 ORAL) (3 sources) UBIDECARENONE (COQ-10 ORAL) Take by mouth. 0 Active Comment on above: Take by mouth. VIT C/VANCE AC/LUT/COPPER/ZNOX (PRESERVISION LUTEIN ORAL) (3 sources) VIT C/VANCE AC/LUT/COPPER/ZNOX (PRESERVISION LUTEIN ORAL) Take by mouth. 0 Active Comment on above: Take by mouth. vitamin b12 0.5 mg oral tablet (3 sources) Vitamin B12 cyanocobalamin (VITAMIN B-12) 500 mcg tablet Take by mouth once daily. 0 Active Comment on above: Take by mouth once d aily. Problems Problem Classification Problem Date Documented Da te Episodic/Chronic Abdominal pain (3 sources) Epigastric pain; Translations: [Epigastric pain] Onset: 3 Episodic Diabetes mellitus with complications (1 source) Type 2 diabetes mellitus with other specified complication; Translations: [Type 2 diabetes mellitus with other specified complication] Onset: 5 Chronic Diverticulosis and diverticulitis (2 sources) Diverticular disease; [...] (1 source) Drug therapy finding; Translations: [Other chcf (current) drug therapy] Episodic Other aftercare (3 sources) Other chcf (current) drug therapy; Translations: [Long-term (current) use [...] conditions (not mental disorders or infectious disease) (4 sources) Patient encounter status; Translations: [Encounter for screening for malignant neoplasm of colon] Onset: 3 Episodic Results Test Name Value Interpretation Reference Range Facility Breast imaging reportOrdered By: Osmany Etienne on 08-25-2024 Study report [facility] Imaging Services [address] [place], [place] [id number] SCRN MAMM (CAD)W/MELINDA BILAT MR#: [id number] Acct: [id number] Name: ROSEMARY SCHROEDER Rep #: [id number] : 1945 F 78 From: Wilver Etienne MD PCP: Dr. Marycarmen Gregorio MD Status: REG CLI Study:SCRN MAMM (CAD)W/MELINDA BILAT Date of Exa m: 08/25/24 Exam# [id number] Ordering Dr: Santa Gregorio MD PROCEDURE: SCRN MAMM (CAD)W/MELINDA BILAT REASON FOR EXAM: F, Age 78 y/o, maternal grandmother with breast cancer. Routine follow-up. TECHNIQUE: Bilateral screening digital breast tomosynthesis with 2D and 3D images. Computeraided detection. COMPARISON: Prior exam(s) dating back to August 25, 2023.. FINDINGS: The breasts are almost entirely fatty. Stable examination. No suspicious masses, areas of developing architectural distortion, or suspicious calcifications. BI/SCRN MAMM (CAD)W/MELINDA BILAT IMPRESSION: BI-RADS 1: NEGATIVE. RECOMMEND ANNUAL MAMMOGRAPHIC SCREENING. Follow-up code: Routine Follow-up The patient will be notified of the results by letter. Reading Location: [id number] CC: Dr. Marycarmen Gregorio MD ~ Explosives Mixer Operator: Signed [facility] SCRN MAMM (CAD)W/MELINDA BILATo n 08-25-2024 SCRN MAMM (CAD)W/MELINDA BILAT [facility] Imaging Services [address] [place] [id number] SCRN MAMM (CAD)W/MELINDA BILAT MR#: [id number] Acct: [id number] Name: ROSEMARY SCHROEDER Rep #: [id number] : 1945 F 78 From: Osmany pennington MD PCP: Dr. Marycarmen Gregorio MD Status: REG CLI Study: SCRN MAMM (CAD)W/MELINDA BILAT Date of Exam: 11/14 Exam# [id number] Ordering Dr: Marycarmen Gregorio PROCEDURE: SCRN MAMM (CAD)W/MELINDA BILAT REASON FOR EXAM: F, Age 78 y/o, maternal grandmother with breast cancer. Routine follow-up. TECHNIQUE: Bilateral screening digital breast tomosynthesis with 2D and 3D images. Computer aided detection. COMPARISON: Prior exam(s) dating back to August 25, 2023.. FINDINGS: The breasts are almost entirely fatty. Stable examination. No suspicious masses, areas of developing architectural distortion, or suspicious calcifications. BI/SCRN MAMM (CAD)W/MELINDA BILAT IMPRESSION: BI-RADS 1: NEGATIVE. RECOMMEND ANNUAL MAMMOGRAPHIC SCREENING. Follow-up code: Routine Follow-up The patient will be notified of the results by letter. Reading Location: [id number] CC: Dr. Marycarmne Gregorio MD Explosives Mixer Operator: Signed Normal [facility] BUN/creatinine ratioOrdered By: Marycarmen Gregorio on 08-17-2024 Urea nitrogen/Creatinine [Mass ratio] 26.1 mg/mg High 10-20 [facility] Bilirubin, totalOrdered By: Marycarmen Gregorio on 08-17-2024 Bilirubin [Mass/Vol] 0.35 mg/dL 0.00-1.30 [facility] Comprehensive Metabolic Prof ilon 08-17-2024 Albumin [Mass/Vol] 4.1 g/dL Normal 3.4-4.8 [facility] Comment on above: Order Comment: Order Date: 08/17/24 Order Info: 0786-1 - CMP Order Info: 3016-3 - TSH Performed By: #### L [id number], [id number] #### [facility] Laboratory [address], [address] Albumin/Globulin [Mass ratio] 1.6 {ratio} Normal 0.9-2.4 [facility] Comment on above: Order Comment: Order Date: 08/17/24 Order Info: 0786-1 - CMP Order Info: 3016-3 - TSH Performed By: #### L [id number], [id number] #### [facility] [address] [place], [address] ALK PHOS 107 U/L High 35-104 [facility] Comment on above: Order Comment: Order Date: 08/17/24 Order Info: 0786-1 - CMP Order Info: 301-3 - TSH Performed By: #### L [id number], [id number] #### [facility] [address] [place], [address] ALT [Catalytic activity/Vol] 27 U/L Normal <=34 [facility] Comment on above: Order Comment: Order Date: 08/17/24 Order Info: 785-1 - CMP Order Info: 3015-3 - TSH Performed By: #### L [id number], [id number] #### [facility] [address] [place], [address] Anion gap [Moles/Vol] 14 mmol/L Normal 5-15 [facility] Comment on above: Order Comment: Order Date: 08/17/24 Order Info: 0786-1 - CMP Order Info: 3015-3 - TSH Performed By: #### L [id number], [id number] #### [facility] [address] [place], [address] AST [Catalytic activity/Vol] 32 U/L Normal <=31 [facility] Comment on above: Order Comment: Order Date: 08/17/24 Order Info: 0786-1 - CMP Order Info: 3015-3 - TSH Performed By: #### L [id number], [id number] #### [facility] [address] [place], [address] Bilirubin [Mass/Vol] 0.35 mg/dL Normal 0.00-1.30 [facility] Comment on above: Order Comment: Order Date: 08/17/24 Order Info: 0786-1 - CMP Order Info: 3015-3 - TSH Performed By: #### L [id number], [id number] #### [facility] [address] [place], [address] BUN/CRE 26.1 RATIO High 10-20 [facility] Comment on above: Order Comment: Order Date: 08/17/24 Order Info: 0786-1 - CMP Order Info: 3015-3 - TSH Performed By: #### L [id number], [id number] #### [facility] [address] [place], [address] Calcium [Mass/Vol] 9.8 mg/dL Normal 7.6-11.0 [facility] Comment on above: Order Comment: Order Date: 08/17/24 Order Info: 0786-1 - CMP Order Info: 3015-3 - TSH Performed By: #### L [id number], [id number] #### [facility] [address] [place], [address] Chloride [Moles/Vol] 101 mmol/L Normal 96-108 [facility] Comment on above: Order Comment: Order Date: 08/17/24 Order Info: 0786-1 - CMP Order Info: 3013 - TSH Performed By: #### L [id number], [id number] #### [facility] [address] [place], [address] CO2 [Moles/Vol] 25.8 mmol/L Normal 22.0-29.0 [facility] Comment on above: Order Comment: Order Date: 08/17/24 Order Info: 0786-1 - CMP Order Info: 301-3 - TSH Performed By: #### L [id number], [id number] #### [facility] [address] [place], [address] Creatinine [Mass/Vol] 1.1 mg/dL High 0.6-1.0 [facility] Comment on above: Order Comment: Order Date: 08/17/24 Order Info: 0786-1 - CMP Order Info: 3016-3 - TSH Performed By: #### L [id number], [id number] #### [facility] [address] [place], [address] GFR/1.73 sq M.predicted among non-blacks MDRD (S/P/Bld) [Vol rate/Area] 52 mL/min/{1.73_m2} Low >60 [facility] Comment on above: Order Comment: Order Date: 08/17/24 Order Info: 0786-1 - CMP Order Info: 3 - TSH Result Comment: mL/m in/1.73m2 CKD-EPI Creatinine Equation (2020) Performed By: #### L [id number], [id number] #### [facility] [address] [place], [address] Globulin (S) [Mass/Vol] 2.5 g/dL Normal 2.2-4.2 [facility] Comment on above: Order Comment: Order Date: 08/17/24 Order Info: 0786-1 - CMP Order Info: 3015-08 - TSH Performed By: #### L [id number], [id number] #### [facility] [address] [place], [address] Glucose [Mass/Vol] 107 mg/dL High 70-99 [facility] Comment on above: Order Comment: Order Date: 08/17/24 Order Info: 0786-1 - CMP Order Info: 3 - TSH Performed By: #### L [id number], [id number] #### [facility] [address] [place], [address] Potassium [Moles/Vol] 4.0 mmol/L Normal 3.3-5.1 [facility] Comment on above: Order Comment: Order Date: 08/17/24 Order Info: 0786-1 - CMP Order Info: 3 - TSH Performed By: #### L [id number], [id number] #### [facility] [address] [place], [address] Sodium [Moles/Vol] 141 mmol/L Normal 133-145 [facility] Comment on above: Order Comment: Order Date: 08/17/24 Order Info: 0786-1 - CMP Order Info: 3016-3 - TSH Performed By: #### L [id number], [id number] #### [facility] [address] [place], [address] T PROT 6.6 g/dL Normal 5.9-8.4 [facility] Comment on above: Order Comment: Order Date: 08/17/24 Order Info: 0786-1 - CMP Order Info: 3016-3 - TSH Performed By: #### L [id number], [id number] #### [facility] [address] [place], [address] Urea nitrogen [Mass/Vol] 28 mg/dL High 4-19 [facility] Comment on above: Order Comment: Order Date: 08/17/24 Order Info: 0786-1 - CMP Order Info: 3016-3 - TSH Performed By: #### L [id number], [id number] #### [facility] [address] [place], [address] Creatinine [Moles/Vol]Ordere d By: Marycarmen Gregorio on 08-17-2024 Creatinine [Mass/Vol] 1.1 mg/dL High 0.6-1.0 [facility] GFR/1.73 sq M.predicted mechelle g non-blacks MDRD (S/P/Bld) [Vol rate/Area]Ordered By: Marycarmen Gregorio on 08-17-2024 Estimated GFR (MDRD) Non-Af Amer 52 Low >60 [facility] Comment on above: mL/min/1.73m2 CKD-EP I Creatinine Equation (2020) Laboratory - Chemistry and C hemistry - challengeOrdered By: Marycarmen Gregorio on 08-17-2024 AST [Catalytic activity/Vol] 32 U/L <32 [facility] Serum globulin measurementOr dered By: Marycarmen Gregorio on 08-17-2024 Globulin (S) [Mass/Vol] 2.5 g/dL 2.2-4.2 [facility] Serum glucose measurement (m ass/volume)Ordered By: Marycarmen Gregorio on 08-17-2024 Glucose [Mass/Vol] 107 mg/dL High 70-99 [facility] Serum or plasma alanine miles otransferase (ALT) measurementOrdered By: Marycarmen Gregorio on 08-17-2024 ALT [Catalytic activity/Vol] 27 U/L <35 [facility] Serum or plasma albumin felisa urement (mass/volume)Ordered By: Marycarmen Gregorio on 08-17-2024 Albumin [Mass/Vol] 4.1 g/dL 3.4-4.8 [facility] Serum or plasma albumin/glob ulin mass ratioOrdered By: Marycarmen Gregorio on 08-17-2024 Albumin/Globulin [Mass ratio] 1.6 {ratio} 0.9-2.4 [facility] Serum or plasma alkaline gina sphatase measurementOrdered By: Marycarmen Gregorio on 08-17-2024 ALP [Catalytic activity/Vol] 107 U/L High 35-104 [facility] Serum or plasma anion gap de termination (moles/volume)Ordered By: Marycarmen Gregorio on 08-17-2024 Anion gap [Moles/Vol] 14 mmol/L 5-15 [facility] Serum or plasma calcium felisa urement (mass/volume)Ordered By: Marycarmen Gregorio on 08-17-2024 Calcium [Mass/Vol] 9.8 mg/dL 7.6-11.0 [facility] Serum or plasma potassium me asurementOrdered By: Marycarmen Gregorio on 08-17-2024 Potassium [Moles/Vol] 4.0 mmol/L 3.3-5.1 [facility] Serum or plasma sodium measu rement (moles/volume)Ordered By: Marycarmen Gregorio on 08-17-2024 Sodium [Moles/Vol] 141 mmol/L 133-145 [facility] Serum or plasma urea nitroge n measurement (mass/volume)Ordered By: Marycarmen Gregorio on 08-17-2024 Urea nitrogen [Mass/Vol] 28 mg/dL High 4-19 [facility] TSH DL <= 0.005 mIU/L QnOrde red By: Marycarmen Gregorio on 08-17-2024 Thyroid Stimulating Hormone (TSH) 3.520 uIU/mL 0.300-4.200 [facility] Thyroid Stim Hormone (TSH)on 08-17-2024 TSH 3.520 uIU/mL Normal 0.300-4.200 [facility] Comment on above: Order Comment: Order Date: 08/17/24 Order Info: 0786-1 - CMP Order Info: 3016-3 - TSH Performed By: #### L [id number], L500.4050 #### [facility] [address] [place], [place], [address] Total proteinOrdered By: Gwen winters Darline on 08-17-2024 Protein [Mass/Vol] 6.6 g/dL 5.9-8.4 [facility] Cerv Spine 4 or 5 Viewson Cerv Spine 4 or 5 Views [facility] Imaging Services [address] [place], [place] [address] Cerv Spine 4 or 5 Views MR#: [id number] Acct: [id number] Name: ROSEMARY SCHROEDER Rep #: [id number] : 1945 F 78 From: Brodie Best MD PCP: Dr. Marycarmen Gregorio MD Status: REG CLI Study: Cerv Spine 4 or 5 Views Date of Exam: 02/05/24 Exam# [id number] Ordering Dr: Marycarmen Gregorio [id number] STUDY: X-RAY - CERVICAL SPINE REASON FOR EXAM: Female, 78 years old. Cervicalgia TECHNIQUE: 5 view(s) of the cervical spine were obtained. COMPARISON: 12/18/2017 FINDINGS: Normal anterior atlantoaxial articulation. Normal odontoid process. Normal cervical lordosis. There is multi-level endplate spondylosis. There is multi-level degenerative disc disease with multilevel disc space narrowing. There is multi-level osseous foraminal stenosis. The soft tissue structures are unremarkable. RAD/Cerv Spine 4 or 5 Views IMPRESSION: Diffuse degenerative disc disease. MRI may be useful. Electronically Signed: Brodie Best MD at 9:33 EDT , CC: Dr. Marycarmen Gregorio MD Explosives Mixer Operator: Signed Normal [facility] Comprehensive Metabolic Prof alon 02-05-2024 Albumin [Mass/Vol] 3.4 g/dL Normal 3.2-5.0 [facility] Comment on above: Order Comment: Order Date: 02/05/24 Order Info: 0786-1 - CMP Order Info: [id number] - LIPID Order Info: 3016-3 - TSH Performed By: #### L [id number], L500.4050, L500.4100 #### [facility] [address] [place], [address] Albumin/Globulin [Mass ratio] 1.0 {ratio} Normal 0.9-2.4 [facility] Comment on above: Order Comment: Order Date: 02/05/24 Order Info: 0786-1 - CMP Order Info: [id number] - LIPID Order Info: [id number] - TSH Performed By: #### L [id number], L500.4050, L500.4100 #### [facility] [facility] [address] [place], [address] ALK P 104 U/L Normal 45-117 [facility] Comment on above: Order Comment: Order Date: 02/05/24 Order Info: [id number] - CMP Order Info: [id number] - LIPID Order Info: [id number] - TSH Performed By: #### L 501.9520, L500.4050, L500.4100 #### [facility] [address] [place], [address] ALT [Catalytic activity/Vol] 28 U/L Normal 13-56 [facility] Comment on above: Order Comment: Order Date: 02/05/24 Order Info: [id number] - CMP Order Info: [id number] - LIPID Order Info: 3 - TSH Performed By: #### L 501.9520, L500.4050, L500.4100 #### [facility] [address] [place], [address] AST [Catalytic activity/Vol] 25 U/L Normal 15-37 [facility] Comment on above: Order Comment: Order Date: 02/05/24 Order Info: [id number] - CMP Order Info: [id number] - LIPID Order Info: 3 - TSH Performed By: #### L 501.9520, L500.4050, L500.4100 #### [facility] [address] [place], [address] Bilirubin [Mass/Vol] 0.60 mg/dL Normal 0.20-1.00 [facility] Comment on above: Order Comment: Order Date: 02/05/24 Order Info: [id number] - CMP Order Info: [id number] - LIPID Order Info: 3 - TSH Result Comment: For patients on eltrombopag therapy, use of Dimension [place] TBIL is not recommended. Performed By: #### L 501.9520, L500.4050, L500.4100 #### [facility] [address] [place], [address] BUN/CRE 25.5 RATIO High 10-20 [facility] Comment on above: Order Comment: Order Date: 02/05/24 Order Info: [id number] - CMP Order Info: [id number] - LIPID Order Info: [id number] - TSH Performed By: #### L 501.9520, L500.4050, L500.4100 #### [facility] [address] [place], [address] CA,Total 9.1 mg/dL Normal 8.5-10.1 [facility] Comment on above: Order Comment: Order Date: 02/05/24 Order Info: [id number] - CMP Order Info: - LIPID Order Info: [id number] - TSH Performed By: #### L 501.9520, L500.4050, L500.4100 #### [facility] [address] [place], [address] Chloride [Moles/Vol] 105 mmol/L Normal 98-107 [facility] Comment on above: Order Comment: Order Date: 02/05/24 Order Info: [id number] - CMP Order Info: - LIPID Order Info: [id number] - TSH Performed By: #### L 501.9520, L500.4050, L500.4100 #### [facility] [address] [place], [address] CO2 [Moles/Vol] 27.0 mmol/L Normal 21.0-32.0 [facility] Comment on above: Order Comment: Order Date: 02/05/24 Order Info: [id number] - CMP Order Info: - LIPID Order Info: [id number] - TSH Performed By: #### L 501.9520, L500.4050, L500.4100 #### [facility] [address] [place], [address] Creatinine [Mass/Vol] 1.02 mg/dL Normal 0.55-1.02 [facility] Comment on above: Order Comment: Order Date: 02/05/24 Order Info: [id number] - CMP Order Info: - LIPID Order Info: [id number] - TSH Result Comment: The validity of the calculated GFR GFRAA in patients over 70 years has not been determined. Clinical correlation is essential. Performed By: #### L 501.9520, L500.4050, L500.4100 #### [facility] [address] [place], [address] EST GFR - AA 67 mL/min Normal >60 [facility] Comment on above: Order Comment: Order Date: 02/05/24 Order Info: [id number]- - CMP Order Info: [id number] - LIPID Order Info: [id number] - TSH Result Comment: Afri can Mozambican GFR Calc Performed By: #### L 501.9520, L500.4050, L500.4100 #### [facility] [address] [place], [address] GAP 7 Normal 5-15 [facility] Comment on above: Order Comment: Order Date: 02/05/24 Order Info: [id number] - CMP Order Info: [id number] - LIPID Order Info: [id number] - TSH Performed By: #### L 501.9520, L500.4050, L500.4100 #### [facility] [address] [place], [address] GFR/1.73 sq M.predicted among non-blacks MDRD (S/P/Bld) [Vol rate/Area] 56 mL/min/{1.73_m2} Low >60 [facility] Comment on above: Order Comment: Order Date: 02/05/24 Order Info: [id number] - CMP Order Info: [id number] - LIPID Order Info: [id number] - TSH Result Comment: Non- GFR Calc Performed By: #### L 501.9520, L500.4050, L500.4100 #### [facility] [address] [place], [address] Globulin (S) [Mass/Vol] 3.3 g/dL Normal 2.2-4.2 [facility] Comment on above: Order Comment: Order Date: 02/05/24 Order Info: [id number]- - CMP Order Info: - LIPID Order Info: [id number] - TSH Performed By: #### L 501.9520, L500.4050, L500.4100 #### [facility] [address] [place], [address] Glucose [Mass/Vol] 144 mg/dL High 74-106 [facility] Comment on above: Order Comment: Order Date: 02/05/24 Order Info: [id number] - CMP Order Info: - LIPID Order Info: 3 - TSH Result Comment: Fast ing Glucose result greater than or equal to 126 mg/dL suggests DIABETES MELLITUS per A.D.A. criteria. Performed By: #### L 501.9520, L500.4050, L500.4100 #### [facility] [address] [place], [address] Potassium [Moles/Vol] 4.2 mmol/L Normal 3.5-5.1 [facility] Comment on above: Order Comment: Order Date: 02/05/24 Order Info: 0786 - CMP Order Info: - LIPID Order Info: [id number] - TSH Performed By: #### L 501.9520, L500.4050, L500.4100 #### [facility] [address] [place], [address] Sodium [Moles/Vol] 139 mmol/L Normal 136-145 [facility] Comment on above: Order Comment: Order Date: 02/05/24 Order Info: 0786 - CMP Order Info: [id number] - LIPID Order Info: 3 - TSH Performed By: #### L 501.9520, L500.4050, L500.4100 #### [facility] [address] [place], [address] T PROT 6.7 g/dL Normal 6.4-8.2 [facility] Comment on above: Order Comment: Order Date: 02/05/24 Order Info: [id number] - CMP Order Info: [id number] - LIPID Order Info: 3 - TSH Performed By: #### L 501.9520, L500.4050, L500.4100 #### [facility] [address] [place], [address] Urea nitrogen [Mass/Vol] 26 mg/dL High 7-18 [facility] Comment on above: Order Comment: Order Date: 02/05/24 Order Info: 07 - CMP Order Info: - LIPID Order Info: 3 - TSH Performed By: #### L 501.9520, L500.4050, L500.4100 #### [facility] [address] [place], [address] Lipid Profileon 02-05-2024 Cholesterol [Mass/Vol] 134 mg/dL Normal 200 [facility] Comment on above: Order Comment: Order Date: 02/05/24 Order Info: [id number] - CMP Order Info: - LIPID Order Info: 3 - TSH Result Comment: <200 mg/dL Desirable 200-240 mg/dL Borderline >240 mg/dL High Risk Performed By: #### L 501.9520, L500.4050, L500.4100 #### [facility] [address] [place], [address] Cholesterol in HDL [Mass/Vol] 43 mg/dL Normal [facility] Comment on above: Order Comment: Order Date: 02/05/24 Order Info: 07 - CMP Order Info: [id number] - LIPID Order Info: 3 - TSH Result Comment: The drugs N-Acetylcysteine and Metamizole may falsely depress this assay. Reference Range HDL <40 mg/dL Low HDL Cholesterol HDL >or= 60 mg/dL High HDL Cholesterol Performed By: #### L 501.9520, L500.4050, L500.4100 #### [facility] [address] [place], [address] Cholesterol in LDL [Mass/Vol] 50 mg/dL Normal 0-130 [facility] Comment on above: Order Comment: Order Date: 02/05/24 Order Info: [id number] - CMP Order Info: - LIPID Order Info: 6-3 - TSH Performed By: #### L 501.9520, L500.4050, L500.4100 #### [facility] [address] [place], [place], [address] Cholesterol in VLDL [Mass/Vol] 41 mg/dL High 5-40 [facility] Comment on above: Order Comment: Order Date: 02/05/24 Order Info: [id number] - CMP Order Info: - LIPID Order Info: 3 - TSH Performed By: #### L 501.9520, L500.4050, L500.4100 #### [facility] [address] [facility] [place], [place], [address] Triglyceride [Mass/Vol] 206 mg/dL High [facility] Comment on above: Order Comment: Order Date: 02/05/24 Order Info: [id number] - CMP Order Info: - LIPID Order Info: 3 - TSH Result Comment: The drugs N-Acetylcysteine and Metamizole may falsely depress this assay. Serum Triglycerides Reference Interval Normal <150 mg/dL Borderline high 150 - 199 mg/dL High 200 - 499 mg/dL Very High > or = 500 mg/dL Performed By: #### L 501.9520, L500.4050, L500.4100 #### [facility] [address] [facility] [place], [place], [address] Thyroid Stim Hormone (TSH)on 02-05-2024 TSH 1.480 uIU/mL Normal 0.358-3.740 [facility] Comment on above: Order Comment: Order Date: 02/05/24 Order Info: [id number] - CMP Order Info: [id number] - LIPID Order Info: [id number] - TSH Performed By: #### L 501.9520, L500.4050, L500.4100 #### [facility] [address] [place], [address] Basic Metabolic Profile (BMP )on 11-26-2023 BUN/CRE 23.1 RATIO High 10-20 [facility] Comment on above: Performed By: #### L 500.2500 #### [facility] [address] [place], [address] CA,Total 10.0 mg/dL Normal 8.5-10.1 [facility] Comment on above: Performed By: #### L 500.2500 #### [facility] [address] [place], [address] Chloride [Moles/Vol] 103 mmol/L Normal 98-107 [facility] Comment on above: Performed By: #### L 500.2500 #### [facility] [address] [place], [address] CO2 [Moles/Vol] 29.0 mmol/L Normal 21.0-32.0 [facility] Comment on above: Performed By: #### L 500.2500 #### [facility] [address] [place], [address] Creatinine [Mass/Vol] 1.08 mg/dL High 0.55-1.02 [facility] Comment on above: Result Comment: The validity of the calculated GFR GFRAA in patients over 70 years has not been determined. Clinical correlation is essential. Performed By: #### L 500.2500 #### [facility] [address] [place], [address] EST GFR - AA 63 mL/min Normal >60 [facility] Comment on above: Result Comment: Afri can [place] GFR Calc Performed By: #### L 500.2500 #### [facility] [address] [place], [address] GAP 8 Normal 5-15 [facility] Comment on above: Performed By: #### L 500.2500 #### [facility] [address] [place], [address] GFR/1.73 sq M.predicted among non-blacks MDRD (S/P/Bld) [Vol rate/Area] 52 mL/min/{1.73_m2} Low >60 [facility] Comment on above: Result Comment: Non- GFR Calc Performed By: #### L 500.2500 #### [facility] [address] [place], [address] Glucose [Mass/Vol] 135 mg/dL High 74-106 [facility] Comment on above: Result Comment: Fast ing Glucose result greater than or equal to 126 mg/dL suggests DIABETES MELLITUS per A.D.A. criteria. Performed By: #### L 500.2500 #### [facility] [address] [place], [address] Potassium [Moles/Vol] 4.3 mmol/L Normal 3.5-5.1 [facility] Comment on above: Performed By: #### L 500.2500 #### [facility] [address] [place], [address] Sodium [Moles/Vol] 140 mmol/L Normal 136-145 [facility] Comment on above: Performed By: #### L 500.2500 #### [facility] [address] [place], [address] Urea nitrogen [Mass/Vol] 25 mg/dL High 7-18 [facility] Comment on above: Performed By: #### L 500.2500 #### [facility] [address] [place], [address] Basophil percentageOrdered B y: Nadeem Gregorio on 07-28-2023 Chloride [Moles/Vol] 103 mmol/L 98-107 [facility] Cholesterol [Mass/Vol] 174 mg/dL <200 [facility] Comment on above: <200 mg/dL Desirable 200-240 mg/dL Borderline >240 mg/dL High Risk Glucose [Mass/Vol] 154 mg/dL 74-106 [facility] Comment on above: Fasting Glucose resu lt greater than or equal to 126 mg/dL suggests DIABETES MELLITUS per A.D.A. criteria. Potassium [Moles/Vol] 3.8 mmol/L 3.5-5.1 [facility] Sodium [Moles/Vol] 137 mmol/L 136-145 [facility] Triglyceride [Mass/Vol] 244 mg/dL <199 [facility] Comment on above: The drugs N-Acetylcy steine and Metamizole may falsely depress this assay.Serum Triglycerides Reference Interval Normal <150 mg/dL Borderline high 150 - 199 mg/dL High 200 - 499 mg/dL Very High > or = 500 mg/dL Laboratory - Chemistry and C hemistry - challengeOrdered By: Nadeem Gregorio on 07-28-2023 Cholesterol in HDL [Mass/Vol] 45 mg/dL >40 [facility] Comment on above: The drugs N-Acetylcy steine and Metamizole may falsely depress this assay. Reference Range HDL <40 mg/dL Low HDL Cholesterol HDL >or= 60 mg/dL High HDL Cholesterol Cholesterol in LDL [Mass/Vol] 80 mg/dL 0-130 [facility] CO2 [Moles/Vol] 30.0 mmol/L 21.0-32.0 [facility] Urea nitrogen/Creatinine [Mass ratio] 26.5 mg/mg 10-20 [facility] No Panel InformationOrdered By: Nadeem Gregorio on 07-28-2023 Estimated GFR (MDRD) Amer 67 mL/min >60 [facility] Comment on above: GFR Calc Estimated GFR (MDRD) Non-Af Amer 56 mL/min >60 [facility] Comment on above: Non- GFR Calc VLDL Cholesterol 49 mg/dL 5-40 [facility] Serum or plasma calcium felisa urement (mass/volume)Ordered By: Nadeem Gregorio on 07-28-2023 Calcium [Mass/Vol] 9.8 mg/dL 8.5-10.1 [facility] Serum or plasma creatinine m easurement (mass/volume)Ordered By: Nadeem Gregorio on 07-28-2023 Creatinine [Mass/Vol] 1.02 mg/dL 0.55-1.02 [facility] Comment on above: The validity of the calculated GFR & GFRAA in patients over 70 years has not been determined. Clinical correlation is essential. Serum or plasma thyroid stim ulating hormone (TSH) measurement (units/volume)Ordered By: Nadeem Gregorio on 07-28-2023 TSH Qn 2.14 uIU/mL 0.358-3.74 [facility] Serum or plasma urea nitroge n measurement (mass/volume)Ordered By: Nadeem Gregorio on 07-28-2023 Urea nitrogen [Mass/Vol] 27 mg/dL 7-18 [facility] Thin prep Papanicolaou smear with manual screeningOrdered By: Nadeem Gregorio on 07-28-2023 Thin prep Papanicolaou smear with manual screening 4 -15 [facility] Basophil percentageOrdered B y: Nadeem Gregorio on 02-06-2023 Bilirubin [Mass/Vol] 0.50 mg/dL 0.20-1.00 [facility] Comment on above: For patients on eltr ombopag therapy, use of Dimension [place] TBIL is not recommended. Chloride [Moles/Vol] 105 mmol/L 98-107 [facility] Cholesterol [Mass/Vol] 141 mg/dL <200 [facility] Comment on above: <200 mg/dL Desirable 200-240 mg/dL Borderline >240 mg/dL High Risk Glucose [Mass/Vol] 129 mg/dL 74-106 [facility] Comment on above: Fasting Glucose resu lt greater than or equal to 126 mg/dL suggests DIABETES MELLITUS per A.D.A. criteria. Potassium [Moles/Vol] 3.7 mmol/L 3.5-5.1 [facility] Protein [Mass/Vol] 6.9 g/dL 6.4-8.2 [facility] Sodium [Moles/Vol] 141 mmol/L 136-145 [facility] Triglyceride [Mass/Vol] 242 mg/dL <199 [facility] Comment on above: The drugs N-Acetylcy steine and Metamizole may falsely depress this assay.Serum Triglycerides Reference Interval Normal <150 mg/dL Borderline high 150 - 199 mg/dL High 200 - 499 mg/dL Very High > or = 500 mg/dL Laboratory - Chemistry and C hemistry - challengeOrdered By: Nadeem Gregorio on 02-06-2023 ALP [Catalytic activity/Vol] 98 U/L 45-117 [facility] ALT [Catalytic activity/Vol] 38 U/L 13-56 [facility] CO2 [Moles/Vol] 30.0 mmol/L 21.0-32.0 [facility] Globulin (S) [Mass/Vol] 3.4 g/dL 2.2-4.2 [facility] Urea nitrogen/Creatinine [Mass ratio] 30.1 mg/mg 10-20 [facility] No Panel InformationOrdered By: Nadeem Gregorio on 02-06-2023 Estimated GFR (MDRD) Amer 67 mL/min >60 [facility] Comment on above: GFR Calc Estimated GFR (MDRD) Non-Af Amer 55 mL/min >60 [facility] Comment on above: Non- GFR Calc Thyroid Stimulating Hormone (TSH) 2.71 uIU/mL 0.358-3.74 [facility] Serum or plasma albumin felisa urement (mass/volume)Ordered By: Nadeem Gregorio on 02-06-2023 Albumin [Mass/Vol] 3.5 g/dL 3.2-5.0 [facility] Serum or plasma albumin/glob ulin mass ratioOrdered By: Nadeem Gregorio on 02-06-2023 Albumin/Globulin [Mass ratio] 1.0 {ratio} 0.9-2.4 [facility] Serum or plasma calcium felisa urement (mass/volume)Ordered By: Nadeem Gregorio on 02-06-2023 Calcium [Mass/Vol] 9.4 mg/dL 8.5-10.1 [facility] Serum or plasma cholesterol in HDL measurement (mass/volume)Ordered By: Nadeem Gregorio on 02-06-2023 Cholesterol in HDL [Mass/Vol] 42 mg/dL >40 [facility] Comment on above: The drugs N-Acetylcy steine and Metamizole may falsely depress this assay. Reference Range HDL <40 mg/dL Low HDL Cholesterol HDL >or= 60 mg/dL High HDL Cholesterol Serum or plasma cholesterol in VLDL measurement (mass/volume)Ordered By: Nadeem Gregorio on 02-06-2023 Cholesterol in VLDL [Mass/Vol] 48 mg/dL 5-40 [facility] Serum or plasma creatinine m easurement (mass/volume)Ordered By: Nadeem Gregorio on 02-06-2023 Creatinine [Mass/Vol] 1.03 mg/dL 0.55-1.02 [facility] Comment on above: The validity of the calculated GFR & GFRAA in patients over 70 years has not been determined. Clinical correlation is essential. Serum or plasma low density lipoprotein (LDL) cholesterol measurement (mass/volume)Ordered By: Nadeem Gregorio on 02-06-2023 Cholesterol in LDL [Mass/Vol] 51 mg/dL 0-130 [facility] Serum or plasma urea nitroge n measurement (mass/volume)Ordered By: Nadeem Gregorio on 02-06-2023 Urea nitrogen [Mass/Vol] 31 mg/dL 7-18 [facility] Thin prep Papanicolaou smear with manual screeningOrdered By: Nadeem Gregorio on 02-06-2023 Thin prep Papanicolaou smear with manual screening 27 U/L 15-37 [facility] Thin prep Papanicolaou smear with manual screening 6 5-15 [facility] CNOVon 10-01-2022 CNOV Office Visit (GENSWS ) ROSEMARY SCHROEDER ([id number]) 1945 F Date Time Provider Department 10/01/22 2:30 PM AILYN STOCKTON During your visit today, we recorded the following information about you: Temperature Pulse Blood pressure 97.4 degrees 91/minute 143/76 Ailyn Stockton PA-C 10/01/2022 4:43 PM Signed FOLLOW UP VISIT - ENDOSCOPY NAME: Rosemary Perdomo [facility] NO.: [id number] DATE OF SERVICE: 10/01/2022 : 1945 REFERRING PHYSICIAN: Christopher B Ranney, MD Rosemary is a patient I am [...] which included preparing to see the patient, [id number] patient care, completing clinical documentation, obtaining and/or reviewing separately obtained history, counseling and educating the patient/family/caregi stella, independently interpreting results (not separately reported), and communicating results to the patient/family/caregi stella. TIM Cardoso PA-C 10/01/2022 3:17 PM Addendum -Recommend bland diet (bananas, rice, applesauce, toast, [...] to your office visit today with the [facility] General Surgeons. INSTRUCTIONS FOLLOWING A NORMAL COLONOSCOPY [...] often cure these issues without needing other medicatio (more content not included)... Normal [facility] SURGICAL PATHOLOGYon 023 Case Report Surgical Pathology Report Case: [id number] Authorizing Provider: Myles Burnham MD Collected: 09/19/2022 12:13 PM Ordering Location: Ambulatory Surgery Received: 09/19/2022 02:40 PM Pathologist: Robinson Terry MD Specimens: A) - DUODENUM BIOPSY B) - ANTRUM (STOMACH) BIOPSY, antral bx for H/H C) - ESOPHAGUS BIOPSY, distal esophagus bx D) - ESOPHAGUS MID BIOPSY [facility] FINAL DIAGNOSIS A. Duodenum, biopsy: - Duodenal [...] - No evidence of esophagitis or eosinophilia. [facility] Gross Description A. DUODENUM BIOPSY Received in formalin is one piece of hylton, soft tissue measuring 0.3 x 0.2 x 0.2 cm. Totally submitted in one cassette. B. ANTRUM (STOMACH) BIOPSY Received in formalin is one piece of hylton, soft tissue measuring 0.3 x 0.2 x 0.2 cm. Totally submitted in one cassette. C. ESOPHAGUS BIOPSY Received in formalin are multiple pieces of hylton, soft tissue aggregating to 0.7 x 0.2 x 0.2 cm. Totally submitted in one cassette. D. ESOPHAGUS MID BIOPSY Received in formalin is one piece of hylton, soft tissue measuring 0.5 x 0.3 x 0.1 cm. Totally submitted in one cassette. Gross examination performed at [facility], [address] [place] [address] 09/19/2022 10:36 PM [facility] Performing Lab Diagnostic interpretation performed at [facility], [address] [place] [address] CLIA# [id number] Willower: Roger Valiente M.D. [facility] COLONOSCOPY SCREENINGon 08-23 [facility] Colonoscopyon 09-19-2022 Colonoscopy [place] [facility] Gastrointestinal Endoscopy Patient Name: Rosemary Schroeder Procedure Date: 09/19/2022 12:03 PM Date of : 1945 Admit Type: Outpatient Age: 76 Gender: Female Note Status: Finalized Procedure: Colonoscopy Indications: High risk colon cancer surveillance: Personal history of colonic polyps Providers: Myles Burnham MD Patient Profile: This is a 76 year old female. Refer to note in patient chart for documentation of history and physical. Last Colonoscopy: August 2016. Referring Physician: Ailyn Stockton (pa) (Referring ), Marycarmen Gregorio MD (Referring MD) Medicines: Fentanyl 100 micrograms IV, Midazolam 5 mg IV, Diphenhydramine 50 mg IV Complications: No immediate complications. Estimated blood loss: None. Requesting Provider: Procedure: Pre-Anesthesia Assessment: - Prior to the procedure, a History and Physical was performed, and patient medications and allergies were reviewed. The patient's tolerance of previous anesthesia was also reviewed. The risks and benefits of the procedure and the sedation options and risks were discussed with the patient. All questions were answered, and informed consent was obtained. Prior Anticoagulants: The patient has taken no anticoagulant or antiplatelet agents. ASA Grade Assessment: III - A patient with severe systemic disease. After reviewing the risks and benefits, the patient was deemed in satisfactory condition to undergo the procedure. After I obtained informed consent, the scope was passed under direct vision. Throughout the procedure, the patient's blood pressure, pulse, and oxygen saturations were monitored continuously. The Colonoscope was introduced through the anus and advanced to 3 cm into the ileum. The colonoscopy was performed without difficulty. The patient tolerated the procedure well. The quality of the bowel preparation was good. The terminal ileum, ileocecal valve, appendiceal orifice, and rectum were photographed. Moderate Sedation: The administration of moderate sedation was initiated at 12:09 PM. Findings: The perianal and digital rectal examinations were normal. Non-bleeding internal hemorrhoids were found during retroflexion. The hemorrhoids were mild and small. A few small-mouthed diverticula were found in the sigmoid colon. The terminal ileum appeared normal. The exam was otherwise without abnormality. Impression: - Non-bleeding internal hemorrhoids. - Diverticulosis in the sigmoid colon. - The examined portion of the ileum was normal. - The examination was otherwise normal. - No specimens collected. Recommendation: - Patient has a contact number available for emergencies. The signs and symptoms of potential delayed complications were discussed with the patient. Return to normal activities tomorrow. Written discharge instructions were provided to the patient. - Resume previous diet. - Continue present medications. - Repeat colonoscopy in 10 years for screening purposes. - Return to physician acute care assistant in 1 week. Procedure Code(s): --- Professional --- 29348, Colonoscopy, flexible; diagnostic, including collection of specimen(s) by brushing or washing, when performed (separate procedure) Diagnosis Code(s): --- Professional --- Z12.11, Encounter for screening for malignant neoplasm of colon Z86.010, Personal history of colonic polyps K64.8, Other hemorrhoids K57.30, Diverticulosis of large intestine without perforation or abscess without bleeding CPT copyright 2020 [employer]. All rights reserved. The codes documented in this report are preliminary and upon doctor of optometry review may be revised to meet current compliance requirements. Attending Participation: I personally performed the entire procedure. Scope In: 12:19:05 PM Scope Out: 12:33:18 PM MD Myles Lee MD 09/19/2022 12:39:46 PM This report has been signed electronically by Myles Burnham MD Number of Addenda: 0 Note Initiated On: 09/19/2022 12:03 PM Estimated Blood Loss: Estimated blood loss: none. Normal [facility] EGD DIAGNOSTICon 09-19-2022 [facility] HISTORY PHYSICALon HISTORY PHYSICAL HNO ID: [id number] Author: Myles Burnham MD Service: General Surgery Author Type: Physician Type: HANDP Filed: 09/19/2022 12:06 PM Note Text: HISTORY AND PHYSICAL Rosemary [...] SPEC WHEN PFRMD 09/10/2016 repeat 10 years ESOPHAGOGASTRODUODENO SCOPY TRANSORAL DIAGNOSTIC 08/06/13 EGD ESOPHAGOGASTRODUODENO SCOPY TRANSORAL DIAGNOSTIC 09/10/2016 repeat 3 yrs PAST SURGICAL HISTORY OF appendectomy PAST SURGICAL HISTORY OF Hysterectomy PAST SURGICAL HISTORY OF Breast biopsy PAST SURGICAL HISTORY OF carpel tunnel PAST SURGICAL HISTORY OF gallbladder PAST SURGICAL HISTORY OF Moles removed from back PAST SURGICAL HISTORY OF 2007 Left breast lesion removal- Dr. Burnham PAST SURGICAL HISTORY OF Bilateral 2016 Cataract removal- Dr. Mcclellan, [facility] CURRENT MEDICATIONS Current Outpatient Medications Medication Sig [...] stools, NOTES hemorrhoids, denies bleeding from rectum, martina (more content not included)... Normal [facility] NURSING PROGon 09-19-2022 NURSING PROG HNO ID: [id number] Author: Priyanka Marie RN Service: ? Author Type: Registered Nurse Type: Nursing Progress Note Filed: 09/19/2022 1:24 PM Note Text: Patient states that pain is resolved to 3/10 in abdomen and is able to eat and drink what has been provided. Patient states she is ready for discharge. Patient's abdomen appears to be nondistended and soft to palpation. Normal [facility] NURSING PROG HNO ID: [id number] Author: Priyanka Marie RN Service: ? Author Type: Registered Nurse Type: Nursing Progress Note Filed: 09/19/2022 1:14 PM Note Text: Patient stated pain has decreased to 6/10 in abdomen. Patient in bathroom and is able to pass gas and belch. Normal [facility] NURSING PROG HNO ID: [id number] Author: Priyanka Marie RN Service: ? Author Type: Registered Nurse Type: Nursing Progress Note Filed: 09/19/2022 1:13 PM Note Text: Patient arrived laying on left side. Patient states that she is having 7/10 sharp intermittent pain. Patient encouraged to pass gas and belch. Patient's abdomen appears to be slightly distended but soft to palpation. Priyanka Marie RN Normal [facility] SURGICAL PATHOLOGYon 023 CASE REPORT Normal [facility] Comment on above: Order Comment: Speci men Type: TISSUE SPECIMEN Ordering Facility: [facility] Address: [address] [place], [place] [id number] Result Comment: Surg ical Pathology Report Case: [id number] Authorizing Provider: Myles Burnham MD Collected: 09/19/2022 12:13 PM Ordering Location: Ambulatory Surgery Received: 09/19/2022 02:40 PM Pathologist: Robinson Terry MD Specimens: A) - DUODENUM BIOPSY B) - ANTRUM (STOMACH) BIOPSY, antral bx for H/H C) - ESOPHAGUS BIOPSY, distal esophagus bx D) - ESOPHAGUS MID BIOPSY Performed By: #### S #### [facility] CLIA [id number] [address] [place], [place] [address]K [address] [place] OF [facility] FINAL DIAGNOSIS Normal [facility] Comment on above: Order Comment: Speci men Type: TISSUE SPECIMEN Ordering Facility: [facility] Address: [address] [place], [place] [id number] Result Comment: A. D uodenum, biopsy: - Duodenal mucosa with no significant [...] - No evidence of esophagitis or eosinophilia. Performed By: #### S #### [facility] CLIA [id number] [address] [place] [address] [facility] FINAL PERFORMING LAB Normal [facility] Comment on above: Order Comment: Speci men Type: TISSUE SPECIMEN Ordering Facility: [facility] Address: [address] [place] [address] Result Comment: Diag nostic interpretation performed at [facility], [address] [place] [address] CLIA# [id number] Willower: Roger Valiente M.D. Performed By: #### S #### [facility] CLIA [id number] [address] [place] [address] GROSS DESCRIPTION Normal [facility] Comment on above: Order Comment: Speci men Type: TISSUE SPECIMEN Ordering Facility: [facility] Address: [address] [address] Result Comment: A. D UODENUM BIOPSY Received in formalin is one piece of hylton, soft tissue measuring 0.3 x 0.2 x 0.2 cm. Totally submitted in one cassette. B. ANTRUM (STOMACH) BIOPSY Received in formalin is one piece of hylton, soft tissue measuring 0.3 x 0.2 x 0.2 cm. Totally submitted in one cassette. C. ESOPHAGUS BIOPSY Received in formalin are multiple pieces of hylton, soft tissue aggregating to 0.7 x 0.2 x 0.2 cm. Totally submitted in one cassette. D. ESOPHAGUS MID BIOPSY Received in formalin is one piece of hylton, soft tissue measuring 0.5 x 0.3 x 0.1 cm. Totally submitted in one cassette. Gross examination performed at [facility], [facility] [address] 09/19/2022 10:36 PM Performed By: #### S #### [facility] CLIA [id number] [address] [place] [address] OF MICHELLE Upper GI endoscopyon 09-19-2 023 Upper GI endoscopy Maya [facility] Gastrointestinal Endoscopy Patient Name: Rosemary Schroeder Procedure Date: 09/19/2022 12:03 PM Date of : 1945 Admit Type: Outpatient Age: 76 Gender: Female Note Status: Finalized Procedure: Upper GI endoscopy Indications: Epigastric abdominal pain Providers: Myles Burnham MD Patient Profile: This is a 76 year old female. Refer to note in patient chart for documentation of history and physical. Referring Physician: Ailyn Stockton (pa) (Referring MD), Marycarmen Gregorio MD (Referring MD) Medicines: Fentanyl 100 micrograms IV, Midazolam 5 mg IV, Diphenhydramine 50 mg IV, Benzocaine spray Complications: No immediate complications. Estimated blood loss: Minimal. Requesting Provider: Procedure: Pre-Anesthesia Assessment: - Prior to the procedure, a History and Physical was performed, and patient medications and allergies were reviewed. The patient's tolerance of previous anesthesia was also reviewed. The risks and benefits of the procedure and the sedation options and risks were discussed with the patient. All questions were answered, and informed consent was obtained. Prior Anticoagulants: The patient has taken no anticoagulant or antiplatelet agents. ASA Grade Assessment: III - A patient with severe systemic disease. After reviewing the risks and benefits, the patient was deemed in satisfactory condition to undergo the procedure. After obtaining informed consent, the endoscope was passed under direct vision. Throughout the procedure, the patient's blood pressure, pulse, and oxygen saturations were monitored continuously. The Endoscope was introduced through the mouth, and advanced to the second part of duodenum. The upper GI endoscopy was accomplished without difficulty. The patient tolerated the procedure well. Moderate Sedation: The administration of moderate sedation was initiated at 12:09 PM. Findings: The Z-line was variable and was found 35 cm from the incisors. Biopsies were taken with a cold forceps for histology. Localized mild inflammation characterized by erythema was found in the prepyloric region of the stomach. Biopsies were taken with a cold forceps for Helicobacter pylori testing. The examined duodenum was normal. Biopsies were taken with a cold forceps for histology. Impression: - Z-line variable, 35 cm from the incisors. Biopsied. - Gastritis. Biopsied. - Normal examined duodenum. Biopsied. Recommendation: - Patient has a contact number available for emergencies. The signs and symptoms of potential delayed complications were discussed with the patient. Return to normal activities tomorrow. Written discharge instructions were provided to the patient. - Resume previous diet. - Continue present medications. - Await pathology results. - Repeat upper endoscopy in 3 years for surveillance. - Return to physician acute care assistant in 1 week. Procedure Code(s): --- Professional --- 97892, Esophagogastroduodeno scopy, flexible, transoral; with biopsy, single or multiple Diagnosis Code(s): --- Professional --- K22.89, Other specified disease of esophagus K29.70, Gastritis, unspecified, without bleeding R10.13, Epigastric pain CPT copyright 2020 [employer]. All rights reserved. The codes documented in this report are preliminary and upon doctor of optometry review may be revised to meet current compliance requirements. Attending Participation: I personally performed the entire procedure. Scope In: 12:12:33 PM Scope Out: 12:16:14 PM MD Myles Lee MD 09/19/2022 12:36:44 PM This report has been signed electronically by Myles Burnham MD Number of Addenda: 0 Note Initiated On: 09/19/2022 12:03 PM Estimated Blood Loss: Estimated blood loss was minimal. Normal [facility] CNOVon 08-23-2022 CNOV Office Visit (GENSWS ) ROSEMARY SCHROEDER ([id number]) 1945 F Date Time Provider Department 08/23/22 8:30 AM AILYN STOCKTON During your visit today, we recorded the following information about you: Temperature Pulse Blood pressure Weight 97.6 degrees 89/minute 136/88 92 kg Height 1.575 m Tammy Ty LPN 08/23/2022 8:40 AM Signed [...] last Mammogram screening? 2022 Last Colonoscopy: 2015 FÉLIX Davis PA-C 09/03/2022 12:42 PM Signed HISTORY AND PHYSICAL Rosemary Schroeder 1945 REFERRING [...] SPEC WHEN PFRMD 09/10/2016 repeat 10 years ESOPHAGOGASTRODUODENO SCOPY TRANSORAL DIAGNOSTIC 08/06/13 EGD ESOPHAGOGASTRODUODENO SCOPY TRANSORAL DIAGNOSTIC 09/10/2016 repeat 3 yrs PAST SURGICAL HISTORY OF appendectomy PAST SURGICAL HISTORY OF Hysterectomy PAST SURGICAL HISTORY OF Breast biopsy PAST SURGICAL HISTORY OF carpel tunnel PAST SURGICAL HISTORY OF gallbladder PAST SURGICAL HISTORY OF Moles removed from back PAST SURGICAL HISTORY OF 2007 Left breast lesion removal- Dr. Burnham PAST SURGICAL HISTORY OF Bilateral 2016 Cataract removal- Dr. Mcclellan, [facility] Current Outpatient Medications Medication Sig atenolol (TENORMIN) 50 mg tablet Take 25 mg by mouth once daily. pantoprazole DR (PROTONIX) 40 mg tablet Take 40 mg by mouth once daily. glimepiride (AMARYL) 2 mg tablet Take 2 mg by mouth daily with breakfast. BIOFLAV,LEMON/VIT BCOMP,C (LIPO-FLAVONOID PLUS ORAL) Take by mouth. diclofenac, EC, 75 mg EC tablet Take 75 mg by mouth twice vidya (more content not included)... Normal [facility] Basophil percentageOrdered B y: Dr. Gregorio on 07-02-2022 Chloride [Moles/Vol] 102 mmol/L 98-107 [facility] Glucose [Mass/Vol] 129 mg/dL 74-106 [facility] Comment on above: Fasting Glucose resu lt greater than or equal to 126 mg/dL suggests DIABETES MELLITUS per A.D.A. criteria. Potassium [Moles/Vol] 3.7 mmol/L 3.5-5.1 [facility] Sodium [Moles/Vol] 142 mmol/L 136-145 [facility] Laboratory - Chemistry and C hemistry - challengeOrdered By: Dr. Gregorio on 07-02-2022 CO2 [Moles/Vol] 33.0 mmol/L 21.0-32.0 [facility] Urea nitrogen/Creatinine [Mass ratio] 26.7 mg/mg 10-20 [facility] No Panel InformationOrdered By: Dr. Gregorio on 07-02-2022 Estimated GFR (MDRD) Amer 65 mL/min >60 [facility] Comment on above: GFR Calc Estimated GFR (MDRD) Non-Af Amer 54 mL/min >60 [facility] Comment on above: Non- GFR Calc Serum or plasma calcium felisa urement (mass/volume)Ordered By: Dr. Gregorio on 07-02-2022 Calcium [Mass/Vol] 9.6 mg/dL 8.5-10.1 [facility] Serum or plasma creatinine m easurement (mass/volume)Ordered By: Dr. Gregorio on 07-02-2022 Creatinine [Mass/Vol] 1.05 mg/dL 0.55-1.02 [facility] Comment on above: The validity of the calculated GFR & GFRAA in patients over 70 years has not been determined. Clinical correlation is essential. Serum or plasma urea nitroge n measurement (mass/volume)Ordered By: Dr. Gregorio on 07-02-2022 Urea nitrogen [Mass/Vol] 28 mg/dL -18 [facility] Thin prep Papanicolaou smear with manual screeningOrdered By: Dr. Gregorio on 07-02-2022 Thin prep Papanicolaou smear with manual screening 7 5-15 [facility] Basophil percentageon 2021 Bilirubin [Mass/Vol] 0.70 mg/dL 0.20-1.00 [facility] Work Phone: Comment on above: For patients on eltr ombopag therapy, use of Dimension [place] TBIL is not recommended. Chloride [Moles/Vol] 103 mmol/L 98-107 [facility] Work Phone: Glucose [Mass/Vol] 145 mg/dL 74-106 [facility] Work Phone: Comment on above: Fasting Glucose resu lt greater than or equal to 126 mg/dL suggests DIABETES MELLITUS per A.D.A. criteria. Potassium [Moles/Vol] 3.4 mmol/L 3.5-5.1 [facility] Work Phone: Protein [Mass/Vol] 7.1 g/dL 6.4-8.2 [facility] Work Phone: Sodium [Moles/Vol] 140 mmol/L 136-145 [facility] Work Phone: WBC (Bld) [#/Vol] 9.5 10*3/uL 4.4-11.0 [facility] Work Phone: Blood erythrocytes count (nu mber/volume)on 11-28-2021 RBC (Bld) [#/Vol] 4.34 10*6/uL 4.2-5.4 [facility] Work Phone: Blood hemoglobin measurement (mass/volume)on 11-28-2021 Hemoglobin (Bld) [Mass/Vol] 13.3 g/dL 12.0-15.0 [facility] Work Phone: Blood platelet mean volumeon 11-28-2021 Platelet mean volume (Bld) [Entitic vol] 9.4 fL 6.2-12.0 [facility] Work Phone: Determination of erythrocyte mean corpuscular volume (MCV)on 11-28-2021 MCV (RBC) [Entitic vol] 96.3 fL 81-99 [facility] Work Phone: Erythrocyte sedimentation ra evan 11-28-2021 ESR (Bld) [Velocity] 10 mm/h 0-30 [facility] Work Phone: Hematocrit Auto (Bld) [Volum e fraction]on 11-28-2021 Hematocrit (Bld) [Volume fraction] 41.8 % 37-47 [facility] Work Phone: Laboratory - Chemistry and C hemistry - challengeon 11-28-2021 ALP [Catalytic activity/Vol] 83 U/L 45-117 [facility] Work Phone: ALT [Catalytic activity/Vol] 31 U/L 13-56 [facility] Work Phone: CO2 [Moles/Vol] 30.0 mmol/L 21.0-32.0 [facility] Work Phone: Globulin (S) [Mass/Vol] 3.5 g/dL 2.2-4.2 [facility] Work Phone: Urea nitrogen/Creatinine [Mass ratio] 25.2 mg/mg 10-20 [facility] Work Phone: Laboratory - Hematology and Cell countson 11-28-2021 Erythrocyte distribution width (RBC) [Entitic vol] 44.5 fL 35.1-43.9 [facility] Work Phone: Erythrocyte distribution width (RBC) [Ratio] 12.5 % 11.6-14.6 [facility] Work Phone: MCH (RBC) [Entitic mass] 30.6 pg 27.0-32.0 [facility] Work Phone: MCHC Auto (RBC) [Mass/Vol]on 11-28-2021 MCHC (RBC) [Mass/Vol] 31.8 g/dL 32-36 [facility] Work Phone: No Panel Informationon 11-28 Anti-Gliadin IgA Antibody 3 units [facility] Work Phone: Comment on above: Negative 0 - 19 Weak Positive 20 - 30 Moderate to Strong Positive >30 Anti-Gliadin IgG Antibody 2 units [facility] Work Phone: Comment on above: Negative 0 - 19 Weak Positive 20 - 30 Moderate to Strong Positive >30 Endomysial IgA Antibody Negative Negative [facility] Work Phone: Estimated GFR (MDRD) Amer 59 mL/min >60 [facility] Work Phone: Comment on above: GFR Calc Estimated GFR (MDRD) Non-Af Amer 49 mL/min >60 [facility] Work Phone: Comment on above: Non- GFR Calc Thyroid Stimulating Hormone (TSH) 2.42 uIU/mL 0.358-3.74 [facility] Work Phone: Tissue Transglutaminase IgG Ab <2 U/mL [facility] Work Phone: Comment on above: Negative 0 - 5 Weak Positive 6 - 9 Positive >9 Vitamin D 25-Hydroxy 34.7 ng/mL [facility] Work Phone: Comment on above: Vitamin D 25(OH) Sta tus Range Deficiency <20 ng/mL (50nmol/L) Insufficiency 20 - 30 ng/mL (50 - 75 nmol/L) Sufficiency 30 - 100 ng/mL (75 - 250 nmol/L) Toxicity >100 ng/mL (>250 nmol/L) Platelets bldon 11-28-2021 Platelets (Bld) [#/Vol] 317 10*3/uL 150-450 [facility] Work Phone: Serum IgA measurement (units /volume)on 11-28-2021 IgA Qn (S) 191 mg/dL [facility] Work Phone: Comment on above: Performed at: [address] [id number] Director: Myron Spence PhD, Phone: [phone] Serum or plasma albumin felisa urement (mass/volume)on 11-28-2021 Albumin [Mass/Vol] 3.6 g/dL 3.2-5.0 [facility] Work Phone: Serum or plasma albumin/glob ulin mass ratioon 11-28-2021 Albumin/Globulin [Mass ratio] 1.0 {ratio} 0.9-2.4 [facility] Work Phone: Serum or plasma calcium felisa urement (mass/volume)on 11-28-2021 Calcium [Mass/Vol] 9.4 mg/dL 8.5-10.1 [facility] Work Phone: Serum or plasma creatinine m easurement (mass/volume)on 11-28-2021 Creatinine [Mass/Vol] 1.15 mg/dL 0.55-1.02 [facility] Work Phone: Comment on above: The validity of the calculated GFR & GFRAA in patients over 70 years has not been determined. Clinical correlation is essential. Serum or plasma urea nitroge n measurement (mass/volume)on 11-28-2021 Urea nitrogen [Mass/Vol] 29 mg/dL 7-18 [facility] Work Phone: Serum tissue transglutaminas e IgA antibody assay (units/volume)on 11-28-2021 tTG IgA Qn (S) <2 U/mL [facility] Work Phone: Comment on above: Negative 0 - 3 Weak Positive 4 - 10 Positive >10 Tissue Transglutaminase (tTG) has been identified as the endomysial antigen. Studies have demonstr- ated that endomysial IgA antibodies have over 99% specificity for gluten sensitive enteropathy. Thin prep Papanicolaou smear with manual screeningon 11-28-2021 Thin prep Papanicolaou smear with manual screening 26 U/L 15-37 [facility] Work Phone: Thin prep Papanicolaou smear with manual screening 7 5-15 [facility] Work Phone: Vital Signs Date Time Vital Sign Value Performing Clinician Faci lity 10-01-2022 14:38-0400 Body temperature 97.39 [degF] Ailyn Stockton PA-C Work Phone: [facility] 10-01-2022 14:38-0400 Diastolic blood pressure 76 mm[Hg] Ailyn Mahin PA-C Work Phone: [facility] 10-01-2022 14:38-0400 Heart rate 91 /min Ailyn Mahin PA-C Work Phone: [facility] 10-01-2022 14:38-0400 SaO2% (BldA) [Mass fraction] 96 % Ailyn Mahin PA-C Work Phone: [facility] 10-01-2022 14:38-0400 Systolic blood pressure 143 mm[Hg] Ailyn Mahin PA-C Work Phone: [facility] 09-19-2022 13:10-0400 Diastolic blood pressure 60 mm[Hg] Myles Burnham MD Work Phone: [facility] 09-19-2022 13:10-0400 Heart rate 62 /min Myles Burnham MD Work Phone: [facility] 09-19-2022 13:10-0400 Respiratory rate 16 /min Myles Burnham MD Work Phone: [facility] 09-19-2022 13:10-0400 SaO2% (BldA) [Mass fraction] 95 % Myles Burnham MD Work Phone: [facility] 09-19-2022 13:10-0400 Systolic blood pressure 141 mm[Hg] Myles Burnham MD Work Phone: [facility] 09-19-2022 11:11-0400 Body temperature 97.81 [degF] Myles Burnham MD Work Phone: [facility] 08-23-2022 08:33-0500 Body height 157.5 cm Ailyn Mahin PA-C Work Phone: [facility] 08-23-2022 08:33-0500 Body temperature 97.59 [degF] Ailyn Sh[place] PA-C Work Phone: [facility] 08-23-2022 08:33-0500 Body weight 91.99 kg Ailyn Mahin PA-C Work Phone: [facility] 08-23-2022 08:33-0500 Diastolic blood pressure 88 mm[Hg] Ailyn Mahin PA-C Work Phone: [facility] 08-23-2022 08:33-0500 Heart rate 89 /min Ailyn Mahin PA-C Work Phone: [facility] 08-23-2022 08:33-0500 SaO2% (BldA) [Mass fraction] 97 % Ailyn Shanor[place] PA-C Work Phone: [facility] 08-23-2022 08:33-0500 Systolic blood pressure 136 mm[Hg] Ailyn Mahin PA-C Work Phone: [facility] Encounters Encounter Date Encounter Type Care Provider Facility Start: 08-25-2024 End: 08-25-[address] Marycarmen Gregorio MD Work Phone: [facility] Work Phone: Start: 08-25-2024 End: 08-25-[address] Marycarmen Gregorio MD -[facility] Work Phone: Start: 08-25-2024 End: 08-25-2024 ambulatory Marycarmen Gregorio Facility:[facility] Start: 08-17-2024 End: 08-17-[address] Marycarmen Gregorio MD Work Phone: [facility] Work Phone: Start: 08-17-2024 End: 08-17-[address] Marycarmen Gregorio MD -[facility] Start: 08-17-2024 End: 08-17-2024 ambulatory Marycarmen Gregorio Facility:[facility] Start: 02-05-2024 End: 02-05-2024 ambulatory Marycarmen Gregorio Facility:[facility] Start: 11-26-2023 End: 11-26-2023 ambulatory Marycarmen Gregorio Facility:[facility] Start: 11-01-2023 ambulatory Marycarmen Gregorio Faci lity:[facility] Start: 10-16-2023 End: 10-21-2023 [facility] Work Phone: Start: 10-16-2023 End: 10-21-2023 Discharged Recurring [facility]Nutritional Services Work Phone: Start: 08-25-2023 End: 08-25-2023 ambulatory [facility] Work Phone: Start: 08-25-2023 End: 08-25-2023 Patient encounter procedure [facility]Outpatient Breast Imaging Work Phone: Start: 07-28-2023 End: 07-28-2023 Patient encounter procedure [facility] Start: 06-26-2023 End: 06-26-2023 ambulatory [facility] Work Phone: Start: 06-26-2023 End: 06-26-2023 Discharged Recurring [facility]-Physical Therapy Work Phone: Start: 05-01-2023 End: 05-01-2023 ambulatory [facility] Work Phone: Start: 05-01-2023 End: 05-01-2023 [facility] encounter [facility] Work [facility]: Start: 02-06-2023 End: 02-06-2023 ambulatory [facility] Work Phone: Start: 02-06-2023 End: 02-06-2023 Patient encounter procedure [facility] Start: 10-01-2022 End: 10-02-2022 ambulatory MARYCARMEN GREGORIO Facility:[facility] Start: 10-01-2022 End: 10-01-2022 Patient encounter procedure Ailyn Stockton PA-C Work Phone: General Surgery Comment on above: History of gastritis (Primary Dx); History of colonic polyps; Diverticulosis; Hemorrhoids, unspecified hemorrhoid type; Current use of proton pump inhibitor Start: 09-19-2022 End: 09-19-2022 [facility] Start: 09-19-2022 End: 09-19-2022 Subsequent hospital visit by physician Myles Burnham MD Work Phone: Ambulatory Surgery Comment on above: Stomach pain [R10.9] Start: 08-23-2022 End: 08-23-2022 ambulatory MARYCARMEN GREGORIO Facility:[facility] Start: 08-23-2022 End: 08-23-2022 Patient encounter procedure Ailyn Graf DUMONT Work Phone: General Surgery Comment on above: Epigastric pain (Carlie alysa Dx); History of gastritis; History of colonic polyps; Encounter for screening for malignant neoplasm of colon; Gastroesophageal reflux disease, unspecified whether esophagitis present Start: 08-20-2022 End: 08-20-2022 ambulatory [facility] Work Phone: Start: 08-20-2022 End: 08-20-2022 Patient encounter procedure [facility]Outpatient Breast Imaging Start: 07-02-2022 End: 07-02-2022 ambulatory [facility] Work Phone: Start: 07-02-2022 End: 07-02-2022 [facility] Start: 04-01-2022 End: 04-01-2022 Patient encounter procedure [facility] Start: 11-28-2021 End: 11-28-2021 Patient encounter procedure [facility] Procedures Date Procedure Procedure Detail Performing Clinician Start: 08-25-[address] Marycarmen Gregorio MD Work Phone: Start: 08-25-2023 Screening mammography Start: 05-01-2023 Complete x-ray series of lumbar spine with bending views Start: 05-01-2023 Radiologic examination of knee Start: 09-19-2022 Level iv surg pathology gross&microscopic exam Myles Burnham MD Work Phone: Start: 09-19-2022 Esophagogastroduodenoscopy transoral diagnostic Aliyn Stockton PA-C Work Phone: Start: 09-19-2022 Colonoscopy flx dx w/collj spec when pfrmd Ailyn Stockton PA-C Work Phone: Start: 09-19-2022 Colonoscopy Ailyn Stockton PA-C Work Phone: Start: 08-20-2022 Screening mammography Start: 04-01-2022 X-ray of soft tissue of neck Plan of Treatment Date Care Activity Detail Author Start: 09-20-2027 Colonoscopy COLONOSCOPY [facility] Start: 09-20-2027 COLORECTAL CANCER SCREENING COLORECTAL CANCER SCREENING [facility] Start: 02-21-2023 Covid-19 Vaccine () Covid-19 Vaccine () [facility] Start: 02-21-2023 Influenza vaccination Influenza Vacc ine (#1) [facility] Start: 06-23-2022 ADVANCE DIRECTIVE DISCUSSION ADVANCE DIRECTIVE DISCUSSION [facility] Start: 06-23-2022 DEPRESSION ASSESSMENT DEPRESSION ASS ESSMENT [facility] Start: 01-02-2022 COVID-19 VACCINE (5 - Booster for Pfizer series) COVID-19 VACCINE (5 - Booster for Pfizer series) [facility] Start: 2009 BONE DENSITY BONE DENSITY [facility] Start: 2009 Bone Density Screening Bone Density Screening [facility] Start: 2009 PNEUMOCOCCAL: 65+ (1 - PCV) PNEUMOCOCCAL: 65+ (1 - PCV) [facility] Start: 2004 RSV Vaccine (1 - 1-d ose 60+ series) RSV Vaccine (1 - 1-dose 60+ series) [facility] Start: 1994 SHINGRIX VACCINE (1 of 2) SHINGRIX V ACCINE (1 of 2) [facility] Start: 1989 COLOGUARD (FIT-DNA) COLOGUARD (FIT-D NA) [facility] Start: [address] [facility] Start: 1989 DIABETES SCREEN DIABETES SCREEN [facility] Start: 1989 Diabetes Screening Diabetes Screenin g [facility] Start: 1989 FECAL OCCULT BLOOD FECAL OCCULT BLOO D [facility] Start: 1989 SIGMOIDOSCOPY SIGMOIDOSCOPY [facility] Start: 09-28-1963 Urine microalbumin profile [facility] Start: 1962 HEPATITIS C SCREENING HEPATITIS C GERDA ASENCIO [facility] Immunizations Immunization Date Immunization Notes Care Provider Fa cility 03-22-2022 influenza virus vacc ine, unspecified formulation Myles Burnham MD Work Phone: [facility] Payers Date Payer Category Payer Self-pay [id number] 2023 Self-pay [id number] 2021 Unknown [id number] 2021 Unknown MMO MMO MEDICARE SUPPLEMENT [id number] 2021-Present [phone] [address] [place] [address] Indemnity [id number] 2011 Unknown [id number] 2009 Medicare MEDICARE MEDICAR E A AND B [id number] 2009-Present [phone] [address] [address] [place] [address] Medicare [id number] 1998 Medicare [id number] Unknown [id number] Unknown [id number] Unknown [id number] Unknown [id number] Unknown [id number] Unknown [id number] Social History Date Type Detail Facility Start: 11-25-2018 End: 11-25-2018 Tobacco smoking status IAIS Unknown if ever smoked [facility] Start: 11-03-2018 Non-smoker [facility] Start: 1945 Sex Assigned At Female [facility] Start: 11-25-2018 End: 08-23-2022 Tobacco smoking status IAIS Never smoked tobacco [facility] Start: 08-23-2022 Tobacco use and exposure Smokeless tobacco non-user [facility] Start: 08-23-2022 End: 09-19-2022 Alcohol intake Current non-drinker of alcohol (finding) [facility] Start: 1945 Sex Assigned At Not on file [facility] Start: 08-23-2022 End: 09-19-2022 History of Social function [facility] Start: 08-23-2022 End: 09-19-2022 Tobacco use panel [facility] National Score (1-100), lower number is lower risk 52 [facility] Start: 08-30-2024 End: 09-05-2024 Sex Female (finding) [facility] Clinical Notes 08-23-2022 to 07-24-2023 Note Date & Type Note Facility 07-24-2023 Discharge summary Note Date/Time July 24, 2023 11:06am [facility] Physical Therapy [facility] [place] [address] / REHABILITATION SERVICES DISCHARGE SUMMARY MR#: [id number] Acct: [id number] Name: ROSEMARY SCHROEDER Rep #: [id number] : 1945 77 From: John Wasserman PT, ATC Referring Dr.: Dr. Nadeem Gregorio MD Statu s: REG RCR Insurance: MEDICARE PART A B [facility] Discharge Summary D/C summary: It has been my pleasure to treat ROSEMARY SCHROEDER referred by Dr. Nadeem Gregorio MD, with the diagnosis of R shoulder pain for a total of 5 visit(s). Discharge Date: Please see the following information for a summary of their discharge status. Subjective Subjective: I am sore today, I must have slept wrong on it. I am better overall Pain R shoulder pain: Pain Intensity (Out of 10): 4 Overall Improvement % Improvement: 85 Objective Objective/Function: R shoulder pain ranges from 4-7/10 R shoulder ROM: flex= 155, abd= 140, ER= 0 degrees R shoulder MMT: flex= 9, abd= 14, ER= 4, IR= 16 #F Pt is I with HEP Goals Goal 1:: I with HEP in 3 visits Goal Progress: Goal Met Plan Plan: Discharge to HEP D/C Information d/c sentence: If there are questions or concerns regarding this patient's physical therapy, please feel free to call me at [phone]. Thank you for the referral of thispatient. Sincerely, John Wasserman, PT, ATC Balance/Gait/Functional tests Balance/Special Test Scores Quick DASH Score: 27.2725 Improvement % Improvement: 85 <Electronically signed by John Wasserman PT, ATC> 07/24/23 1106 CC: Dr. Nadeem Gregorio MD ~ [facility] Signed [facility] Work Phone: 1(113) 665-764804-11-2023 NoteHNO ID: [id number] Author: Ailyn Stockton PA-C Service: ? Author Type: Physician Veneer Sander Type: Progress Notes Filed: 10/01/2022 4:43 PM Note Text: FOLLOW UP VISIT - ENDOSCOPY NAME: Rosemary Schroeder CLINIC NO.: [id number] DATE OF SERVICE: 10/01/2022 : 1945 REFERRING [...] which included preparing to see the patient, [id number] patient care, completing clinical documentation, obtaining and/or reviewing separately obtained history, counseling and educating the patient/family/caregiver, independently interpreting results (not separately reported), and communicating results to the patient/family/caregiver. [facility]04-11-2023 Instructions* Patient Instructions* Ailyn Stockton PA-C - 10/01/2022 3:14 PM [...] to your office visit today with the [facility] General Surgeons. INSTRUCTIONS FOLLOWING A NORMAL COLONOSCOPY I discussed with you the findings of your colonoscopy. Since there were no worrisome abnormalities,I recommend you undergo repeat endoscopic screening in [...] epigastric pain, burning, difficulty swallowing or food stickingshould be relayed to your physician. Feeling full early after eating, or black, tarry, foul smelling stools are also worrisome. If you have any difficulties or concerns, you should contact our office immediately. If you note any additional difficulties, questions, or concerns, you should contact our office immediately @ [phone] and ask to be transferred to the General Surgery department. documented in [facility] History of Present illness Narrative* Ailyn Stockton PA-C - 10/01/2022 2:42 PM EDT FOLLOW UP VISIT - ENDOSCOPY NAME: Rosemary Schroeder [facility] NO.: [id number] DATE OF SERVICE: 10/01/2022 : 1945 REFERRING PHYSICIAN: Marycarmen Gregorio MD Rosemary is a patient I am following for stomach pain, history of gastritis and personal history ofcolon polyps. Dr. Burnham performed upper and lower [...] with the patient, and the patient has hadthe opportunity to ask questions and have questions [...] which included preparing to see the patient, [id number] patient care, completing clinical documentation, obtaining and/or reviewing separately obtained history, counseling and educating the patient/family/caregiver, independently interpretin g results (not separately reported), and communicating results to the patient/family/caregiver. Ailyn Stockton PA-C documented in this encounter[facility] Center03-30-2023 Nurse Note* Priyanka Marie RN - 09/19/2022 1:23 PM EDT Patient states that pain is resolved to 3/10 in abdomen and is able to eat and drink what has been provided. Patient states she is ready for discharge. Patient's abdomen appears to be nondistended and soft to palpation. * Priyanka Marie RN - 09/19/2022 1:13 PM EDT Patient stated pain has decreased to 6/10 in abdomen. Patient in bathroom and is able to pass gas and belch. * Priyanka Marie RN - 09/19/2022 12:45 PM EDT Patient arrived laying on left side. Patient states that she is having 7/10 sharp intermittent pain. Patient encouraged to pass gas and belch. Patient's abdomen appears to be slightly distended but soft to palpation. Priyanka Marie RN documented in this encounterUc [facility] Center03-30-2023 History and physical note * Myles Burnham MD - 09/19/2022 11:45 AM EDT Images from the original note were not [...] endoscopy. Last EGD was 09/10/[address] Bunrham under conscious sedation with findings of some [...] OF Bilateral 2016 Cataract removal- Dr. Mcclellan, [facility] CURRENT MEDICATIONS Current Outpatient Medications Medication Sig [...] entered by the nurse and reviewed by mt Nursing Notes: Tammy Ty LPN 08/23/2022 8:40 [...] nourished, well hydrated in no acute distress. Thepatient is oriented to time, place, and person. VITALS: Blood pressure 136/88, pulse 89, temperature 36.4 C (97.6 F), height 157.5 cm (5' 2), weight 92 kg (202 lb 12.8 oz), SpO2 97 %. Body mass index is 37.09 kg/m . HEENT: Normal cephalic, ataumatic, pupils are equally round, sclera are anicteric, mucous membranesare moist, oropharynx is clear. Neck has no [...] patient was offered a surgery/procedure at a [facility] facility. I have counseled the patient regarding [...] wishes. I have explained that with IV conscioussedation there is no anesthesia provider available and therefore there is a limitation of the amount of IV medications that can be given and that the patient may wake up in the middle of the procedure and/or experience pain/discomfort during the procedure. Further discussion was done and the patient was given the opportunity to ask questions and all questions were answered. The patient chooses IVconscious sedation Diagnoses: (R10.13) Epigastric pain (primary encounter [...] has been reviewed and the patient has beenexamined. The contents accurately reflect the patient's condition with the following additions or revisions since the H&P was completed. Examination indicates no changes. This H&P can be found in the attached. SIGNATURE: Myles Burnham III, MD PATIENT NAME: Rosemary Schroeder DATE: September 19, 2022 TIME: 12:05 PM documented in this encounterUc Medical Center03-03-2023 NoteHNO ID: [id number] Author: Ailyn Stockton PA-C Service: ? Author Type: Physician Veneer Sander Type: Progress Notes Filed: 09/03/2022 12:42 PM [...] OF Bilateral 2016 Cataract removal- Dr. Mcclellan, [facility] Current Outpatient Medications Medication Sig atenolol (TENORMIN) [...] entered by the nurse and reviewed by mt Nursing Notes: Tammy Ty LPN 08/23/2022 8:40 [...] stool control, and denies (more content not included)...[facility]03-03-2023 History of Present illness Narrative* Ailyn Stockton PA-C - 08/23/2022 8:40 AM EST HISTORY AND PHYSICAL Rosemary Schroeder 1945 REFERRING [...] OF Bilateral 2016 Cataract removal- Dr. Mcclellan, [facility] Current Outpatient Medications Medication Sig atenolol (TENORMIN) [...] entered by the nurse and reviewed by mt Nursing Notes: Tammy Ty LPN 08/23/2022 8:40 [...] nourished, well hydrated in no acute distress. Thepatient is oriented to time, place, and person. VITALS: Blood pressure 136/88, pulse 89, temperature 36.4 C (97.6 F), height 157.5 cm (5' 2), weight 92 kg (202 lb 12.8 oz), SpO2 97 %. Body mass index is 37.09 kg/m . HEENT: Normal cephalic, ataumatic, pupils are equally round, sclera are anicteric, mucous membranesare moist, oropharynx is clear. Neck has no [...] patient was offered a surgery/procedure at a [facility] facility. I have counseled the patient regarding [...] wishes. I have explained that with IV conscioussedation there is no anesthesia provider available and therefore there is a limitation of the amount of IV medications that can be given and that the patient may wake up in the middle of the procedure and/or experience pain/discomfort during the procedure. Further discussion was done and the patient was given the opportunity to ask questions and all questions were answered. The patient chooses IVconscious sedation Diagnoses: (R10.13) Epigastric pain (primary encounter [...] mail. Ailyn Stockton PA-C documented in this encounterUc Medical Center03-03-2023 Nurse Note* Tammy Ty LPN - 08/23/2022 8:37 AM EST REVIEW OF SYSTEMS: General: The patient NOTES [...] 2015 Tammy Ty LPN [facility] noteNo assessment information availableWMercy Hospital Work Phone: Evaluation note* Diagnosis Epigastric pain- Primary Abdominal pain, epigastric History of gastritis Personal history of other diseases of digestive system History of colonic polyps Personal history of colonic polyps Encounter for screening for malignant neoplasm of colon Special screening for malignant neoplasms, colon Gastroesophageal reflux disease, unspecified whether esophagitis present documented in this encounter [facility] note* Diagnosis History of gastritis- Primary Personal history of other diseases of digestive system History of colonic polyps Personal history of colonic polyps Diverticulosis Diverticulosis of colon (without mention of hemorrhage) Hemorrhoids, unspecified hemorrhoid type Current use of proton pump inhibitor Encounter for long-term (current) use of other medications documented in this encounter [facility] note* Diagnosis Encounter for screening colonoscopy- Primary Special screening for malignant neoplasms, colon Stomach pain Dyspepsia and other specified disorders of function of stomach Long-term current use of proton pump inhibitor therapy Gastroesophageal reflux disease with esophagitis without hemorrhage History of colonic polyps Personal history of colonic polyps documented in this encounter [facility] for referral (narrative)* Outpatient Procedure (Routine) - Closed Specialty Diagnoses / Procedures Referred By Trav otoole Referred To Contact [facility] Diagnoses Stomach pain Long-term current use of proton pump inhibitor therapy Gastroesophageal reflux disease with esophagitis without hemorrhage History of colonic polyps Procedures EGD DIAGNOSTIC ESOPHAGOGASTRODUODENOSC OPY TRANSORAL DIAGNOSTIC Ailyn Stockton PA-C [address] [place] [address] [id number] [place] [address] Referral ID Status Reason Start Date Expiration Date V isits Requested Visits Authorized [id number] Closed Auto-Generate d Referral 08/23/2022 08/24/2023 1 1 * Outpatient Procedure (Routine) - Closed Specialty Diagnoses / Procedures Referred By Contac t Referred To Contact [facility] Diagnoses Stomach pain Long-term current use of proton pump inhibitor therapy Gastroesophageal reflux disease with esophagitis without hemorrhage History of colonic polyps Procedures COLONOSCOPY SCREENING COLONOSCOPY FLX DX W/COLLJ SPEC WHEN PFRMD Ailyn Stockton PA-C [address] [place] [address] [address] Referral ID Status Reason Start Date Expiration Date V isits Requested Visits Authorized [id number] Closed Auto-Generate d Referral 08/23/2022 08/24/2023 1 1 [facility]No reason for referral information availableWMercy Hospital Work Phone: Reason for visit Narrative* Outpatient Procedure (Routine) - Closed Specialty Diagnoses / Procedures Referred By Trav otoole Referred To Contact [facility] Diagnoses Stomach pain Long-term current use of proton pump inhibitor therapy Gastroesophageal reflux disease with esophagitis without hemorrhage History of colonic polyps Procedures EGD DIAGNOSTIC ESOPHAGOGASTRODUODENOSC OPY TRANSORAL DIAGNOSTIC Ailyn Stockton PA-C [address] [place] [address] [address] Referral ID Status Reason Start Date Expiration Date V isits Requested Visits Authorized [id number] Closed Auto-Generate d Referral 08/23/2022 08/24/2023 1 1 [facility] Advance Directives Advance Directive Response Recorded Date/ Time Living Will No November 03, 2018 2 :22pm Power of Block Saw Operator Yes November 03, 2018 2:22pm Advance Directive Response Recorded Date/ Time Living Will No November 03, 2018 1 :22pm Power of Block Saw Operator Yes November 03, 2018 1:22pm Chief Complaint and Reason for Visit Chief Complaint SCREENING Chief Complaint EORDER- LEFT KNEE AN D BACK PAIN Chief Complaint EORDER- LEFT KNEE AN D BACK PAIN R SHOULDER PAIN RX HERE Chief Complaint EORDER- LEFT KNEE AN D BACK PAIN R SHOULDER PAIN RX HERE SCREENING Chief Complaint R SHOULDER PAIN RX H ERE SCREENING DWD Chief Complaint Admit Date SCREENING August 25, 2024 1:59 pm Summary Purpose Family History No Family History Records FoundNo Family History Records Found Medications Administered Section Inactive Administered Medications - up to 3 most recent administrations Medication Order MAR Action Action Date Dose Rate Site benzocaine 20% 1 [place] (TOPEX) 1 [place], TOPICAL, DIRECTED, Starting on Tabby 09/19/22 at [...] Given 09/19/2022 12:25 PM EDT 50 mcg Given 09/19/2022 12:09 PM EDT 50 mcg lactated ringers iv infusion 30 mL/hr, INTRAVENOUS, CONTINUOUS, Starting on Tabby 09/19/22 at 1100, Until Tabby 09/19/22 at 1243, Preprocedure New Bag/Syringe/Bottle 09/19/2022 11:20 AM EDT 30 mL/hr 30 mL/hr midazolam 1-5 mg injection (VERSED) 1-5 mg, INTRAVENOUS, DIRECTED, Starting on Tabby 09/19/22 at 1230, Until Tabby 09/19/22 at 1629, DOSING DIRECTED BY PHYSICIAN FOR PROCEDURAL SEDATION ONLY, Intraprocedure Given 09/19/2022 12:22 PM EDT 2 mg Given 09/19/2022 12:09 PM EDT 3 mg Additional Source Comments Goals (unrecognized section and content) Goals may be documented in a n alternate sectionGoals may be documented in an alternate sectionGoals may be documented in an alternate sectionGoals may be documented in an alternate sectionGoals may be documented in an alternate sectionGoals may be documented in an alternate sectionGoals may be documented in an alternate sectionGoals may be documented in an alternate sectionGoals may be documented in an alternate sectionGoals may be documented in an alternate section Care Teams (unrecognized sec tion and content) Team Status: Active Member Role Status Dates Dr. Winston Jonas MD Family Provider Active Dr. Nadeem Gregorio MD Primary Care Provider Activ e Team Status: Inactive Member Role Status Dates Dr. Nadeem Gregorio MD Primary Care Provider, Attending Provider, Referring Provider Active Team Status: Inactive Member Role Status Dates Dr. 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 Winston Jonas MD Family Provider Active Dr. Marycarmen Gregorio MD Primary Care Provider Acti ve Team Status: Inactive Member Role Status Dates Dr. Marycarmen Gregorio MD Primary Care Provider, Attending Provider, Referring Provider Active Team Status: Inactive Member Role Status Dates Dr. Marycarmen Gregorio MD Primary Care Provider, Att ending Provider Active Team Status: Inactive Member Role Status Dates Dr. Marycarmen Gregorio MD Primary Care Provider Acti ve Self Referred Attending Provider Active Team Status: Active Member Role Status Dates Dr. Marycarmen Gregorio MD Primary Care Provider Acti ve Team Status: Inactive Member Role Status Dates Dr. Marycarmen Gregorio MD Primary Care Provider Acti ve Start: August 17, 2024 End: August 17, 2024 Dr. Marycarmen Gregorio MD Attending Provider Active Start: August 17, 2024 End: August 17, 2024 Dr. Marycarmen Gregorio MD Referring Provider Active Start: August 17, 2024 End: August 17, 2024 Team Status: Active Member Role Status Dates Dr. Marycarmen Gregorio MD Primary Care Provider Acti ve Start: August 25, 2024 Dr. Marycarmen Gregorio MD Attending Provider Active Start: August 25, 2024 Dr. Marycarmen Gergorio MD Referring Provider Active Start: August 25, 2024 Team Status: Inactive Member Role Status Dates Dr. Marycarmen Gregorio MD Primary Care Provider Acti ve Start: August 25, 2024 End: August 25, 2024 Dr. Mayrcarmen Gregorio MD Attending Provider Active Start: August 25, 2024 End: August 25, 2024 Dr. Marycarmen Gregorio MD Referring Provider Active Start: August 25, 2024 End: August 25, 2024 Source Comments (unrecognize d section and content) In the event this informatio n is protected by the Federal Confidentiality of Alcohol and Drug Abuse Patient Records regulations: The Federal rules restrict any use of the information to criminally investigate or prosecute any alcohol or drug abuse patient.[facility] the event this information is protected by the Federal Confidentiality of Alcohol and Drug Abuse Patient Records regulations: The Federal rules restrict any use of the information to criminally investigate or prosecute any alcohol or drug abuse patient.[facility] the event this information is protected by the Federal Confidentiality of Alcohol and Drug Abuse Patient Records regulations: The Federal rules restrict any use of the information to criminally investigate or prosecute any alcohol or drug abuse patient.[facility] Reason for Visit (unrecogniz ed section and content) Reason Comments Consult EGD Reason Comments Follow Up colonoscopy INFORMATION SOURCE (unrecogn ized section and content) DATE CREATED AUTHOR 10/08/2022 [facility] DATE CREATED AUTHOR AUTHOR'S RACHAEL JEFFREY 09/07/2024 [facility] FOR RECORDS PERTAINING TO PATIENTS WHO ARE [...] BE BASED ON THE PRIMARY CLINICAL RECORDS. [employer] provides no warranty or guarantee of the accuracy or completeness of information in this document.
[2025-03-15 13:34] LABS: PTHIN 93 pg/mL (11-61)
[2025-03-15 15:41] LABS: Creatinine, Urine (random) 91.70 mg/dL (28.00-217.00); Microalbumin,Random Urine 44.5 mg/L (<20 mg/L)
== END | disposition home or self-care (01) ==
LOC: MFPLAB 10:50
PROVIDERS: PCP Family Medicine; Visit Provider Family Medicine
DX: N18.30 Chronic kidney disease, stage 3 unspecified (principal)
CPT/HCPCS: 36415; 82043; 82570; 83970

== ENCOUNTER → 2025-04-05 | Outpatient (CLI) | payer MEDICARE, OTHER, SELFPAY ==
--- NOTE | 2025-04-05 08:53 | BD_ITS ---
PROCEDURE: DEXA BONE DENSITY STUDY 04/05/2025 REASON FOR EXAM: F, age 79 y/o . Postmenopausal. TECHNIQUE: Procedure Code: BDDBD Modality: DX Procedure: DEXA BONE DENSITY STUDY COMPARISON: Prior study dated November 08, 2020. FINDINGS: BMD and T-SCORES Lumbar spine: 1.260 g/cm2, T-score 2.1 Levels: L1 through L4 Change from prior: Loss of 4.8%. Left femoral neck: 0.811 g/cm2, T-score -0.3 Femoral neck comparison data not recommended for monitoring change. Left total hip: 0.893 g/cm2, T-score -0.4 Change from prior: Improvement of 1.4%. Right femoral neck: 0.810 g/cm2, T-score -0.3 Femoral neck comparison data not recommended for monitoring change. Right total hip: 0.837 g/cm2, T-score -0.9 Change from prior: Loss of 6.2%. The World Health Organization has defined the following categories based on bone density: Normal bone density: T-score equal to or greater than -1.0 Osteopenia: T-score between -1.0 and -2.5 Osteoporosis: T-score equal to or less than -2.5 FRAX (or Comparable) Fracture Risk Assessment: 10 Year Probability of Fracture: Major Osteoporotic Fracture: 13% Hip Fracture: 1.6% (Note: FRAX is not to be reported in setting of normal range bone density, osteoporosis on DEXA, known history of osteoporosis, prior osteoporotic hip or vertebral fracture, or for any patient undergoing pharmacological treatment for bone loss.) The National Osteoporosis Foundation (NOF) recommends pharmacological treatment for patients with a FRAX 10-year risk of 3% or higher for a hip fracture, or 20% or higher for a major osteoporotic fracture, to prevent osteoporosis and reduce fracture risk. The patient does not meet the pharmacological treatment recommendations for prevention of osteoporosis. BD/Dexa Bone Density Study IMPRESSION: NORMAL T-SCORES. Recommend follow-up as clinically warranted. Reading Location: [place] [id number]
== END | disposition home or self-care (01) ==
LOC: OPBD 08:48
PROVIDERS: PCP Family Medicine; Referring Provider Family Medicine; Visit Provider Family Medicine
DX: Z13.820 Encounter for screening for osteoporosis (principal); M81.0 Age-related osteoporosis without current pathological fracture; Z78.0 Asymptomatic menopausal state
CPT/HCPCS: 77080

== ENCOUNTER → 2025-06-07 | Outpatient (CLI) | payer MEDICARE, OTHER, SELFPAY ==
[2025-06-07 15:19] LABS: Hematocrit 40.7 % (37-47); Hemoglobin 12.6 g/dL (12.0-15.0); Immature Granulocytes Count 0.020 X10^3/uL (0.0-0.0); Mean Corp Hgb Conc 31.0 g/dL (32-36); Mean Corpuscular Volume 96.2 fL (81-99); Mean Platelet Vol. 9.5 fl (6.2-12.0); NRBC Flagged by Analyzer 0 % (0-5); Platelet Count 349 K/mm3 (150-450); RBC Distribution Width CV 13.1 % (11.6-14.6); RBC Distribution Width SD 46.5 fl (35.1-43.9); Red Blood Count 4.23 M/mm3 (4.2-5.4); White Blood Count 8.7 K/mm3 (4.4-11.0)
[2025-06-07 16:08] LABS: Anion Gap 12 (5-15); BUN 25 mg/dL (4-19); BUN/Creat Ratio 21.7 RATIO (10-20); Calcium,Total 10.0 mg/dL (7.6-11.0); Carbon Dioxide 27.9 mmol/L (21.0-32.0); Chloride 101 mmol/L (98-108); Glucose 141 mg/dL (70-99); Iron 95 ug/dL (50-170); Potassium 3.6 mmol/L (3.3-5.1); Vitamin D,25 Hydroxy 34.8 ng/mL (30-100)
[2025-06-07 17:04] LABS: PTHIN 103 pg/mL (11-61)
--- OUTSIDE RECORDS SUMMARY | 2025-06-07 18:51 | XMS RPT_ITS | CCD ---
Author Organization [facility] Care Team Providers Care Gluten Settling Tender Name Role Phone Marycarmen Gregorio MD Primary Care Provider MARYCARMEN GREGORIO Primary Care UnavailMYLES Lopez Referring Unavailable AILYN STOCKTON Attending Unavailable MARYCARMEN GREGORIO Primary Care UnavailMYLES Lopez Attending Unavailable GRAF AILYN Referring Unavailable MARYCARMEN GREGORIO Referring UnavailMARYCARMEN Felder Primary Care UnavailAILYN Patel Attending Unavailable Marycarmen Gregorio MD Primary Care Provider Dr. Marycarmen Gregorio MD Primary Care Provider Dr. Marycarmen Gregorio MD Attending Provider [phone] Dr. Marycarmen Gregorio MD Referring Provider Dr. Marycarmen Gregorio MD Primary Care Physicia n Dr. Marycarmen Gregorio MD Attending Physician Marycarmen Gregorio Attending Unavailable Marycarmen Gregorio Primary Care Unavailable Marycarmen Gregorio Attending Unavailable Marycarmen Gregorio Referring Unavailable Marycarmen Gregorio Primary Care Unavailable Marycarmen Gregorio Attending Unavailable Marycarmen Gregorio Referring Unavailable Marycarmen Gregorio Primary Care Unavailable Marycarmen Gregorio Referring Unavailable Marycarmen Gregorio Primary Care Unavailable Marycarmen Gregorio Attending Unavailable Allergies Allergy Classification Reported Allergen(s) Allergy Type Date of Onset Reaction(s) Facility (15 sources) Codeine; Translations: [CODEINE] Drug Allergy 8 Nausea/Vom/Diar simone [facility] (11 sources) Tetracycline Drug Allergy [address] [facility] (4 sources) traMADol; Translations: [TRAMADOL] Drug Allergy 3 GI Upset [facility] (1 source) Codeine Drug Allergy 9 [facility] (1 source) Tetracycline Drug Allergy 9 [facility] Medications Current Medications Medication Drug Class(es) Dates Sig (Normalized) Sig (Original) 8 hr acetaminophen 650 mg extended release oral tablet (14 sources) Start: 11-03-2018 Start: 12-16-2007 ACETAMINOPHEN 500 MG TAB Take one(1) tablet every four(4) to six(6) hours as needed for pain. 0 12/16/2007 Active Comment on above: Take one(1) tablet e very four(4) to six(6) hours as needed for pain. ascorbic acid 226 mg / beta carotene 64788 unt / cuprous oxide 0.8 mg / dl-alpha tocopheryl acetate 200 unt / zinc oxide 34.8 mg oral capsule (1 source) Vitamin C Start: 12-18-2017 atenolol 50 mg oral tablet (14 sources) beta-Adrenergic Erick Start: 12-18-2017 take 1 tablet by mouth once daily atenolol (TENORM IN) 50 mg tablet Take 25 mg by mouth once daily. 0 Active Comment on above: Take 25 mg by mouth once daily. diclofenac sodium 0.01 mg/mg topical gel (20 sources) Nonsteroidal Anti-inflammatory Drug Start: 10-14-2018 apply 2 g topically four times daily as needed for pain Start: 12-18-2017 take 1 tablet by mouth twice d aily Comment on above: Take 75 mg by mouth twice daily. glimepiride 2 mg oral tablet (14 sources) Sulfonylurea Start: 12-18-2017 take 1 tablet by mouth once daily in the morning Comment on above: Take 2 mg by mouth d aily with breakfast. hydroCHLOROthiazide 12.5 mg oral capsule (14 sources) Thiazide Diuretic Start: 12-18-2017 take 1 capsule by mouth once daily in the morning HYDROCHLOROTHIAZ BRANDYN ORAL Take 25 mg by mouth. 0 Active Comment on above: Take 25 mg by mouth. levothyroxine sodium 0.05 mg oral capsule (11 sources) l-Thyroxine Start: 8 take 1 capsule by mouth once daily Multivitamin (One-A-Day Essential) tablet (11 sources) Start: 8 take 1 tablet by mouth once daily in the morning Multivitamin (One-A-Day Essential) tablet Active 1 TABLET PO EVERY MORNING December 18, 2017 2:57pm Start: 12-18-2017 Start: 12-18-2017 Multivitamin ( One-A-Day Essential) tablet [...] pantoprazole 20 mg delayed release oral tablet (14 sources) Proton Pump Inhibitor Start: 12-18-2017 take 1 tablet by mouth once daily take 1 tablet by mouth once jaes y pantoprazole DR (PROTONIX) 40 mg tablet Take 40 mg by mouth once daily. 0 Active Comment on above: Take 40 mg by mouth once daily. 24 hr venlafaxine 75 mg extended release oral capsule (14 sources) Serotonin and Norepinephrine Reuptake Inhibitor Start: 12-18-2017 take 1 capsule by mouth once daily venlafaxine XR 7 5 mg tr24 Take by mouth once daily. 0 Active Comment on above: Take by mouth once d aily. Vitamins A,C,M-Akzi-Wvdvqw (Preservision Areds) 14,320-226-200 jwao-cb-viox capsule (10 sources) Start: 12-18-2017 take 1 capsule by mouth twice daily Vitamins A,C,N-Xpzg-Mngcva (Preservision Areds) 14,320-226-200 vcqx-zu-tbme capsule Active 1 CAP PO TWICE A DAY December 18, 2017 2:57pm Start: 12-18-2017 Vitamins A,C,E -Zinc-Copper (Preservision Areds) 14,320-226-200 cytq-hm-cytp capsule Active 1 NMA PO TWICE A DAY December 18, 2017 12:00am Start: 12-18-2017 take 1 capsule by mo uth twice daily Vitamins A,C,C-Jent-Mxvder (Preservision Areds) 14,320-226-200 uoah-uy-uhbr capsule Active 1 CAP PO TWICE A DAY December 18, 2017 12:00am Start: 12-18-2017 take 1 capsule by [facility] twice daily Vitamins A,C,R-Tfwc-Tqeskx (Preservision Areds) 14,320-226-200 zzca-mq-axlt capsule Active 1 CAP PO TWICE A DAY December 17, 2017 11:00pm Completed/Discontinued Medications Medication Drug Class(es) Dates Sig (Normalized) Sig (Original) acetaminophen 325 mg / HYDROcodone bitartrate 5 mg oral tablet (20 sources) Opioid Agonist Start: 11-10-2018 End: 11-15-2018 Hydrocodone-Acetamino phen 1 TABLET tablet Discontinued 1 - 2 {tbl} PO EVERY 4 HOURS NEEDED as needed for Pain 20 November 10, 2018 12:00am November 14, 2018 12:00am November 15, 2018 12:07am Other acute postprocedural pain Start: 11-10-2018 End: 11-15-2018 take 1 tablet by mouth every four hours as needed Hydrocodone-Acetaminophen Discontinued 1 - 2 TABLET PO EVERY 4 HOURS NEEDED 20 November 10, 2018 12:00am November 15, 2018 12:07am Start: 12-09-2017 End: 10-14-2018 Hydrocodone-Acetaminophen 1 TABLET tablet Discontinued 1 {tbl} PO EVERY 6 HOURS NEEDED as needed for Pain 10 3 0 December 09, 2017 12:00am October 14, 2018 12:52pm Closed fracture of head of right radius Start: 12-09-2017 End: 10-14-2018 take 1 tablet by mouth every six hours as needed Hydrocodone-Acetaminophen Discontinued 1 TABLET PO EVERY 6 HOURS NEEDED 10 3 December 09, 2017 12:00am October [...] pain; Translations: [Epigastric pain] Onset: 3 Episodic Chronic kidney disease (1 source) Chronic kidney disease; Translations: [Chronic kidney disease, stage 3 unspecified] Onset: 5 Diabetes mellitus with complications (1 source) Type [...] (1 source) Drug therapy finding; Translations: [Other fpc (current) drug therapy] Episodic Other aftercare (3 sources) Other therapeutic activities services worker (current) drug therapy; Translations: [Long-term (current) use [...] conditions (not mental disorders or infectious disease) (5 sources) Patient encounter status; Translations: [Encounter for screening for malignant neoplasm of colon] Onset: 3 Episodic Results Test Name Value Interpretation Reference Range Facility Dexa Bone Density Studyon Dexa Bone Density Study [facility] Imaging Services [address] [place] [address] [id number] Dexa Bone Density Study MR#: [id number] Acct: [id number] Name: ROSEMARY SCHROEDER Rep #: [id number] : 1945 F 79 From: Osmany pennington MD PCP: Dr. Marycarmen Gregorio MD Status: REG CLI Study: Dexa Bone Density Study Date of Exam: 04/05/25 Exam# [id number] Ordering Dr: Marycarmen Gregorio PROCEDURE: DEXA BONE DENSITY STUDY 04/05/2025 REASON FOR EXAM: F, age 79 y/o . Postmenopausal. TECHNIQUE: Procedure Code: BDDBD Modality: DX Procedure: DEXA BONE DENSITY STUDY COMPARISON: Prior study dated November 08, 2020. FINDINGS: BMD and T-SCORES Lumbar spine: 1.260 g/cm2, T-score 2.1 Levels: L1 through L4 Change from prior: Loss of 4.8%. Left femoral neck: 0.811 g/cm2, T-score -0.3 Femoral neck comparison data not recommended for monitoring change. Left total hip: 0.893 g/cm2, T-score -0.4 Change from prior: Improvement of 1.4%. Right femoral neck: 0.810 g/cm2, T-score -0.3 Femoral neck comparison data not recommended for monitoring change. Right total hip: 0.837 g/cm2, T-score -0.9 Change from prior: Loss of 6.2%. The World Health Organization has defined the following categories based on bone density: Normal bone density: T-score equal to or greater than -1.0 Osteopenia: T-score between -1.0 and -2.5 Osteoporosis: T-score equal to or less than -2.5 FRAX (or Comparable) Fracture Risk Assessment: 10 Year Probability of Fracture: Major Osteoporotic Fracture: 13% Hip Fracture: 1.6% (Note: FRAX is not to be reported in setting of normal range bone density, osteoporosis on DEXA, known history of osteoporosis, prior osteoporotic hip or vertebral fracture, or for any patient undergoing pharmacological treatment for bone loss.) The National Osteoporosis Foundation (NOF) recommends pharmacological treatment for patients with a FRAX 10-year risk of 3% or higher for a hip fracture, or 20% or higher for a major osteoporotic fracture, to prevent osteoporosis and reduce fracture risk. The patient does not meet the pharmacological treatment recommendations for prevention of osteoporosis. BD/Dexa Bone Density Study IMPRESSION: NORMAL T-SCORES. Recommend follow-up as clinically warranted. Reading Location: [place] [address] CC: Dr. Marycarmen Gregorio MD Level Vial Curvature Gauger: Signed Normal [facility] Microalb:Creat Ratio,Random URon 03-15-2025 Creatinine [Mass/Vol] 91.70 mg/dL Normal 28.00-217.00 [facility] Comment on above: Order Comment: Order Date: 03/15/25 Order Info: 96577-7 - MIALB Performed By: #### L 502.0250 #### [facility] [address] [place], [place], [id number] MALB:CREAT 48.5 mg/g CRE High <30 mg/g CRE [facility] Comment on above: Order Comment: Order Date: 03/15/25 Order Info: 83225-3 - MIALB Performed By: #### L 502.0250 #### [facility] [address] [place], [place], [id number] MICROALBUMIN,UR 44.5 mg/L Normal <20 mg/L [facility] Comment on above: Order Comment: Order Date: 03/15/25 Order Info: 24250-8 - MIALB Performed By: #### L 502.0250 #### [facility] [address] [place], [place], [address] PTHINon 03-15-2025 PTH 93 pg/mL High 11-61 [facility] Comment on above: Order Comment: Order Date: 03/15/25 Order Info: 0565-1 - PTHIN Performed By: #### L 509.1000 #### [facility] [address] [place], [place], [address] Random urine creatinine felisa urement (mass/volume)Ordered By: Marycarmen Gregorio on 03-15-2025 Creatinine Unsp time (U) [Mass/Vol] 91.70 mg/dL 28.00-217.00 [facility] Urine albumin measurement wi detection limit of 20 mg/L or less (mass/volume)Ordered By: Marycarmen Gregorio on 03-15-2025 Albumin DL <= 20 mg/L (U) [Mass/Vol] 44.5 mg/L <20 mg/L [facility] Breast imaging reportOrdered By: Osmany Etienne on 08-25-2024 Study report [facility] Imaging Services [address], [place] [address] SCRN MAMM (CAD)W/MELNIDA BILAT MR#: [id number] Acct: [id number] Name: ROSEMARY SCHROEDER Rep #: [id number] : 1945 F 78 From: Wilver Etienne MD PCP: Dr. Marycarmen Gregorio MD Status: REG CLI Study:SCRN MAMM (CAD)W/MELINDA BILAT Date of Exa m: 08/25/24 Exam# [id number] Ordering Dr: Santa Gregorio MD PROCEDURE: SCRN [...] of the results by letter. Reading Location: [id number] CC: Dr. Marycarmen Gregorio MD ~ Level Vial Curvature Gauger: Signed [facility] SCRN MAMM (CAD)W/MELINDA BILATo n 08-25-2024 SCRN MAMM (CAD)W/MELINDA BILAT [facility] Imaging Services [address] [place] [address] SCRN MAMM (CAD)W/MELINDA BILAT MR#: [id number] Acct: [id number] Name: ROSEAMRY SCHROEDER Rep #: [id number] : 1945 F 78 From: Osmany pennington MD PCP: Dr. Marycarmen Gregorio MD Status: REG CLI Study: SCRN MAMM (CAD)W/MELINDA BILAT Date of Exam: 11/14 Exam# [id number] Ordering Dr: Marycarmen Gregorio PROCEDURE: SCRN MAMM [...] of the results by letter. Reading Location: [id number] CC: Dr. Marycarmen Gregorio MD Level Vial Curvature Gauger: Signed Normal [facility] BUN/creatinine ratioOrdered By: Marycarmen Gregorio on 08-17-2024 Urea nitrogen/Creatinine [Mass ratio] 26.1 mg/mg High 10-20 [facility] Bilirubin, totalOrdered By: Marycarmen Gregorio on 08-17-2024 Bilirubin [Mass/Vol] 0.35 mg/dL 0.00-1.30 [facility] Comprehensive Metabolic Prof ilon 08-17-2024 Albumin [Mass/Vol] 4.1 g/dL Normal 3.4-4.8 [facility] Comment on above: Order Comment: Order Date: 08/17/24 Order Info: 0786-1 - CMP Order Info: 3016-3 - TSH Performed By: #### L 501.9520, L500.4050 #### [facility] [address] [place], [address] Albumin/Globulin [Mass ratio] 1.6 {ratio} Normal 0.9-2.4 [facility] Comment on above: Order Comment: Order Date: 08/17/24 Order Info: 0786-1 - CMP Order Info: 3016-3 - TSH Performed By: #### L 501.9520, L500.4050 #### [facility] [address] [place], [address] ALK PHOS 107 U/L High 35-104 [facility] Comment on above: Order Comment: Order Date: 08/17/24 Order Info: 0786-1 - CMP Order Info: 3 - TSH Performed By: #### L 501.9520, L500.4050 #### [facility] [address] [place], [address] ALT [Catalytic activity/Vol] 27 U/L Normal <=34 [facility] Comment on above: Order Comment: Order Date: 08/17/24 Order Info: 07-1 - CMP Order Info: 3 - TSH Performed By: #### L 501.9520, L500.4050 #### [facility] [address] [place], [address] Anion gap [Moles/Vol] 14 mmol/L Normal 5-15 [facility] Comment on above: Order Comment: Order Date: 08/17/24 Order Info: 0786- - CMP Order Info: 3015-08 - TSH Performed By: #### L 501.9520, L500.4050 #### [facility] [address] [place], [address] AST [Catalytic activity/Vol] 32 U/L Normal <=31 [facility] Comment on above: Order Comment: Order Date: 08/17/24 Order Info: 0786-1 - CMP Order Info: 3015-08 - TSH Performed By: #### L 501.9520, L500.4050 #### [facility] [address] [place], [address] Bilirubin [Mass/Vol] 0.35 mg/dL Normal 0.00-1.30 [facility] Comment on above: Order Comment: Order Date: 08/17/24 Order Info: 0786-1 - CMP Order Info: 3 - TSH Performed By: #### L 501.9520, L500.4050 #### [facility] [address] [place], [address] BUN/CRE 26.1 RATIO High 10-20 [facility] Comment on above: Order Comment: Order Date: 08/17/24 Order Info: 0786-1 - CMP Order Info: 3015-3 - TSH Performed By: #### L 501.9520, L500.4050 #### [facility] [address] [place], [address] Calcium [Mass/Vol] 9.8 mg/dL Normal 7.6-11.0 [facility] Comment on above: Order Comment: Order Date: 08/17/24 Order Info: 0786-1 - CMP Order Info: 3 - TSH Performed By: #### L 501.9520, L500.4050 #### [facility] [address] [place], [address] Chloride [Moles/Vol] 101 mmol/L Normal 96-108 [facility] Comment on above: Order Comment: Order Date: 08/17/24 Order Info: 0786-1 - CMP Order Info: 3013 - TSH Performed By: #### L 501.9520, L500.4050 #### [facility] [address] [place], [address] CO2 [Moles/Vol] 25.8 mmol/L Normal 22.0-29.0 [facility] Comment on above: Order Comment: Order Date: 08/17/24 Order Info: 0786-1 - CMP Order Info: 3013 - TSH Performed By: #### L 501.9520, L500.4050 #### [facility] [address] [place], [address] Creatinine [Mass/Vol] 1.1 mg/dL High 0.6-1.0 [facility] Comment on above: Order Comment: Order Date: 08/17/24 Order Info: 0786-1 - CMP Order Info: 3015-08 - TSH Performed By: #### L 501.9520, L500.4050 #### [facility] [address] [place], [address] GFR/1.73 sq M.predicted among non-blacks MDRD (S/P/Bld) [Vol rate/Area] 52 mL/min/{1.73_m2} Low >60 [facility] Comment on above: Order Comment: Order Date: 08/17/24 Order Info: 071 - CMP Order Info: 3 - TSH Result Comment: mL/m in/1.73m2 CKD-EPI Creatinine Equation (2020) Performed By: #### L 501.9520, L500.4050 #### [facility] [address] [place], [address] Globulin (S) [Mass/Vol] 2.5 g/dL Normal 2.2-4.2 [facility] Comment on above: Order Comment: Order Date: 08/17/24 Order Info: 0786- - CMP Order Info: 3015-08 - TSH Performed By: #### L 501.9520, L500.4050 #### [facility] [address] [place], [address] Glucose [Mass/Vol] 107 mg/dL High 70-99 [facility] Comment on above: Order Comment: Order Date: 08/17/24 Order Info: 0786- - CMP Order Info: 3015-08 - TSH Performed By: #### L 501.9520, L500.4050 #### [facility] [address] [place], [address] Potassium [Moles/Vol] 4.0 mmol/L Normal 3.3-5.1 [facility] Comment on above: Order Comment: Order Date: 08/17/24 Order Info: 0786-1 - CMP Order Info: 3015-08 - TSH Performed By: #### L 501.9520, L500.4050 #### [facility] [address] [place], [address] Sodium [Moles/Vol] 141 mmol/L Normal 133-145 [facility] Comment on above: Order Comment: Order Date: 08/17/24 Order Info: 0786-1 - CMP Order Info: 3015-3 - TSH Performed By: #### L 501.9520, L500.4050 #### [facility] [address] [place], [address] T PROT 6.6 g/dL Normal 5.9-8.4 [facility] Comment on above: Order Comment: Order Date: 08/17/24 Order Info: 0786-1 - CMP Order Info: 3 - TSH Performed By: #### L 501.9520, L500.4050 #### [facility] [address] [place], [address] Urea nitrogen [Mass/Vol] 28 mg/dL High 4-19 [facility] Comment on above: Order Comment: Order Date: 08/17/24 Order Info: 0786-1 - CMP Order Info: 3 - TSH Performed By: #### L 501.9520, L500.4050 #### [facility] [address] [place], [address] Creatinine [Moles/Vol]Ordere d By: Marycarmen Gregorio on 08-17-2024 Creatinine [Mass/Vol] 1.1 mg/dL High 0.6-1.0 [facility] GFR/1.73 sq M.predicted mechelle g non-blacks MDRD (S/P/Bld) [Vol rate/Area]Ordered By: Marycarmen Gregorio on 08-17-2024 Estimated GFR (MDRD) Non-Af Amer 52 Low >60 [facility] Comment on above: mL/min/1.73m2 CKD-EP I Creatinine Equation (2020) Laboratory - Chemistry and C hemistry - challengeOrdered By: Marycarmen Gregorio on 08-17-2024 AST [Catalytic activity/Vol] 32 U/L <32 [facility] Serum globulin measurementOr dered By: Marycarmen Gregorio on 08-17-2024 Globulin (S) [Mass/Vol] 2.5 g/dL 2.2-4.2 [facility] Serum glucose measurement (m ass/volume)Ordered By: Marycarmen Gregorio on 08-17-2024 Glucose [Mass/Vol] 107 mg/dL High 70-99 [facility] Serum or plasma alanine miles otransferase (ALT) measurementOrdered By: Marycarmen Gregorio on 08-17-2024 ALT [Catalytic activity/Vol] 27 U/L <35 [facility] Serum or plasma albumin felisa urement (mass/volume)Ordered By: Marycarmen Gregorio on 08-17-2024 Albumin [Mass/Vol] 4.1 g/dL 3.4-4.8 [facility] Serum or plasma albumin/glob ulin mass ratioOrdered By: Marycarmen Gregorio on 08-17-2024 Albumin/Globulin [Mass ratio] 1.6 {ratio} 0.9-2.4 [facility] Serum or plasma alkaline gina sphatase measurementOrdered By: Marycarmen Gregorio on 08-17-2024 ALP [Catalytic activity/Vol] 107 U/L High 35-104 [facility] Serum or plasma anion gap de termination (moles/volume)Ordered By: Marycarmen Gregorio on 08-17-2024 Anion gap [Moles/Vol] 14 mmol/L 5-15 [facility] Serum or plasma calcium felisa urement (mass/volume)Ordered By: Marycarmen Gregorio on 08-17-2024 Calcium [Mass/Vol] 9.8 mg/dL 7.6-11.0 [facility] Serum or plasma potassium me asurementOrdered By: Marycarmen Gregorio on 08-17-2024 Potassium [Moles/Vol] 4.0 mmol/L 3.3-5.1 [facility] Serum or plasma sodium measu rement (moles/volume)Ordered By: Marycarmen Gregorio on 08-17-2024 Sodium [Moles/Vol] 141 mmol/L 133-145 [facility] Serum or plasma urea nitroge n measurement (mass/volume)Ordered By: Marycarmen Gregorio on 08-17-2024 Urea nitrogen [Mass/Vol] 28 mg/dL High 4-19 [facility] TSH DL <= 0.005 mIU/L QnOrde red By: Marycarmen Gregorio on 08-17-2024 Thyroid Stimulating Hormone (TSH) 3.520 uIU/mL 0.300-4.200 [facility] Thyroid Stim Hormone (TSH)on 08-17-2024 TSH 3.520 uIU/mL Normal 0.300-4.200 [facility] Comment on above: Order Comment: Order Date: 08/17/24 Order Info: 0786-1 - CMP Order Info: 3016-3 - TSH Performed By: #### L 501.9520, L500.4050 #### [facility] [address] [place], [address] Total proteinOrdered By: Gwen Gregorio on 08-17-2024 Protein [Mass/Vol] 6.6 g/dL 5.9-8.4 [facility] Basophil percentageOrdered B y: Nadeem Gregorio on 07-28-2023 Chloride [Moles/Vol] 103 mmol/L 98-107 [facility] Cholesterol [Mass/Vol] 174 mg/dL <200 [facility] Comment on above: <200 mg/dL Desirable 200-240 mg/dL Borderline >240 mg/dL High Risk Glucose [Mass/Vol] 154 mg/dL 74-106 [facility] Comment on above: Fasting Glucose resu lt greater than or equal to 126 mg/dL suggests DIABETES MELLITUS per A.D.A. criteria. Potassium [Moles/Vol] 3.8 mmol/L 3.5-5.1 [facility] Sodium [Moles/Vol] 137 mmol/L 136-145 [facility] Triglyceride [Mass/Vol] 244 mg/dL <199 [facility] Comment on above: The drugs N-Acetylcy steine and Metamizole may falsely depress this assay.Serum Triglycerides Reference Interval Normal <150 mg/dL Borderline high 150 - 199 mg/dL High 200 - 499 mg/dL Very High > or = 500 mg/dL Laboratory - Chemistry and C hemistry - challengeOrdered By: Nadeem Gregorio on 07-28-2023 Cholesterol in HDL [Mass/Vol] 45 mg/dL >40 [facility] Comment on above: The drugs N-Acetylcy steine and Metamizole may falsely depress this assay. Reference Range HDL <40 mg/dL Low HDL Cholesterol HDL >or= 60 mg/dL High HDL Cholesterol Cholesterol in LDL [Mass/Vol] 80 mg/dL 0-130 [facility] CO2 [Moles/Vol] 30.0 mmol/L 21.0-32.0 [facility] Urea nitrogen/Creatinine [Mass ratio] 26.5 mg/mg 10-20 [facility] No Panel InformationOrdered By: Nadeem Gregorio on 07-28-2023 Estimated GFR (MDRD) Amer 67 mL/min >60 [facility] Comment on above: GFR Calc Estimated GFR (MDRD) Non-Af Amer 56 mL/min >60 [facility] Comment on above: Non- GFR Calc VLDL Cholesterol 49 mg/dL 5-40 [facility] Serum or plasma calcium felisa urement (mass/volume)Ordered By: Nadeem Gregorio on 07-28-2023 Calcium [Mass/Vol] 9.8 mg/dL 8.5-10.1 [facility] Serum or plasma creatinine m easurement (mass/volume)Ordered By: Nadeem Gregorio on 07-28-2023 Creatinine [Mass/Vol] 1.02 mg/dL 0.55-1.02 [facility] Comment on above: The validity of the calculated GFR & GFRAA in patients over 70 years has not been determined. Clinical correlation is essential. Serum or plasma thyroid stim ulating hormone (TSH) measurement (units/volume)Ordered By: Nadeem Gregorio on 07-28-2023 TSH Qn 2.14 uIU/mL 0.358-3.74 [facility] Serum or plasma urea nitroge n measurement (mass/volume)Ordered By: Nadeem Gregorio on 07-28-2023 Urea nitrogen [Mass/Vol] 27 mg/dL 7-18 [facility] Thin prep Papanicolaou smear with manual screeningOrdered By: Nadeem Gregorio on 07-28-2023 Thin prep Papanicolaou smear with manual screening 4 5-15 [facility] Basophil percentageOrdered B y: Nadeem Gregorio on 02-06-2023 Bilirubin [Mass/Vol] 0.50 mg/dL 0.20-1.00 [facility] Comment on above: For patients on eltr ombopag therapy, use of Dimension [place] TBIL is not recommended. Chloride [Moles/Vol] 105 mmol/L 98-107 [facility] Cholesterol [Mass/Vol] 141 mg/dL <200 [facility] Comment on above: <200 mg/dL Desirable 200-240 mg/dL Borderline >240 mg/dL High Risk Glucose [Mass/Vol] 129 mg/dL 74-106 [facility] Comment on above: Fasting Glucose resu lt greater than or equal to 126 mg/dL suggests DIABETES MELLITUS per A.D.A. criteria. Potassium [Moles/Vol] 3.7 mmol/L 3.5-5.1 [facility] Protein [Mass/Vol] 6.9 g/dL 6.4-8.2 [facility] Sodium [Moles/Vol] 141 mmol/L 136-145 [facility] Triglyceride [Mass/Vol] 242 mg/dL <199 [facility] Comment on above: The drugs N-Acetylcy steine and Metamizole may falsely depress this assay.Serum Triglycerides Reference Interval Normal <150 mg/dL Borderline high 150 - 199 mg/dL High 200 - 499 mg/dL Very High > or = 500 mg/dL Laboratory - Chemistry and C hemistry - challengeOrdered By: Nadeem Gregoroi on 02-06-2023 ALP [Catalytic activity/Vol] 98 U/L 45-117 [facility] ALT [Catalytic activity/Vol] 38 U/L 13-56 [facility] CO2 [Moles/Vol] 30.0 mmol/L 21.0-32.0 [facility] Globulin (S) [Mass/Vol] 3.4 g/dL 2.2-4.2 [facility] Urea nitrogen/Creatinine [Mass ratio] 30.1 mg/mg 10-20 [facility] No Panel InformationOrdered By: Nadeem Gregorio on 02-06-2023 Estimated GFR (MDRD) Amer 67 mL/min >60 [facility] Comment on above: GFR Calc Estimated GFR (MDRD) Non-Af Amer 55 mL/min >60 [facility] Comment on above: Non- GFR Calc Thyroid Stimulating Hormone (TSH) 2.71 uIU/mL 0.358-3.74 [facility] Serum or plasma albumin felisa urement (mass/volume)Ordered By: Nadeem Gregorio on 02-06-2023 Albumin [Mass/Vol] 3.5 g/dL 3.2-5.0 [facility] Serum or plasma albumin/glob ulin mass ratioOrdered By: Nadeem Gregorio on 02-06-2023 Albumin/Globulin [Mass ratio] 1.0 {ratio} 0.9-2.4 [facility] Serum or plasma calcium felisa urement (mass/volume)Ordered By: Nadeem Gregorio on 02-06-2023 Calcium [Mass/Vol] 9.4 mg/dL 8.5-10.1 [facility] Serum or plasma cholesterol in HDL measurement (mass/volume)Ordered By: Nadeem Gregorio on 02-06-2023 Cholesterol in HDL [Mass/Vol] 42 mg/dL >40 [facility] Comment on above: The drugs N-Acetylcy steine and Metamizole may falsely depress this assay. Reference Range HDL <40 mg/dL Low HDL Cholesterol HDL >or= 60 mg/dL High HDL Cholesterol Serum or plasma cholesterol in VLDL measurement (mass/volume)Ordered By: Nadeem Gregorio on 02-06-2023 Cholesterol in VLDL [Mass/Vol] 48 mg/dL 5-40 [facility] Serum or plasma creatinine m easurement (mass/volume)Ordered By: Nadeem Gregorio on 02-06-2023 Creatinine [Mass/Vol] 1.03 mg/dL 0.55-1.02 [facility] Comment on above: The validity of the calculated GFR & GFRAA in patients over 70 years has not been determined. Clinical correlation is essential. Serum or plasma low density lipoprotein (LDL) cholesterol measurement (mass/volume)Ordered By: Nadeem Gregorio on 02-06-2023 Cholesterol in LDL [Mass/Vol] 51 mg/dL 0-130 [facility] Serum or plasma urea nitroge n measurement (mass/volume)Ordered By: Nadeem Gregorio on 02-06-2023 Urea nitrogen [Mass/Vol] 31 mg/dL 7-18 [facility] Thin prep Papanicolaou smear with manual screeningOrdered By: Nadeem Gregorio on 02-06-2023 Thin prep Papanicolaou smear with manual screening 27 U/L 15-37 [facility] Thin prep Papanicolaou smear with manual screening 6 5-15 [facility] CNOVon 10-01-2022 CNOV Office Visit (GENSWS ) ROSEMARY SCHROEDER ([id number]) 1945 F Date Time Provider Department 10/01/22 2:30 PM AILYN TSOCKTON During your visit today, we recorded the following information about you: Temperature Pulse Blood pressure 97.4 degrees 91/minute 143/76 Ailyn Stockton PA-C 10/01/2022 4:43 PM Signed FOLLOW UP VISIT - ENDOSCOPY NAME: Rosemary [facility] [place] [facility] NO.: [id number] DATE OF SERVICE: 10/01/2022 : 1945 REFERRING [...] which included preparing to see the patient, [id number] patient care, completing clinical documentation, obtaining and/or [...] to your office visit today with the [facility]. INSTRUCTIONS FOLLOWING A NORMAL COLONOSCOPY [...] (more content not included)... Normal [facility] SURGICAL PATHOLOGYon 023 Case Report Surgical Pathology Report Case: [id number] Authorizing Provider: Myles Burnham MD Collected: 09/19/2022 12:13 PM Ordering Location: Ambulatory Surgery Received: 09/19/2022 02:40 PM Pathologist: Robinson Terry MD Specimens: A) - DUODENUM BIOPSY B) - ANTRUM (STOMACH) BIOPSY, antral bx for H/H C) - ESOPHAGUS BIOPSY, distal esophagus bx D) - ESOPHAGUS MID BIOPSY [facility] FINAL DIAGNOSIS A. Duodenum, biopsy: - Duodenal [...] - No evidence of esophagitis or eosinophilia. [facility] Gross Description A. DUODENUM BIOPSY Received in [...] in one cassette. Gross examination performed at [facility], [facility] [place] [address] [facility] 09/19/2022 10:36 PM [facility] Performing Lab Diagnostic interpretation performed at [facility], [address] [id number] CLIA# [id number] Assessment Manager: Roger Valiente M.D. [facility] COLONOSCOPY SCREENINGon 08-23 [facility] Colonoscopyon 09-19-2022 Colonoscopy [facility] Gastrointestinal Endoscopy Patient Name: Rosemary Schroeder Procedure [...] for screening purposes. - Return to physician assistant chief of police in 1 week. Procedure Code(s): --- Professional --- 13977, Colonoscopy, flexible; diagnostic, including collection of specimen(s) by brushing or washing, when performed (separate procedure) Diagnosis Code(s): --- Professional --- Z12.11, Encounter for screening for malignant neoplasm of colon Z86.010, Personal history of colonic polyps K64.8, Other hemorrhoids K57.30, Diverticulosis of large intestine without perforation or abscess without bleeding CPT copyright 2020 [employer]. All rights reserved. The codes documented in this report are preliminary and upon fabricator industrial furnace review may be revised to meet current compliance requirements. Attending Participation: I personally performed the entire procedure. Scope In: 12:19:05 PM Scope Out: 12:33:18 PM MD Myles Lee MD 09/19/2022 12:39:46 PM This report has been signed electronically by Myles Burnham MD Number of Addenda: 0 Note Initiated On: 09/19/2022 12:03 PM Estimated Blood Loss: Estimated blood loss: none. Normal [facility] EGD DIAGNOSTICon 09-19-2022 [facility] HISTORY PHYSICALon HISTORY PHYSICAL HNO ID: [id number] Author: Myles Burnham MD Service: General Surgery [...] KNE CONDYLEANDPLATU MEDIALANDLAT COMPARTMENTS Right 2007 Dr. oCrnelius COLONOSCOPY FLX DX W/COLLJ SPEC WHEN PFRMD [...] OF Bilateral 2016 Cataract removal- Dr. Mcclellan, [facility] CURRENT MEDICATIONS Current Outpatient Medications Medication [...] entered by the nurse and reviewed by ks Nursing Notes: Tammy Ty LPN 08/23/2022 8:40 [...] (more content not included)... Normal [facility] NURSING PROGon 09-19-2022 NURSING PROG HNO ID: [id number] Author: Priyanka Marie RN Service: ? Author Type: Registered Nurse Type: Nursing Progress Note Filed: 09/19/2022 1:24 PM Note Text: Patient states that pain is resolved to 3/10 in abdomen and is able to eat and drink what has been provided. Patient states she is ready for discharge. Patient's abdomen appears to be nondistended and soft to palpation. Normal [facility] NURSING PROG HNO ID: [id number] Author: Priyanka Marie RN Service: ? Author Type: Registered Nurse Type: Nursing Progress Note Filed: 09/19/2022 1:14 PM Note Text: Patient stated pain has decreased to 6/10 in abdomen. Patient in bathroom and is able to pass gas and belch. Normal [facility] NURSING PROG HNO ID: [id number] Author: Priyanka Marie RN Service: ? Author Type: Registered Nurse Type: Nursing Progress Note Filed: 09/19/2022 1:13 PM Note Text: Patient arrived laying on left side. Patient states that she is having 7/10 sharp intermittent pain. Patient encouraged to pass gas and belch. Patient's abdomen appears to be slightly distended but soft to palpation. Priyanka Marie RN Normal [facility] SURGICAL PATHOLOGYon 023 CASE REPORT Normal [facility] Comment on above: Order Comment: Speci men Type: TISSUE SPECIMEN Ordering Facility: [facility] Address: [address] [address] Result Comment: Surg [facility] Pathology Report Case: [id number] Authorizing Provider: Myles Burnham MD Collected: 09/19/2022 12:13 PM Ordering Location: Ambulatory Surgery Received: 09/19/2022 02:40 PM Pathologist: Robinson Terry MD Specimens: A) - DUODENUM BIOPSY B) - ANTRUM (STOMACH) BIOPSY, antral bx for H/H C) - ESOPHAGUS BIOPSY, distal esophagus bx D) - ESOPHAGUS MID BIOPSY Performed By: #### S #### [facility] CLIA [id number] [address] [place] [address] FINAL DIAGNOSIS Normal [facility] Comment on above: Order Comment: Speci men Type: TISSUE SPECIMEN Ordering Facility: [facility] Address: [address] [address] Result Comment: A. D uodenum, biopsy: - [...] or eosinophilia. Performed By: #### S #### [facility] CLIA [id number] [address] [place] [address] FINAL PERFORMING LAB Normal [facility] Comment on above: Order Comment: Speci men Type: TISSUE SPECIMEN Ordering Facility: [facility] Address: [address] [address] Result Comment: Diag nostic interpretation performed at [facility], [address] [place] [address] CLIA# [id number] Assessment Manager: Roger Valiente M.D. Performed By: #### S #### [facility] CLIA [id number] [address] [place] [address] [place] GROSS DESCRIPTION [facility] Comment on above: Order Comment: Speci men Type: TISSUE SPECIMEN Ordering Facility: [facility] Address: [address] [place], [place] [id number] Result Comment: A. D UODENUM BIOPSY Received [...] in one cassette. Gross examination performed at [facility], [address] [place], [place] [id number] [facility] 09/19/2022 10:36 PM Performed By: #### S #### [facility] CLIA [id number] [address] [place] [address] [place] Upper GI endoscopy 09-19- 023 Upper GI endoscopy [facility] Gastrointestinal Endoscopy Patient Name: Rosemary Schroeder Procedure [...] physical. Referring Physician: Ailyn Stockton (pa) (Referring ), [...] years for surveillance. - Return to physician assistant chief of police in 1 week. Procedure Code(s): --- Professional --- 65309, Esophagogastroduodeno scopy, flexible, transoral; with biopsy, single or multiple Diagnosis Code(s): --- Professional --- K22.89, Other specified disease of esophagus K29.70, Gastritis, unspecified, without bleeding R10.13, Epigastric pain CPT copyright 2020 [employer]. All rights reserved. The codes documented in this report are preliminary and upon fabricator industrial furnace review may be revised to meet current compliance requirements. Attending Participation: I personally performed the entire procedure. Scope In: 12:12:33 PM Scope Out: 12:16:14 PM MD Myles Lee MD 09/19/2022 12:36:44 PM This report has been signed electronically by Myles Burnham MD Number of Addenda: 0 Note Initiated On: 09/19/2022 12:03 PM Estimated Blood Loss: Estimated blood loss was minimal. Normal [facility] CNOVon 08-23-2022 CNOV Office Visit (GENSWS ) ROSEMARY SCHROEDER ([id number]) 1945 F Date Time Provider Department 08/23/22 [...] OF Bilateral 2016 Cataract removal- Dr. Mcclellan, [facility] Current Outpatient Medications Medication Sig [...] twice vidya (more content not included)... Normal [facility] Basophil percentageOrdered B y: Dr. Gregorio on 07-02-2022 Chloride [Moles/Vol] 102 mmol/L 98-107 [facility] Glucose [Mass/Vol] 129 mg/dL 74-106 [facility] Comment on above: Fasting Glucose resu lt greater than or equal to 126 mg/dL suggests DIABETES MELLITUS per A.D.A. criteria. Potassium [Moles/Vol] 3.7 mmol/L 3.5-5.1 [facility] Sodium [Moles/Vol] 142 mmol/L 136-145 [facility] Laboratory - Chemistry and C hemistry - challengeOrdered By: Dr. Gregorio on 07-02-2022 CO2 [Moles/Vol] 33.0 mmol/L 21.0-32.0 [facility] Urea nitrogen/Creatinine [Mass ratio] 26.7 mg/mg 10- [facility] No Panel InformationOrdered By: Dr. Gregorio on 07-02-2022 Estimated GFR (MDRD) Amer 65 mL/min >60 [facility] Comment on above: GFR Calc Estimated GFR (MDRD) Non-Af Amer 54 mL/min >60 [facility] Comment on above: Non- GFR Calc Serum or plasma calcium felisa urement (mass/volume)Ordered By: Dr. Gregorio on 07-02-2022 Calcium [Mass/Vol] 9.6 mg/dL 8.5-10.1 [facility] Serum or plasma creatinine m easurement (mass/volume)Ordered By: Dr. Gregorio on 07-02-2022 Creatinine [Mass/Vol] 1.05 mg/dL 0.55-1.02 [facility] Comment on above: The validity of the calculated GFR & GFRAA in patients over 70 years has not been determined. Clinical correlation is essential. Serum or plasma urea nitroge n measurement (mass/volume)Ordered By: Dr. Gregorio on 07-02-2022 Urea nitrogen [Mass/Vol] 28 mg/dL 7-18 [facility] Thin prep Papanicolaou smear with manual screeningOrdered By: Dr. Gregorio on 07-02-2022 Thin prep Papanicolaou smear with manual screening 7 5-15 [facility] Basophil percentageon 2021 Bilirubin [Mass/Vol] 0.70 mg/dL 0.20-1.00 [facility] Work Phone: Comment on above: For patients on eltr ombopag therapy, use of Dimension [place] TBIL is not recommended. Chloride [Moles/Vol] 103 mmol/L 98-107 [facility] Work Phone: Glucose [Mass/Vol] 145 mg/dL 74-106 [facility] Work Phone: Comment on above: Fasting Glucose resu lt greater than or equal to 126 mg/dL suggests DIABETES MELLITUS per A.D.A. criteria. Potassium [Moles/Vol] 3.4 mmol/L 3.5-5.1 [facility] Work Phone: Protein [Mass/Vol] 7.1 g/dL 6.4-8.2 [facility]: Sodium [Moles/Vol] 140 mmol/L 136-145 [facility] Work Phone: WBC (Bld) [#/Vol] 9.5 10*3/uL 4.4-11.0 [facility] Work Phone: Blood erythrocytes count (nu mber/volume)on 11-28-2021 RBC (Bld) [#/Vol] 4.34 10*6/uL 4.2-5.4 [facility]: Blood hemoglobin measurement (mass/volume)on 11-28-2021 Hemoglobin (Bld) [Mass/Vol] 13.3 g/dL 12.0-15.0 [facility] Work Phone: Blood platelet mean volumeon 11-28-2021 Platelet mean volume (Bld) [Entitic vol] 9.4 fL 6.2-12.0 [facility] Work Phone: Determination of erythrocyte mean corpuscular volume (MCV)on 11-28-2021 MCV (RBC) [Entitic vol] 96.3 fL 81-99 [facility] Work Phone: Erythrocyte sedimentation ra evan 11-28-2021 ESR (Bld) [Velocity] 10 mm/h 0-[facility] Work [facility]: Hematocrit Auto (Bld) [Volum e fraction]on 11-28-2021 Hematocrit (Bld) [Volume fraction] 41.8 % 37-47 [facility] Work Phone: Laboratory - Chemistry and C hemistry - challengeon 11-28-2021 ALP [Catalytic activity/Vol] 83 U/L 45-117 [facility] Work Phone: ALT [Catalytic activity/Vol] 31 U/L 13-56 [facility] Work Phone: CO2 [Moles/Vol] 30.0 mmol/L 21.0-32.0 [facility] Work Phone: Globulin (S) [Mass/Vol] 3.5 g/dL 2.2-4.2 [facility] Work Phone: Urea nitrogen/Creatinine [Mass ratio] 25.2 mg/mg 10-20 [facility] Work Phone: Laboratory - Hematology and Cell countson 11-28-2021 Erythrocyte distribution width (RBC) [Entitic vol] 44.5 fL 35.1-43.9 [facility] Work Phone: Erythrocyte distribution width (RBC) [Ratio] 12.5 % 11.6-14.6 [facility] Work Phone: MCH (RBC) [Entitic mass] 30.6 pg 27.0-32.0 [facility] Work Phone: MCHC Auto (RBC) [Mass/Vol]on 11-28-2021 MCHC (RBC) [Mass/Vol] 31.8 g/dL 32-36 [facility] Work Phone: No Panel Informationon 11-28 Anti-Gliadin IgA Antibody [address] [facility] Work Phone: Comment on above: Negative 0 - 19 Weak Positive 20 - 30 Moderate to Strong Positive >30 Anti-Gliadin IgG Antibody [address] [facility] Work Phone: Comment on above: Negative 0 - 19 Weak Positive 20 - 30 Moderate to Strong Positive >30 Endomysial IgA Antibody Negative Negative [facility] Work Phone: Estimated GFR (MDRD) Amer 59 mL/min >60 [facility] Work Phone: Comment on above: GFR Calc Estimated GFR (MDRD) Non-Af Amer 49 mL/min >60 [facility] Work Phone: Comment on above: Non- GFR Calc Thyroid Stimulating Hormone (TSH) 2.42 uIU/mL 0.358-3.74 [facility] Work Phone: Tissue Transglutaminase IgG Ab <2 U/mL [facility] Work Phone: Comment on above: Negative 0 - 5 Weak Positive 6 - 9 Positive >9 Vitamin D 25-Hydroxy 34.7 ng/mL [facility] Work Phone: Comment on above: Vitamin D 25(OH) Sta tus Range Deficiency <20 ng/mL (50nmol/L) Insufficiency 20 - 30 ng/mL (50 - 75 nmol/L) Sufficiency 30 - 100 ng/mL (75 - 250 nmol/L) Toxicity >100 ng/mL (>250 nmol/L) Platelets bldon 11-28-2021 Platelets (Bld) [#/Vol] 317 10*3/uL 150-450 [facility] Work Phone: Serum IgA measurement (units /volume)on 11-28-2021 IgA Qn (S) 191 mg/dL [facility] Work Phone: Comment on above: Performed at: [place] [id number] Director: Myron Spence PhD, Phone: [phone] Serum or plasma albumin felisa urement (mass/volume)on 11-28-2021 Albumin [Mass/Vol] 3.6 g/dL 3.2-5.0 [facility] Work Phone: Serum or plasma albumin/glob ulin mass ratioon 11-28-2021 Albumin/Globulin [Mass ratio] 1.0 {ratio} 0.9-2.4 [facility] Work Phone: Serum or plasma calcium felisa urement (mass/volume)on 11-28-2021 Calcium [Mass/Vol] 9.4 mg/dL 8.5-10.1 [facility] Work Phone: Serum or plasma creatinine m easurement (mass/volume)on 11-28-2021 Creatinine [Mass/Vol] 1.15 mg/dL 0.55-1.02 [facility] Work Phone: Comment on above: The validity of the calculated GFR & GFRAA in patients over 70 years has not been determined. Clinical correlation is essential. Serum or plasma urea nitroge n measurement (mass/volume)on 11-28-2021 Urea nitrogen [Mass/Vol] 29 mg/dL 7-18 [facility] Work Phone: Serum tissue transglutaminas e IgA antibody assay (units/volume)on 11-28-2021 tTG IgA Qn (S) <2 U/mL [facility] Work Phone: Comment on above: Negative 0 - 3 Weak Positive 4 - 10 Positive >10 Tissue Transglutaminase (tTG) has been identified as the endomysial antigen. Studies have demonstr- ated that endomysial IgA antibodies have over 99% specificity for gluten sensitive enteropathy. Thin prep Papanicolaou smear with manual screeningon 11-28-2021 Thin prep Papanicolaou smear with manual screening 26 U/L 15-37 [facility] Work Phone: Thin prep Papanicolaou smear with manual screening 7 5-15 [facility] Work Phone: Vital Signs Date Time Vital Sign Value Performing Clinician Rudy rios 10-01-2022 14:38-0400 Body temperature 97.39 [degF] Ailyn [place] PA-C Work Phone: [facility] 10-01-2022 14:38-0400 Diastolic blood pressure 76 mm[Hg] Ailyn Stockton PA-C Work Phone: [facility] 10-01-2022 14:38-0400 Heart rate 91 /min Ailyn Stockton PA-C Work Phone: [facility] 10-01-2022 14:38-0400 SaO2% (BldA) [Mass fraction] 96 % Ailyn Mahin PA-C Work Phone: [facility] 10-01-2022 14:38-0400 Systolic blood pressure 143 mm[Hg] Ailyn Stockton PA-C Work Phone: [facility] 09-19-2022 13:10-0400 Diastolic blood pressure 60 mm[Hg] Myles Burnham MD Work Phone: [facility] 09-19-2022 13:10-0400 Heart rate 62 /min Myles Burnham MD Work Phone: [facility] 09-19-2022 13:10-0400 Respiratory rate 16 /min Myles Burnham MD Work Phone: [facility] 09-19-2022 13:10-0400 SaO2% (BldA) [Mass fraction] 95 % Myles Burnham MD Work Phone: [facility] 09-19-2022 13:10-0400 Systolic blood pressure 141 mm[Hg] Myles Burnham MD Work Phone: [facility] 09-19-2022 11:11-0400 Body temperature 97.81 [degF] Myles Burnham MD Work Phone: [facility] 08-23-2022 08:33-0500 Body height 157.5 cm Ailyn [place] PA-C Work Phone: [facility] 08-23-2022 08:33-0500 Body temperature 97.59 [degF] Ailyn [place] PA-C Work Phone: [facility] 08-23-2022 08:33-0500 Body weight 91.99 kg Ailyn Mahin PA-C Work Phone: [facility] 08-23-2022 08:33-0500 Diastolic blood pressure 88 mm[Hg] Ailyn Mahin PA-C Work Phone: [facility] 08-23-2022 08:33-0500 Heart rate 89 /min Ailyn [place] PA-C Work Phone: [facility] 08-23-2022 08:33-0500 SaO2% (BldA) [Mass fraction] 97 % Ailyn [place] PA-C Work Phone: [facility] 08-23-2022 08:33-0500 Systolic blood pressure 136 mm[Hg] Ailyn Mahin PA-C Work Phone: [facility] Encounters Encounter Date Encounter Type Care Provider Facility Start: 04-05-2025 End: 04-05-2025 ambulatory Marycarmen Gregorio Facility:[facility] Start: 03-15-2025 End: 03-15-[address] Marycarmen Gregorio MD Work Phone: -Laboratory [facility] Start: 03-15-2025 End: 03-15-[address] Marycarmen Gregorio MD -Laboratory [facility] Start: 03-15-2025 End: 03-15-2025 ambulatory Marycarmen Gregorio Facility:[facility] Start: 08-25-2024 End: 08-25-[address] Marycarmen Gregorio MD Work Phone: [facility] Work Phone: Start: 08-25-2024 End: 08-25-[address] Marycarmen Gregorio MD -Outpatient Breast Imaging Work Phone: Start: 08-25-2024 End: 08-25-2024 ambulatory Marycamren Gregorio Facility:[facility] Start: 08-17-2024 End: 08-17-[address] Marycarmen Gregorio MD Work Phone: [facility] Work Phone: Start: 08-17-2024 End: 08-17-[address] [facility]: 08-17-2024 End: 08-17-2024 ambulatory Marycarmen Gregorio Facility:[facility] Start: 10-16-2023 End: 10-21-[address] [facility] Work Phone: Start: 10-16-2023 End: 10-21-[address] [facility] Work Phone: Start: 08-25-2023 End: 08-25-[address] [facility] Work Phone: Start: 08-25-2023 End: 08-25-[address] [facility] Work Phone: Start: 07-28-2023 End: 07-28-2023 Patient encounter procedure [facility] Start: 06-26-2023 End: 06-26-[address] [facility] Work Phone: Start: 06-26-2023 End: 06-26-[address] [facility] Work Phone: Start: 05-01-2023 End: 05-01-[address] [facility] Work Phone: Start: 05-01-2023 End: 05-01-[address] [facility] Work Phone: Start: 02-06-2023 End: 02-06-[address] [facility] Work Phone: Start: 02-06-2023 End: 02-06-2023 Patient encounter procedure [facility] Start: 10-01-2022 End: 10-02-2022 ambulatory MARYCARMEN GREGORIO Facility:[facility] Start: 10-01-2022 End: 10-01-2022 Patient encounter procedure Ailyn Stockton PA-C Work Phone: General Surgery Comment on above: History of gastritis (Primary Dx); History of colonic polyps; Diverticulosis; Hemorrhoids, unspecified hemorrhoid type; Current use of proton pump inhibitor Start: 09-19-2022 End: 09-19-2022 ambulatory MARYCARMEN GREGORIO Facility:[facility] Start: 09-19-2022 End: 09-19-2022 Subsequent hospital visit by physician Myles Burnham MD Work Phone: Ambulatory Surgery Comment on above: Stomach pain [R10.9] Start: 08-23-2022 End: 08-23-2022 ambulatory MARYCARMEN GREGORIO Facility:[facility] Start: 08-23-2022 End: 08-23-2022 Patient encounter procedure Ailyn Stockton PA-C Work Phone: General Surgery Comment on above: Epigastric pain (Carlie alysa Dx); History of gastritis; History of colonic polyps; Encounter for screening for malignant neoplasm of colon; Gastroesophageal reflux disease, unspecified whether esophagitis present Start: 08-20-2022 End: 08-20-[address] [facility] Work Phone: Start: 08-20-2022 End: 08-20-[address] [facility] Start: 07-02-2022 End: 07-02-[address] [facility] Work Phone: Start: 07-02-2022 End: 07-02-[address] [facility] Start: 04-01-2022 End: 04-01-[address] [facility] Start: 11-28-2021 End: 11-28-[address] [facility] [facility] Procedures Date Procedure Procedure Detail Performing Clinician Start: 03-15-2025 Urine microalbumin/creatinine ratio measurement Dr. Marycarmen Gregorio MD Work Phone: Start: 03-15-[address] Magnus Gregorio MD Work Phone: Start: 08-25-[address] Marycarmen Gregorio MD Work Phone: Start: 08-25-2023 Screening mammography Start: 05-01-2023 Complete x-ray series of lumbar spine with bending views Start: 05-01-2023 Radiologic examination of knee Start: 09-19-2022 Level iv surg pathology gross&microscopic exam Myles Burnham MD Work Phone: Start: 09-19-2022 Esophagogastroduodenoscopy transoral diagnostic Ailyn Stockton PA-C Work Phone: Start: 09-19-2022 Colonoscopy flx dx w/collj spec when pfrmd Ailny Stockton PA-C Work Phone: Start: 09-19-2022 Colonoscopy Ailyn Stockton PA-C Work Phone: Start: 08-20-2022 Screening mammography Start: 04-01-2022 X-ray of soft tissue of neck Plan of Treatment Date Care Activity Detail Author Start: 09-20-2027 Colonoscopy COLONOSCOPY [facility] Start: 09-20-2027 COLORECTAL CANCER SCREENING COLORECTAL CANCER SCREENING [facility] Start: 02-21-2023 Covid-19 Vaccine () Covid-19 Vaccine () [facility] Start: 02-21-2023 Influenza vaccination Influenza Vacc ine (#1) [facility] Start: 06-23-2022 ADVANCE DIRECTIVE DISCUSSION ADVANCE DIRECTIVE DISCUSSION [facility] Start: 06-23-2022 DEPRESSION ASSESSMENT DEPRESSION ASS ESSMENT [facility] Start: 01-02-2022 COVID-19 VACCINE (5 - Booster for Pfizer series) COVID-19 VACCINE (5 - Booster for Pfizer series) [facility] Start: 2009 BONE DENSITY BONE DENSITY [facility] Start: 2009 Bone Density Screening Bone Density Screening [facility] Start: 2009 PNEUMOCOCCAL: 65+ (1 - PCV) PNEUMOCOCCAL: 65+ (1 - PCV) [facility] Start: 2004 RSV Vaccine (1 - 1-d ose 60+ series) RSV Vaccine (1 - 1-dose 60+ series) [facility] Start: 1994 SHINGRIX VACCINE (1 of 2) SHINGRIX V ACCINE (1 of 2) [facility] Start: 1989 COLOGUARD (FIT-DNA) COLOGUARD (FIT-D NA) [facility] Start: [address] COLONOGRAPHY [facility] Start: 1989 [facility] Start: 1989 Diabetes Screening Diabetes Screenin g [facility] Start: 1989 FECAL OCCULT BLOOD FECAL OCCULT BLOO D [facility] Start: 1989 SIGMOIDOSCOPY SIGMOIDOSCOPY [facility] Start: 09-28-1963 Urine microalbumin profile [facility] Start: 1962 HEPATITIS C SCREENING HEPATITIS C SC LUIS M [facility] Immunizations Immunization Date Immunization Notes Care Provider Bipin ladd 03-22-2022 influenza virus vacc ine, unspecified formulation Myles Burnham MD Work Phone: [facility] Payers Date Payer Category Payer Self-pay [id number] 2021 Unknown [id number] 2021 Unknown MMO MMO MEDICARE SUPPLEMENT [id number] 2021-Present [phone] [address] [place] [address] Indemnity [id number] 2011 Unknown [id number] 2009 Medicare MEDICARE MEDICAR E A AND B [id number] 2009-Present [phone] [address] [address] [place] [address] Medicare [id number] 1998 Medicare [id number] Self-pay [id number] Unknown [id number] Unknown [id number] Unknown [id number] Unknown [id number] Social History Date Type Detail Facility Start: 11-25-2018 End: 11-25-2018 Tobacco smoking status NHIS Unknown if ever smoked [facility] Start: 11-03-2018 Non-smoker [facility] Start: 1945 Sex Assigned At Female [facility] Start: 11-25-2018 End: 08-23-2022 Tobacco smoking status NHIS Never smoked tobacco [facility] Start: 08-23-2022 Tobacco use and exposure Smokeless tobacco non-user [facility] Start: 08-23-2022 End: 09-19-2022 Alcohol intake Current non-drinker of alcohol (finding) [facility] Start: 1945 Sex Assigned At Not on file [facility] Start: 08-23-2022 End: 09-19-2022 History of Social function [facility] Start: 08-23-2022 End: 09-19-[address] [facility] National Score (1-100), lower number is lower risk 52 [facility] Start: 08-30-2024 End: 09-05-2024 Sex Female (finding) [facility] Clinical Notes 08-23-2022 to 07-24-2023 Note Date & Type Note Facility 07-24-2023 Discharge summary Note Date/Time July 24, 2023 11:06am [facility] [address] [place] [address] [address] [place] [address] / REHABILITATION SERVICES DISCHARGE SUMMARY MR#: [id number] Acct: [id number] Name: ROSEMARY SCHROEDER Rep #: [id number] : 1945 77 From: John Wasserman PT, ATC Referring Dr.: Dr. Nadeem Gregorio MD Statu s: REG RCR Insurance: MEDICARE PART A B [facility] Discharge Summary D/C summary: It has [...] please feel free to call me at [phone]. Thank you for the referral of thispatient. Sincerely, John Wasserman, PT, ATC Balance/Gait/Functional tests Balance/Special Test Scores Quick DASH Score: 27.2725 Improvement % Improvement: 85 <Electronically signed by John Wasserman PT, ATC> 07/24/23 1106 CC: Dr. Nadeem Gregorio MD ~ [facility] Signed [facility] Work Phone: [phone]) 850-504804-11-2023 NoteHNO ID: [id number] Author: Ailyn Stockton PA-C Service: ? Author Type: Physician Supervisor Area Type: Progress Notes Filed: 10/01/2022 4:43 PM Note Text: FOLLOW UP VISIT - ENDOSCOPY NAME: Rosemary Schroeder [facility] NO.: [id number] DATE OF SERVICE: 10/01/2022 : 1945 REFERRING [...] which included preparing to see the patient, [id number] patient care, completing clinical documentation, obtaining and/or reviewing separately obtained history, counseling and educating the patient/family/caregiver, independently interpreting results (not separately reported), and communicating results to the patient/family/caregiver. [facility]04-11-2023 Instructions* Patient Instructions* Ailyn Stockton PA-C - [...] to your office visit today with the [facility] General Surgeons. INSTRUCTIONS FOLLOWING A [...] you should contact our office immediately @ [phone] and ask to be transferred to the General Surgery department. [facility] History of Present illness Narrative* Ailyn Stockton PA-C - 10/01/2022 2:42 PM EDT FOLLOW UP VISIT - ENDOSCOPY NAME: Rosemary Schroeder CLINIC NO.: [id number] DATE OF SERVICE: 10/01/2022 : 1945 REFERRING [...] which included preparing to see the patient, [id number] patient care, completing clinical documentation, obtaining and/or reviewing separately obtained history, counseling and educating the patient/family/caregiver, independently interpretin g results (not separately reported), and communicating results to the patient/family/caregiver. Ailyn Stockton PA-C [facility] Nurse Note* Priyanka Marie RN - 09/19/2022 [...] palpation. Priyanka Marie RN [facility]-30-[facility]23 History and physical note * Myles Burnham [...] OF 2007 Left breast lesion removal- Dr. Bunrham PAST SURGICAL HISTORY OF Bilateral 2016 Cataract removal- Dr. Mcclellan, [facility] CURRENT MEDICATIONS Current Outpatient Medications Medication [...] entered by the nurse and reviewed by ks Nursing Notes: Tammy Ty LPN 08/23/2022 8:40 [...] patient was offered a surgery/procedure at a [facility] facility. I have counseled the patient [...] 2022 TIME: 12:05 PM documented in [facility]03-03-2023 NoteHNO ID: [id number] Author: Ailyn Stockton PA-C Service: ? Author Type: Physician Supervisor Area Type: Progress Notes Filed: 09/03/2022 12:42 PM [...] OF Bilateral 2016 Cataract removal- Dr. Mcclellan, [facility] Current Outpatient Medications Medication Sig [...] entered by the nurse and reviewed by ks Nursing Notes: Tammy Ty LPN 08/23/2022 8:40 [...] and denies (more content not included)...[facility] History of Present illness Narrative* Ailyn Stockton [...] OF Bilateral 2016 Cataract removal- Dr. Mcclellan, [facility] Current Outpatient Medications Medication Sig [...] entered by the nurse and reviewed by ks Nursing Notes: Tammy Ty LPN 08/23/2022 8:40 [...] PFSH and ROS obtained by others. Ailyn Stcokton PA-C PHYSICAL EXAMINATION: General: The patient is [...] patient was offered a surgery/procedure at a [facility] facility. I have counseled the patient [...] mail. Ailyn Stockton PA-C documented in this encounterFlower Hospital03-03-2023 Nurse Note* Tammy Ty LPN - 08/23/2022 [...] 2015 Tammy Ty LPN [facility] noteNo assessment information availableWOhio[facility] Work Phone: Evaluation note* Diagnosis Epigastric pain- Primary Abdominal pain, epigastric History of gastritis Personal history of other diseases of digestive system History of colonic polyps Personal history of colonic polyps Encounter for screening for malignant neoplasm of colon Special screening for malignant neoplasms, colon Gastroesophageal reflux disease, unspecified whether esophagitis present documented in this encounter [facility] note* Diagnosis History of gastritis- Primary Personal history of other diseases of digestive system History of colonic polyps Personal history of colonic polyps Diverticulosis Diverticulosis of colon (without mention of hemorrhage) Hemorrhoids, unspecified hemorrhoid type Current use of proton pump inhibitor Encounter for long-term (current) use of other medications documented in this encounter [facility] note* Diagnosis Encounter for screening colonoscopy- Primary Special screening for malignant neoplasms, colon Stomach pain Dyspepsia and other specified disorders of function of stomach Long-term current use of proton pump inhibitor therapy Gastroesophageal reflux disease with esophagitis without hemorrhage History of colonic polyps Personal history of colonic polyps documented in this encounter [facility] for referral (narrative)* Outpatient Procedure (Routine) - Closed Specialty Diagnoses / Procedures Referred By Trav otoole Referred [facility] Diagnoses Stomach pain Long-term current use of proton pump inhibitor therapy Gastroesophageal reflux disease with esophagitis without hemorrhage History of colonic polyps Procedures EGD DIAGNOSTIC ESOPHAGOGASTRODUODENOSC OPY TRANSORAL DIAGNOSTIC Ailyn Stockton PA-C [address] [place] [address] [facility] [place] [address] [place] [address] Referral ID Status Reason Start Date Expiration Date V isits Requested Visits Authorized [id number] Closed Auto-Generate d Referral 08/23/2022 08/24/2023 1 [...] PFRMD Ailyn Stockton PA-C [address] [place] [address] [facility] [place] [address] [place] [id number] Referral ID Status Reason Start Date Expiration Date V isits Requested Visits Authorized [id number] Closed Auto-Generate d Referral 08/23/2022 08/24/2023 1 1 [facility])No reason for referral information availableWOhioHealth Van [facility] Work Phone: Reason for visit Narrative* Outpatient Procedure (Routine) - Closed Specialty Diagnoses / Procedures Referred By Contac t Referred To Contact [facility] Diagnoses Stomach pain Long-term current use of proton pump inhibitor therapy Gastroesophageal reflux disease with esophagitis without hemorrhage History of colonic polyps Procedures EGD DIAGNOSTIC ESOPHAGOGASTRODUODENOSC OPY TRANSORAL DIAGNOSTIC Ailyn Stockton PA-C [address] [place] [address] [facility] [address] [address] Referral ID Status Reason Start Date Expiration Date V isits Requested Visits Authorized [id number] Closed Auto-Generate d Referral 08/23/2022 08/24/2023 1 1 [facility] Advance Directives No Advanced Directives Records Found Advance Directive Response Recorded Date/ Time Living Will No November 03, 2018 2 :22pm Power of Handle Bender Yes November 03, 2018 2:22pm Advance Directive Response Recorded Date/ Time Living Will No November 03, 2018 1 :22pm Power of Handle Bender Yes November 03, 2018 1:22pm Chief Complaint [...] Date Dose Rate Site benzocaine 20% 1 [place] (TOPEX) 1 [place], TOPICAL, DIRECTED, Starting on Tabby 09/19/22 at [...] Primary Care Provider, Atte nding Provider Active Gluten Settling Tender Relationship Specialty Start Date End Date Marycarmen Gregorio MD [address] [place], [place] [id number] PCP - General Family Medicine 08/19/22 Gluten Settling Tender Relationship Specialty Start Date End Date Marycarmen Gregorio MD [address], [place] [id number] PCP - General Family Medicine 08/19/22 Gluten Settling Tender Relationship Specialty Start Date End Date Marycarmen Gregorio MD [address], [place] [address] PCP - General Family Medicine 08/19/22 Team [...] Active Start: August 25, 2024 Dr. Marycarmen Gregorio [...] August 25, 2024 End: August 25, 2024 Team Status: Active Member Role/Relationship Status Dates Dr. Marycarmen Gregorio MD Primary care physician Act parker Team Status: Inactive Member Role/Relationship Status Dates Dr. Marycarmen Gregorio MD Primary care physician Act parker Start: March 15, 2025 End: March 15, 2025 Dr. Marycarmen Gregorio MD Attending physician Active Start: March 15, 2025 End: March 15, 2025 Source Comments (unrecognize d section and content) In the event this informatio n is protected by the Federal Confidentiality of Alcohol and Drug Abuse Patient Records regulations: The Federal rules restrict any use of the information to criminally investigate or prosecute any alcohol or drug abuse patient.[facility] Hospital[facility] the event this information is protected by the Federal Confidentiality of Alcohol and Drug Abuse Patient Records regulations: The Federal rules restrict any use of the information to criminally investigate or prosecute any alcohol or drug abuse patient.[facility] HospitalIn the event this information is protected by the Federal Confidentiality of Alcohol and Drug Abuse Patient Records regulations: The Federal rules restrict any use of the information to criminally investigate or prosecute any alcohol or drug abuse patient.[facility] Reason for Visit (unrecogniz ed section and content) Reason Comments Consult EGD Reason Comments Follow Up colonoscopy INFORMATION SOURCE (unrecogn ized section and content) DATE CREATED AUTHOR 10/08/2022 [facility] DATE CREATED AUTHOR AUTHOR'S RACHAEL JEFFREY 04/18/2025 [facility] FOR RECORDS PERTAINING TO PATIENTS WHO [...] BE BASED ON THE PRIMARY CLINICAL RECORDS. [employer] provides no warranty or guarantee of the accuracy or completeness of information in this document.
== END | disposition home or self-care (01) ==
LOC: MTLAB 12:39
PROVIDERS: PCP Family Medicine; Referring Provider Family Medicine; Visit Provider Family Medicine
DX: N18.30 Chronic kidney disease, stage 3 unspecified (principal)
CPT/HCPCS: 36415; 80048; 82306; 83540; 83970; 85025